=== PATIENT | female | born 1945 | race Caucasian/White ===

== ENCOUNTER 2017-04-19 16:59 | Inpatient (IN) | payer MEDICARE, BC ==
[~2017-04-19] VITALS: Ht 165.1 cm; Wt 84.4 kg
[~2017-04-19 16:59] MED LIST: AMLO5 PO; ASPI81TA45 PO; COMB0.2S EACH EYE; COZA100T PO; FENO50TA PO; FLUO20TA20 PO; GLUCTAB PO; HYDR-2768 PO; HYDR-3533 PO; HYDRA50 PO; ISOS30 PO; LEVA500T PO; LIPI20TA PO; METO50TA PO; PREM1.25 PO; TRAV0.00 EACH EYE
[2017-04-19 17:04] VITALS: BP 180/81; PULSE 61; RESP 18; TEMP 98.4; O2SAT 91
[2017-04-19] MEDS ORDERED: FLUO1TAB3 PO (17:39)
[2017-04-19] MEDS ORDERED: ESTR1.25 PO (17:39)
[2017-04-19] MEDS ORDERED: CELE1CAP8 PO (17:39)
[2017-04-19] MEDS ORDERED: METF500T PO (17:39)
[2017-04-19] MEDS ORDERED: CREO3000 PO (17:39)
[2017-04-19] MEDS ORDERED: AMLO5TAB2 PO (17:39)
[2017-04-19] MEDS ORDERED: HYDR-3516 PO (17:39)
[2017-04-19] MEDS ORDERED: COMB0.2S EACH EYE (17:39)
[2017-04-19] MEDS ORDERED: ASPI81CH6 CHEW (17:39)
[2017-04-19] MEDS ORDERED: TRAV0.00 EACH EYE (17:39)
[2017-04-19] MEDS ORDERED: METO25TA3 PO (17:39)
[2017-04-19] MEDS ORDERED: HYDR-3801 PO (17:39)
[2017-04-19] MEDS ORDERED: LOMO2.5T PO (17:39)
[2017-04-19] MEDS ORDERED: FENO145T2 PO (17:39)
[2017-04-19] MEDS ORDERED: OSEL75 PO (17:39)
[2017-04-19] MEDS ORDERED: ISOS30TA3 PO (17:39)
[2017-04-19] MEDS ORDERED: POTA10CA PO (17:39)
[2017-04-19] MEDS ORDERED: ATOR20TA15 PO (17:39)
[2017-04-19] MEDS ORDERED: HYOS1SUB SL ×2 (17:39)
[2017-04-19] MEDS ORDERED: HYDR25TA5 PO (17:39)
--- NOTE | 2017-04-19 17:40 | PD ---
HPI Chief Complaint: Cold / Flu Symptoms Time Seen by Provider: 17:31 Travel History International Travel<30 days: No Contact w/Intl Traveler<30days: No Traveled to known affect area: No History of Present Illness HPI 71-year-old female patient with history of hypertension, diabetes, presents to the ER today for 1 week history of nausea, vomiting, fatigue, body aches, diarrhea, and had seen her primary care doctor, diagnosed with influenza without testing, and given Tamiflu. She states that since then her symptoms are not improving, she is feeling more weak, not able to eat or drink much. She states that she is mostly nauseous today but has not vomited. She is incontinent of stool. She denies any abdominal pain, chest pains, or other issues. She does not know any sick contacts. Modifying Factors: None Associated Signs & Symptoms: Nausea, vomiting, diarrhea, gentle fatigue Risk Factors: On Tamiflu, suspect of having influenza PFSH Past Medical History Hx Anticoagulant Therapy: Yes Arthritis: Yes Asthma: Yes Cancer: Yes (SKIN) Cardiovascular Problems: Yes High Cholesterol: Yes Diabetes: Yes Patient Takes Glucophage: Yes Diminished Hearing: No Genitourinary: No Hypertension: Yes Musculoskeletal: No Neurologic: No Psychiatric: No Reproductive: No Respiratory: Yes Triglycerides - High: Yes Tetanus Vaccination: < 5 Years Influenza Vaccination: No ?: Not Menopausal: Yes : 1 Para: 1 Miscarriage: 0 : 0 Past Surgical History Abdominal Surgery: Yes (HERNIA REPAIR, BOWEL OBSTRUCTION) Cholecystectomy: Yes Eye Surgery: Yes (rt retinal repair) Hysterectomy: Yes Other Surgery: Yes (CORRECTIVE SURGERY L FOOT.) Social History Alcohol Use: No Tobacco Use: No Substance Use: No Allergies-Medications (Allergen,Severity, Reaction): Coded Allergies: metronidazole (Unverified Allergy, Severe, Itching, 04/19/17) morphine (Verified Allergy, Severe, Itching, jittery, 04/19/17) penicillin G (Unverified Allergy, Severe, HIVES, 04/19/17) Reported Meds & Prescriptions Reported Meds & Active Scripts Active Reported Lomotil (Diphenoxylate-Atropine) 2.5-0.025 Mg Tab 1 Tab PO Q6H PRN Hyoscyamine Odt (Hyoscyamine Sulfate) 0.125 Mg Subl 0.125 Mg SL Q6H Tamiflu (Oseltamivir Phosphate) 75 Mg Cap 75 Mg PO BID Hydrocodone-Acetaminophen 5-325 mg Tab 1 Tab PO Q6H PRN Hyoscyamine Odt (Hyoscyamine Sulfate) 0.125 Mg Subl 0.125 Mg SL Q6H Metoprolol Tartrate 25 Mg Tab 25 Mg PO TID Creon (Pancrelipase) 3,000-9,500-15,000 Units Cap 1 Cap PO TIDPC Celecoxib 200 Mg Cap 200 Mg PO DAILY Hydralazine (Hydralazine HCl) 100 Mg Tab 50 Mg PO TID Take with meals Potassium Chloride ER (Potassium Chloride) 10 Meq Cap 10 Meq PO DAILY Hydrochlorothiazide 25 Mg Tab 25 Mg PO DAILY Fluoxetine (Fluoxetine HCl) 20 Mg Tab 20 Mg PO DAILY Fenofibrate 145 Mg Tab 145 Mg PO DAILY Isosorbide Mononitrate ER (Isosorbide Mononitrate) 30 Mg Silvio 30 Mg PO DAILY Combigan Opth Drops (Brimonidine-Timolol Opth Drops) 0.2-0.5% Soln 1 Drop EACH EYE Q12HR Travatan Z Opth Drops (Travoprost) 0.004 % Soln 1 Drop EACH EYE HS Amlodipine (Amlodipine Besylate) 5 Mg Tab 5 Mg PO BID Metformin (Metformin HCl) 500 Mg Tab 500 Mg PO BIDPC Premarin (Estrogens Conjugated) 1.25 Mg Tab 1.25 Mg PO DAILY Atorvastatin (Atorvastatin Calcium) 20 Mg Tab 20 Mg PO HS Aspirin Low Dose (Aspirin) 81 Mg Chew 81 Mg CHEW DAILY Review of Systems Except as stated in HPI: all other systems reviewed are Neg Physical Exam Narrative GENERAL: Well-developed elderly white female patient currently in mild distress. Awake and oriented 3. SKIN: Focused skin assessment warm/dry. HEAD: Atraumatic. Normocephalic. EYES: Pupils equal and round. No scleral icterus. No injection or drainage. ENT: No nasal bleeding or discharge. Mucous membranes pink and moist. NECK: Trachea midline. No JVD. Supple. CARDIOVASCULAR: Regular rate and rhythm. No murmur appreciated. RESPIRATORY: No accessory muscle use. Clear to auscultation. Breath sounds equal bilaterally. GASTROINTESTINAL: Abdomen soft, non-tender, nondistended. Hepatic and splenic margins not palpable. MUSCULOSKELETAL: No obvious deformities. No clubbing. No cyanosis. No edema. NEUROLOGICAL: Awake and alert. No obvious cranial nerve deficits. Motor grossly within normal limits. Normal speech. PSYCHIATRIC: Appropriate mood and affect; insight and judgment normal. Data Data Last Documented VS Vital Signs Date Time Temp Pulse Resp B/P (MAP) Pulse Ox O2 Delivery O2 Flow Rate FiO2 04/19/17 20:15 64 18 183/88 (119) 95 Nasal Cannula 3.00 04/19/17 17:04 98.4 Orders Orders Sepsis Workup Initiated (04/19/17 ) Complete Blood Count With Diff (04/19/17 17:31) Comprehensive Metabolic Panel (04/19/17 17:31) Lactic Acid Sepsis Protocol (04/19/17 17:31) Magnesium (Mg) (04/19/17:31) Lipase (04/19/17:) Urinalysis - C+S If Indicated (04/19/17:) Influenzae A/B Antigen (04/19/17 17:31) Blood Culture (04/19/17:31) Chest, Single Ap (04/19/17:31) Blood Glucose (04/19/17:31) Ecg Monitoring (04/19/17 17:31) Iv Access Insert/Monitor (04/19/17 17:31) Oximetry (04/19/17 17:31) Oxygen Administration (04/19/17 17:31) Sodium Chlor 0.9% 1000 Ml Inj (Ns 1000 M (04/19/17 17:45) Ondansetron Inj (Zofran Inj) (04/19/17 17:45) Ct Abd/Pel W Iv Contrast(Rout) (04/19/17 19:01) Promethazine Inj (Phenergan Inj) (04/19/17 19:15) Iohexol 350 Inj (Omnipaque 350 Inj) (04/19/17 19:58) Admit Order (Ed Use Only) (04/19/17 21:05) Labs Laboratory Tests Test 04/19/17 17:50 04/19/17 19:30 04/19/17 20:20 White Blood Count 4.5 TH/MM3 Red Blood Count 3.89 MIL/MM3 Hemoglobin 12.2 GM/DL Hematocrit 35.1 % Mean Corpuscular Volume 90.2 FL Mean Corpuscular Hemoglobin 31.5 PG Mean Corpuscular Hemoglobin Concent 34.9 % Red Cell Distribution Width 13.0 % Platelet Count 285 TH/MM3 Mean Platelet Volume 7.7 FL CBC Comment AUTO DIFF Differential Total Cells Counted 100 Neutrophils % (Manual) 48 % Band Neutrophils % 10 % Lymphocytes % 17 % Monocytes % 25 % Neutrophils # (Manual) 2.6 TH/MM3 Differential Comment FINAL DIFF MANUAL Platelet Estimate NORMAL Platelet Morphology Comment NORMAL Blood Urea Nitrogen 16 MG/DL Creatinine 0.51 MG/DL Random Glucose 133 MG/DL Total Protein 7.1 GM/DL Albumin 2.9 GM/DL Calcium Level 7.8 MG/DL Magnesium Level 1.6 MG/DL Alkaline Phosphatase 34 U/L Aspartate Amino Transf (AST/SGOT) 45 U/L Alanine Aminotransferase (ALT/SGPT) 30 U/L Total Bilirubin 0.2 MG/DL Sodium Level 116 MEQ/L Potassium Level 3.3 MEQ/L Chloride Level 77 MEQ/L Carbon Dioxide Level 30.4 MEQ/L Anion Gap 9 MEQ/L Estimat Glomerular Filtration Rate 119 ML/MIN Lactic Acid Level 2.4 mmol/L 1.7 mmol/L Lipase 155 U/L Urine Collection Type CLEAN CATCH Urine Color YELLOW Urine Turbidity CLEAR Urine pH 6.0 Urine Specific [place] 1.013 Urine Protein NEG mg/dL Urine Glucose (UA) NEG mg/dL Urine Ketones NEG mg/dL Urine Occult Blood NEG Urine Nitrite NEG Urine Bilirubin NEG Urine Leukocyte Esterase NEG Urine RBC 0-3 /hpf Urine WBC 0-2 /hpf Urine Squamous Epithelial Cells 0-5 /hpf Urine Bacteria OCC /hpf Urine Mucus OCC /lpf Microscopic Urinalysis Comment CULT NOT INDICATED MDM Medical Decision Making Medical Screen Exam Complete: Yes Emergency Medical Condition: Yes Medical Record Reviewed: Yes Interpretation(s) Laboratory Tests Test 04/19/17 17:50 04/19/17 19:30 04/19/17 20:20 Red Blood Count 3.89 MIL/MM3 (4.00-5.30) Band Neutrophils % 10 % (0-6) Monocytes % 25 % (0-8) Random Glucose 133 MG/DL (74-106) Albumin 2.9 GM/DL (3.4-5.0) Calcium Level 7.8 MG/DL (8.5-10.1) Alkaline Phosphatase 34 U/L (45-117) Aspartate Amino Transf (AST/SGOT) 45 U/L (15-37) Sodium Level 116 MEQ/L (136-145) Potassium Level 3.3 MEQ/L (3.5-5.1) Chloride Level 77 MEQ/L (98-107) Lactic Acid Level 2.4 mmol/L (0.4-2.0) Urine Bacteria OCC /hpf (NONE) Last 24 hours Impressions Abdomen/Pelvis CT 04/19/17 1901 Signed Impressions: Service Date/Time: Wednesday, April 19, 2017 19:48 - CONCLUSION: No acute findings. Mild diverticula throughout the colon without radiographic evidence of diverticulitis. Osmar Leger MD Chest X-Ray 04/19/17 1731 Signed Impressions: Service Date/Time: Wednesday, April 19, 2017 17:37 - CONCLUSION: The lungs are clear. Osmar Leger MD Differential Diagnosis Nausea, vomiting, diarrhea, general weakness: Dehydration versus gastroenteritis versus influenza versus other acute intra-abdominal processes Narrative Course Influenza testing is positive for influenza. She has significant hyponatremia. IV fluids and Zofran as well as Phenergan was given in the ER. CAT scan of the abdomen did not show any signs of acute intra-abdominal processes. At this point, my plan would be to admit her for further evaluation and treatment of her left light abnormalities, dehydration, and influenza. Case was discussed with Dr. Kumar for admission. Diagnosis Primary Impression: Influenza Additional Impressions: Hyponatremia Dehydration, severe Admitting Information Admitting Physician Requests: Admit Anshul Akbar MD Apr 19, 2017 17:40
[2017-04-19] MEDS ORDERED: ONDANSETRON HCL 4 MG/2 ML VIAL IV PUSH ONE (17:45)
[2017-04-19] MEDS ORDERED: SODIUM CHLOR 0.9% 1000 ML INJ 1,000 ML IV ONE (17:45)
--- NOTE | 2017-04-19 17:50 | RADRPT ---
EXAM DATE/TIME: 04/19/2017 17:37 [facility] COMPARISON: CHEST SINGLE AP, September 04, 2015, 5:24. INDICATIONS : Cough. MEDICAL HISTORY : Hypertension. Diabetes mellitus type II. Carcinoma, basal cell. Hypercholesterolemia. SURGICAL HISTORY : Thoracotomy ENCOUNTER: Initial ACUITY: 3 days PAIN SCORE: 0/10 LOCATION: Bilateral chest FINDINGS: A single view of the chest demonstrates the lungs to be symmetrically aerated without evidence of mas s, infiltrate or effusion. The cardiomediastinal contours are unremarkable. Osseous structures are intact. CONCLUSION: The lungs are clear. Osmar Leger MD on April 19, 2017 at 17:48 Board Certified Radiologist. This report was verified electronically.
[2017-04-19 18:00] VITALS: BP 178/81; PULSE 59; RESP 18; O2SAT 92
[2017-04-19 18:07] LABS: HEMATOCRIT 35.1 % (35.0-46.0); HEMOGLOBIN 12.2 GM/DL (11.6-15.3); MEAN CELL VOLUME 90.2 FL (80.0-100.0); MEAN CORPUSCULAR HEMOGLOBIN 31.5 PG (27.0-34.0); MEAN CORPUSCULAR HGB CONC 34.9 % (32.0-36.0); MEAN PLATELET VOLUME 7.7 FL (7.0-11.0); PLATELET COUNT 285 TH/MM3 (150-450); RED BLOOD COUNT 3.89 MIL/MM3 (4.00-5.30); WHITE BLOOD COUNT 4.5 TH/MM3 (4.0-11.0)
[2017-04-19 18:28] LABS: LACTIC ACID SEPSIS PROTOCOL 2.4 mmol/L (0.4-2.0)
[2017-04-19 18:33] LABS: ALBUMIN 2.9 GM/DL (3.4-5.0); ALKALINE PHOSPHATASE 34 U/L (45-117); ALT (GPT) 30 U/L (10-53); AST (GOT) 45 U/L (15-37); BICARBONATE 30.4 MEQ/L (21.0-32.0); BLOOD UREA NITROGEN 16 MG/DL (7-18); CALCIUM 7.8 MG/DL (8.5-10.1); CHLORIDE 77 MEQ/L (98-107); CREATININE 0.51 MG/DL (0.50-1.00); GLOMERULAR FILTRATION RATE 119 ML/MIN (>89); GLUCOSE,RANDOM 133 MG/DL (74-106); MAGNESIUM 1.6 MG/DL (1.5-2.5); TOTAL BILIRUBIN ADULT 0.2 MG/DL (0.2-1.0); TOTAL PROTEIN 7.1 GM/DL (6.4-8.2)
[2017-04-19 18:36] LABS: SODIUM (NA) 116 MEQ/L (136-145)
[2017-04-19 18:40] LABS: BANDS 10 % (0-6); LYMPHOCYTES 17 % (9-44); MONOCYTES 25 % (0-8); NEUTROPHIL # MANUAL DIFF 2.6 TH/MM3 (1.8-7.7); POLYS (SEG NEUTROPHILS) 48 % (16-70)
[2017-04-19 19:00] VITALS: BP 179/84; PULSE 64; RESP 18; O2SAT 94
[2017-04-19] MEDS ORDERED: PROMETHAZINE INJ 25 MG/ML VIAL IM ONE (19:15)
[2017-04-19 19:38] LABS: BILIRUBIN, URINE NEG (NEG); BLOOD, URINE NEG (NEG); GLUCOSE,URINE NEG (NEG); KETONE, URINE NEG (NEG); NITRITE,URINE NEG (NEG); URINE LEUKOCYTE ESTERASE NEG (NEG)
[2017-04-19 19:47] LABS: URINE COLOR YELLOW (YELLW/STRAW)
[2017-04-19 19:48] LABS: BACTERIA, URINE OCC /hpf; SQUAMOUS EPITHELIAL CELL URINE 0-5 /hpf (0-5); WBC, URINE 0-2 /hpf (0-5)
[2017-04-19 19:49] LABS: MUCUS URINE OCC /lpf (OCC); RBC, URINE 0-3 /hpf (0-3)
[2017-04-19] MEDS ORDERED: IOHEXOL 350 MG/ML 10 ML VIAL (for RAD DIAG) IVCONTRAST ONE (19:58)
[2017-04-19 20:15] VITALS: BP 183/88; PULSE 64; RESP 18; O2SAT 95
--- NOTE | 2017-04-19 20:23 | RADRPT ---
EXAM DATE/TIME: 04/19/2017 19:48 [facility] COMPARISON: CT ABDOMEN & PELVIS W CONTRAST, August 27, 2015, 13:01. INDICATIONS : Right upper quadrant pain, nausea, vomiting and diarrhea x 2 days. IV CONTRAST: 85 cc Omnipaque 350 (iohexol) IV ORAL CONTRAST: No oral contrast ingested. RADIATION DOSE: 20.08 CTDIvol (mGy) MEDICAL HISTORY : Diabetes mellitus type 2. Hypertension. Asthma. SURGICAL HISTORY : Cholecystectomy. Hysterectomy.Hernia repair. ENCOUNTER: Initial ACUITY: 2 days PAIN SCALE: 5/10 LOCATION: Right upper quadrant TECHNIQUE: Volumetric scanning of the abdomen and pelvis was performed. Using automated exposure control and ad justment of the mA and/or kV according to patient size, radiation dose was kept as low as reasonably achievable to obtain optimal diagnostic quality images. DICOM format image data is available electro nically for review and comparison. FINDINGS: LOWER LUNGS: The visualized lower lungs are clear. LIVER: Hepatomegaly with prominence of the left lobe, similar to prior. Homogeneous density without lesion. There is no dilation of the biliary tree. Cholecystectomy. SPLEEN: Normal size without lesion. PANCREAS: Within normal limits. KIDNEYS: Normal in size and shape. There is no mass, stone or hydronephrosis. Small left renal cyst, stable from prior. ADRENAL GLANDS: Within normal limits. VASCULAR: There is no aortic aneurysm. BOWEL/MESENTERY: No dilated loops of small or large bowel. Scattered diverticula throughout the colon without radiogr aphic evidence of diverticulitis. No evidence of free fluid. ABDOMINAL WALL: Within normal limits. RETROPERITONEUM: There is no lymphadenopathy. BLADDER: No wall thickening or mass. REPRODUCTIVE: Within normal limits. INGUINAL: There is no lymphadenopathy or hernia. MUSCULOSKELETAL: No fracture seen. Bone island in the left femoral neck, stable from prior. CONCLUSION: No acute findings. Mild diverticula throughout the colon without radiographic evidence of diverticul itis. Osmar Leger MD on April 19, 2017 at 20:14 Board Certified Radiologist. This report was verified electronically.
[2017-04-19] MEDS ORDERED: SENNOSIDES 8.6 MG TAB PO PRN (21:15)
[2017-04-19] MEDS ORDERED: ACETAMINOPHEN/HYDROcodone 325 MG/5 MG TAB PO PRN (21:15)
[2017-04-19] MEDS ORDERED: LACTULOSE SYRUP 20 GM/30 ML CUP PO PRN (21:15)
[2017-04-19] MEDS ORDERED: Vancomycin Consult Pharmacy 1 EA OTHER SCH (21:15)
[2017-04-19] MEDS ORDERED: BISACODYL 10 MG SUPP RECTAL PRN (21:15)
[2017-04-19] MEDS ORDERED: SODIUM CHLORIDE 0.9% FLUSH 10 ML FLUSH IV FLUSH PRN (21:15)
[2017-04-19] MEDS ORDERED: ACETAMINOPHEN/HYDROcodone 325 MG/10 MG TAB PO PRN (21:15)
[2017-04-19] MEDS ORDERED: MAGNESIUM HYDROXIDE SUSP 30 ML CUP PO PRN (21:15)
[2017-04-19] MEDS ORDERED: ACETAMINOPHEN 325 MG TAB PO PRN (21:15)
[2017-04-19] MEDS ORDERED: ONDANSETRON HCL 4 MG/2 ML VIAL IVP PRN (21:15)
[2017-04-19] MEDS ORDERED: POTASSIUM CHLORIDE 20 MEQ CONTROLLED RELEASE TAB PO ONE (21:15)
[2017-04-19 21:20] VITALS: BP 173/79; PULSE 72; RESP 18; O2SAT 94
[2017-04-19] MEDS ORDERED: VANCOMYCIN 1,500 MG/NS 500 ML IV ONE ×2 (22:00)
[2017-04-19] MEDS: SODIUM CHLOR 0.9% 1000 ML INJ 1,000 ML IV SCH (22:31)
[2017-04-19] MEDS: OSELTAMIVIR PHOSPHATE 75 MG CAP PO SCH (22:32)
[2017-04-19 22:45] VITALS: BP 168/73
[2017-04-20] VITALS (9 sets, daily range): BP systolic 113–197; BP diastolic 56–81; PULSE 58–74; RESP 18–20; TEMP 97.3–98.5; O2SAT 90–96
[2017-04-20] MEDS ORDERED: hydrALAZINE HCL 50 MG TAB PO ONE (03:30)
[2017-04-20] MEDS ORDERED: amLODIPine BESYLATE 5 MG TAB PO ONE (03:30)
[2017-04-20] MEDS ORDERED: METOPROLOL TARTRATE 25 MG TAB PO ONE (03:30)
[2017-04-20 07:37] LABS: AUTOMATED NEUTROPHIL # 3.5 TH/MM3 (1.8-7.7); BASOPHIL # 0.1 TH/MM3 (0-0.2); BASOPHIL % 0.9 % (0.0-2.0); EOSINOPHIL % 0.1 % (0.0-4.0); HEMATOCRIT 36.2 % (35.0-46.0); HEMOGLOBIN 11.3 GM/DL (11.6-15.3); LYMPH % 23.4 % (9.0-44.0); LYMPHOCYTE # 1.5 TH/MM3 (1.0-4.8); MEAN CELL VOLUME 91.6 FL (80.0-100.0); MEAN CORPUSCULAR HEMOGLOBIN 28.7 PG (27.0-34.0); MEAN CORPUSCULAR HGB CONC 31.3 % (32.0-36.0); MONOCYTE # 1.2 TH/MM3 (0-0.9); NEUT % 56.6 % (16.0-70.0); PLATELET COUNT 247 TH/MM3 (150-450); RED BLOOD COUNT 3.95 MIL/MM3 (4.00-5.30); RED CELL DISTRIBUTION WIDTH 12.3 % (11.6-17.2); WHITE BLOOD COUNT 6.3 TH/MM3 (4.0-11.0)
[2017-04-20 07:48] LABS: CHLORIDE 97 MEQ/L (98-107); SODIUM (NA) 136 MEQ/L (136-145)
[2017-04-20 08:01] LABS: ALBUMIN 2.8 GM/DL (3.4-5.0); ALKALINE PHOSPHATASE 30 U/L (45-117); ALT (GPT) 27 U/L (10-53); AST (GOT) 39 U/L (15-37); BICARBONATE 33.8 MEQ/L (21.0-32.0); BLOOD UREA NITROGEN 10 MG/DL (7-18); CALCIUM 7.8 MG/DL (8.5-10.1); CREATININE 0.48 MG/DL (0.50-1.00); GLOMERULAR FILTRATION RATE 127 ML/MIN (>89); GLUCOSE,RANDOM 87 MG/DL (74-106); TOTAL BILIRUBIN ADULT 0.3 MG/DL (0.2-1.0); TOTAL PROTEIN 6.3 GM/DL (6.4-8.2)
--- NOTE | 2017-04-20 08:10 | HHI.HP ---
HPI Service [facility] Primary Care Physician Torito Mojica MD Admission Diagnosis influenza/severe dehydration/hyponatremia Diagnoses: Chief Complaint: Flu like symptoms Travel History International Travel<30 Days: No Contact w/Intl Traveler <30 Da: No Traveled to Known Affected Are: No History of Present Illness This is a pleasant 71 y/o Female with Hypertension, DM II, who came to ER with one week history of nausea, vomit, malaise, body aches, Diarrhea, seen by her Primary Care Physician, with diagnosis of Influenza without laboratory confirmation was given Tamiflu, Not improving symptomatology felt more weak, not able to eat or drink, denied abdominal pain, chest pain, No sick contacts, seen in her bedroom as we know she has OA, Asthma Skin Cancer history, Hyperlipidemia, DM II, Hypertension, Depression and Glaucoma, at this time improving, now no Nausea or vomit but she has Diarrhea, states she has IBS, has Hypokalemia and her Hypomagnesemia was not corrected was recommended for correction at this time. Review of Systems Constitutional: COMPLAINS OF: Fatigue, DENIES: Fever, Chills, Change in appetite Endocrine: DENIES: Heat/cold intolerance Eyes: DENIES: Blurred vision, Eye pain Gastrointestinal: COMPLAINS OF: Diarrhea Except as stated in HPI: all other systems reviewed are Neg Past Family Social History Past Medical History OA Asthma Skin Cancer Hyperlipidemia DM II Hypertension Depression Glaucoma Past Surgical History Incisional Hernia repair Bowel obstruction Cholecystectomy Retinal repair LITA Left foot surgery Reported Medications Reported Meds & Active Scripts Active Reported Lomotil (Diphenoxylate-Atropine) 2.5-0.025 Mg Tab 1 Tab PO Q6H PRN Hyoscyamine Odt (Hyoscyamine Sulfate) 0.125 Mg Subl 0.125 Mg SL Q6H Tamiflu (Oseltamivir Phosphate) 75 Mg Cap 75 Mg PO BID Hydrocodone-Acetaminophen 5-325 mg Tab 1 Tab PO Q6H PRN Hyoscyamine Odt (Hyoscyamine Sulfate) 0.125 Mg Subl 0.125 Mg SL Q6H Metoprolol Tartrate 25 Mg Tab 25 Mg PO TID Creon (Pancrelipase) 3,000-9,500-15,000 Units Cap 1 Cap PO TIDPC Celecoxib 200 Mg Cap 200 Mg PO DAILY Hydralazine (Hydralazine HCl) 100 Mg Tab 50 Mg PO TID Take with meals Potassium Chloride ER (Potassium Chloride) 10 Meq Cap 10 Meq PO DAILY Hydrochlorothiazide 25 Mg Tab 25 Mg PO DAILY Fluoxetine (Fluoxetine HCl) 20 Mg Tab 20 Mg PO DAILY Fenofibrate 145 Mg Tab 145 Mg PO DAILY Isosorbide Mononitrate ER (Isosorbide Mononitrate) 30 Mg Silvio 30 Mg PO DAILY Combigan Opth Drops (Brimonidine-Timolol Opth Drops) 0.2-0.5% Soln 1 Drop EACH EYE Q12HR Travatan Z Opth Drops (Travoprost) 0.004 % Soln 1 Drop EACH EYE HS Amlodipine (Amlodipine Besylate) 5 Mg Tab 5 Mg PO BID Metformin (Metformin HCl) 500 Mg Tab 500 Mg PO BIDPC Premarin (Estrogens Conjugated) 1.25 Mg Tab 1.25 Mg PO DAILY Atorvastatin (Atorvastatin Calcium) 20 Mg Tab 20 Mg PO HS Aspirin Low Dose (Aspirin) 81 Mg Chew 81 Mg CHEW DAILY Allergies: Coded Allergies: metronidazole (Unverified Allergy, Severe, Itching, 04/19/17) morphine (Verified Allergy, Severe, Itching, jittery, 04/19/17) penicillin G (Unverified Allergy, Severe, HIVES, 04/19/17) Active Ordered Medications Current Medications Medications (Trade) Dose Ordered Sig/Di Route Start Time Stop Time Status Last Admin Sodium Chloride 1,000 ml @ 100 mls/hr Q10H IV 04/19/17 21:12 04/20/17 09:28 (NS Flush) 2 ml UNSCH PRN IV FLUSH 04/19/17 21:15 (NS Flush) 2 ml BID IV FLUSH 04/20/17 09:00 04/20/17 09:35 (Zofran Inj) 4 mg Q6H PRN IVP 04/19/17 21:15 (Tylenol) 650 mg Q6H PRN PO 04/19/17 21:15 ([place] 5-325 Mg) 1 tab Q4H PRN PO 04/19/17 21:15 ([place] 10-325 Mg) 1 tab Q4H PRN PO 04/19/17 21:15 (Meghann-Colace) 1 tab BID PO 04/20/17 09:00 04/20/17 09:29 (Milk Of Magnesia Liq) 30 ml Q12H PRN PO 04/19/17 21:15 (Senokot) 17.2 mg Q12H PRN PO 04/19/17 21:15 (Dulcolax Supp) 10 mg DAILY PRN RECTAL 04/19/17 21:15 (Lactulose Liq) 30 ml DAILY PRN PO 04/19/17 21:15 (Tamiflu) 75 mg BID PO 04/19/17 21:45 04/20/17 09:30 Pharmacy Profile Note 0 ml @ 0 mls/hr UNSCH OTHER 04/19/17 21:15 Miscellaneous Information SPECIFIC LAB TO BE DRAWN:VANCOMYCIN TROUGH DATE TO... ONCE ONCE .XX 04/21/17 10:45 04/21/17 10:46 Magnesium Sulfate/ Dextrose 100 ml @ 100 mls/hr Q1H IV 04/20/17 09:00 04/20/17 10:59 04/20/17 09:29 (KCl) 40 meq ONCE ONCE PO 04/20/17 11:00 04/20/17 11:01 (Pepcid) 20 mg BID PO 04/20/17 09:00 04/20/17 09:29 (Carafate) 1 gm ACHS PO 04/20/17 12:00 (Duoneb Neb) 1 ampule Q4HR NEB NEB 04/20/17 12:00 (Mucinex Er) 600 mg BID PO 04/20/17 21:00 (NovoLOG SUPPLEMENTAL SCALE) 1 ACHS SLIDING SCALE SQ 04/20/17 12:00 Family History Mother with Hypertension Father with Hypertension Social History Lives alone and denies any toxic habits. Physical Exam Vital Signs Vital Signs Date Time Temp Pulse Resp B/P (MAP) Pulse Ox O2 Delivery O2 Flow Rate FiO2 04/20/17 04:00 97.3 58 20 113/56 (75) 93 04/20/17 00:00 62 04/20/17 00:00 98.1 67 20 197/81 (119) 93 04/19/17 22:45 62 18 168/73 (104) 94 3.00 04/19/17 21:20 72 18 173/79 (110) 94 Nasal Cannula 3.00 2/10/18 20:15 64 18 183/88 (119) 95 Nasal Cannula 3.00 04/19/17 19:00 64 18 179/84 (115) 94 Nasal Cannula 3.00 04/19/17 18:00 92 Nasal Cannula 2.00 04/19/17 18:00 92 Nasal Cannula 2.00 04/19/17 18:00 59 18 178/81 (113) 92 Nasal Cannula 2.00 04/19/17 17:04 98.4 61 18 180/81 (114) 91 Physical Exam GENERAL: Obesity, no acute distress. SKIN: Focused skin assessment warm/dry. HEAD: Atraumatic. Normocephalic. EYES: Pupils equal and round. No scleral icterus. No injection or drainage. ENT: No nasal bleeding or discharge. Mucous membranes pink and moist. NECK: Trachea midline. No JVD. Supple. CARDIOVASCULAR: Regular rate and rhythm. No murmur appreciated. RESPIRATORY: No accessory muscle use. Clear to auscultation. Breath sounds equal bilaterally. GASTROINTESTINAL: Abdomen soft, non-tender, nondistended. Hepatic and splenic margins not palpable. MUSCULOSKELETAL: No obvious deformities. No clubbing. No cyanosis. No edema. NEUROLOGICAL: Awake and alert. No obvious cranial nerve deficits. Motor grossly within normal limits. Normal speech. PSYCHIATRIC: Appropriate mood and affect; insight and judgment normal. Laboratory Laboratory Tests Test 04/19/17 17:50 04/19/17 19:30 04/19/17 20:20 04/20/17 07:08 White Blood Count 4.5 6.3 Red Blood Count 3.89 3.95 Hemoglobin 12.2 11.3 Hematocrit 35.1 36.2 Mean Corpuscular Volume 90.2 91.6 Mean Corpuscular Hemoglobin 31.5 28.7 Mean Corpuscular Hemoglobin Concent 34.9 31.3 Red Cell Distribution Width 13.0 12.3 Platelet Count 285 247 Mean Platelet Volume 7.7 8.0 CBC Comment AUTO DIFF DIFF FINAL Differential Total Cells Counted 100 Neutrophils % (Manual) 48 Band Neutrophils % 10 Lymphocytes % 17 Monocytes % 25 Neutrophils # (Manual) 2.6 Differential Comment FINAL DIFF MANUAL Platelet Estimate NORMAL Platelet Morphology Comment NORMAL Blood Urea Nitrogen 16 Creatinine 0.51 Random Glucose 133 Total Protein 7.1 Albumin 2.9 Calcium Level 7.8 Magnesium Level 1.6 Alkaline Phosphatase 34 Aspartate Amino Transf (AST/SGOT) 45 Alanine Aminotransferase (ALT/SGPT) 30 Total Bilirubin 0.2 Sodium Level 116 136 Potassium Level 3.3 3.2 Chloride Level 77 97 Carbon Dioxide Level 30.4 Anion Gap 9 Estimat Glomerular Filtration Rate 119 Lactic Acid Level 2.4 1.7 Lipase 155 Urine Collection Type CLEAN CATCH Urine Color YELLOW Urine Turbidity CLEAR Urine pH 6.0 Urine Specific [place] 1.013 Urine Protein NEG Urine Glucose (UA) NEG Urine Ketones NEG Urine Occult Blood NEG Urine Nitrite NEG Urine Bilirubin NEG Urine Leukocyte Esterase NEG Urine RBC 0-3 Urine WBC 0-2 Urine Squamous Epithelial Cells 0-5 Urine Bacteria OCC Urine Mucus OCC Microscopic Urinalysis Comment CULT NOT INDICATED Neutrophils (%) (Auto) 56.6 Lymphocytes (%) (Auto) 23.4 Monocytes (%) (Auto) 19.0 Eosinophils (%) (Auto) 0.1 Basophils (%) (Auto) 0.9 Neutrophils # (Auto) 3.5 Lymphocytes # (Auto) 1.5 Monocytes # (Auto) 1.2 Eosinophils # (Auto) 0.0 Basophils # (Auto) 0.1 Date/Time Source Procedure Growth Status 04/19/17 17:55 Blood Peripheral Aerobic Blood Culture Pending Received 04/19/17 17:55 Blood Peripheral Anaerobic Blood Culture Pending Received 04/19/17 17:50 Nasal Washing Influenza Types A,B Antigen (AUGIE) - Final Positive For Flu A Antigen Complete Result Diagram: 04/20/17 0708 04/20/17 0708 Imaging Last Impressions Abdomen/Pelvis CT 04/19/17 1901 Signed Impressions: Service Date/Time: Wednesday, April 19, 2017 19:48 - CONCLUSION: No acute findings. Mild diverticula throughout the colon without radiographic evidence of diverticulitis. Osmar Leger MD Chest X-Ray 04/19/17 1731 Signed Impressions: Service Date/Time: Wednesday, April 19, 2017 17:37 - CONCLUSION: The lungs are clear. Osmar Leger MD Caprini VTE Risk Assessment Caprini VTE Risk Assessment: Mod/High Risk (score >= 2) Caprini Risk Assessment Model Point Value = 1 Point Value = 2 Point Value = 3 Point Value = 5 Age 41-60 Minor surgery BMI > 25 kg/m2 Swollen legs Varicose veins or History of unexplained or recurrent spontaneous Oral contraceptives or hormone replacement Sepsis (< 1 month) Serious lung disease, including pneumonia (< 1 month) Abnormal pulmonary function Acute myocardial infarction Congestive heart failure (< 1 month) History of inflammatory bowel disease Medical patient at bed rest Age 61-74 Arthroscopic surgery Major open surgery (> 45 min) Laparoscopic surgery (> 45 min) Malignancy Confined to bed (> 72 hours) Immobilizing plaster cast Central venous access Age >= 75 History of VTE Family history of VTE Factor V Leiden Prothrombin [id number] Lupus anticoagulant Anticardiolipin antibodies Elevated serum homocysteine Heparin-induced thrombocytopenia Other congenital or acquired thrombophilia Stroke (< 1 month) Elective arthroplasty Hip, pelvis, or leg fracture Acute spinal cord injury (< 1 month) Prophylaxis Regimen Total Risk Factor Score Risk Level Prophylaxis Regimen 0-1 Low Early ambulation 2 Moderate Order ONE of the following: *Sequential Compression Device (SCD) *Heparin 5000 units SQ BID 3-4 Higher Order ONE of the following medications: *Heparin 5000 units SQ TID *Enoxaparin/Lovenox 40 mg SQ daily (WT < 150 kg, CrCl > 30 mL/min) *Enoxaparin/Lovenox 30 mg SQ daily (WT < 150 kg, CrCl > 10-29 mL/min) *Enoxaparin/Lovenox 30 mg SQ BID (WT < 150 kg, CrCl > 30 mL/min) AND/OR *Sequential Compression Device (SCD) 5 or more Highest Order ONE of the following medications: *Heparin 5000 units SQ TID (Preferred with Epidurals) *Enoxaparin/Lovenox 40 mg SQ daily (WT < 150 kg, CrCl > 30 mL/min) *Enoxaparin/Lovenox 30 mg SQ daily (WT < 150 kg, CrCl > 10-29 mL/min) *Enoxaparin/Lovenox 30 mg SQ BID (WT < 150 kg, CrCl > 30 mL/min) AND *Sequential Compression Device (SCD) Assessment and Plan Assessment and Plan 1. Influenza testing is positive for influenza A. to continue Tamiflu, continue supportive management for her malaise, with IV fluids continue Gastric protection with Carafate and Sucralfate, anti-emetics, CT abdomen did not show any acute process 2. Electrolyte derangement replaced and continue monitoring, her Sodium was corrected fast on admission, suspected to be acute Hyponatremia, receiving today 80 meq of Potassium chloride and 2 grams of magnesium sulfate 3. dehydration improved and following. 4. OA by history 5. Asthma by history with her actual Influenza A, added Bronchodilator, Mucolytic and incentive spirometry 6. Hyperlipidemia to continue Home medicines 7. DM II on sliding scale on hold 8. Hypertension to continue Home medicines 9. Depression to continue home medicines 10.Glaucoma continue Home medicines. DVT prophylaxis with Lovenox Expected Discharge by tomorrow if improving condition. Code Status Full code Discussed Condition With patient and nurse. Physician Certification 2 Midnight Certification Type: Admission for Inpatient Services Order for Inpatient Services The services are ordered in accordance with Medicare regulations or non- Medicare payer requirements, as applicable. In the case of services not specified as inpatient-only, they are appropriately provided as inpatient services in accordance with the 2-midnight benchmark. Estimated LOS (days): 3 days is the estimated time the patient will need to remain in the hospital, assuming treatment plan goals are met and no additional complications. Post-Hospital Plan: Home Yadiel Casper MD Apr 20, 2017 08:10
[2017-04-20] MEDS ORDERED: POTASSIUM CHLORIDE 20 MEQ CONTROLLED RELEASE TAB PO ONE ×2 (09:00→11:00)
[2017-04-20] MEDS: SODIUM CHLOR 0.9% 1000 ML INJ 1,000 ML IV SCH ×2 (09:28→17:44)
[2017-04-20] MEDS: DOCUSATE SODIUM 50 MG/SENNA 8.6 MG TAB PO SCH ×2 (09:29→22:36)
[2017-04-20] MEDS: FAMOTIDINE 20 MG TAB PO SCH ×2 (09:29→22:36)
[2017-04-20] MEDS: MAGNESIUM SULFATE 1 GM PREMIX 100 ML IV SCH ×2 (09:29→11:32)
[2017-04-20] MEDS: OSELTAMIVIR PHOSPHATE 75 MG CAP PO SCH ×2 (09:30→22:35)
[2017-04-20] MEDS: SODIUM CHLORIDE 0.9% FLUSH 10 ML FLUSH IV FLUSH SCH ×2 (09:35→22:36)
[2017-04-20] MEDS: ENOXAPARIN SODIUM 40 MG/0.4 ML SYRINGE SQ SCH (11:31)
[2017-04-20] MEDS: RESP: ALBUTEROL 2.5 MG/IPRATROPIUM 0.5 MG NEB (SCH) NEB ×4 (11:53→23:31)
[2017-04-20] MEDS: INSULIN ASPART SUPPLEMENTAL SCALE SQ SCH ×3 (12:00→21:00)
[2017-04-20] MEDS: METOPROLOL TARTRATE 25 MG TAB PO SCH ×2 (13:11→17:47)
[2017-04-20] MEDS: SUCRALFATE 1 GM TAB PO SCH ×3 (13:11→22:35)
[2017-04-20] MEDS: hydrALAZINE HCL 50 MG TAB PO SCH ×2 (13:11→17:47)
[2017-04-20] MEDS: VANCOMYCIN 1,500 MG/NS 500 ML IV SCH ×4 (13:12→23:08)
[2017-04-20 17:01] LABS: CHOLESTEROL 98 MG/DL (120-200); TRIGLYCERIDES 223 MG/DL (42-150)
[2017-04-20 17:02] LABS: CHOLESTEROL/ HDL RATIO 2.57 RATIO; LDL CHOLESTEROL 15 MG/DL (0-99)
[2017-04-20] MEDS ORDERED: NON-FORMULARY DRUG (Brimonidine-Timolol Opth Drops (Combigan Opth Drops) 1 DROP) EACH EYE SCH (21:00)
[2017-04-20] MEDS: amLODIPine BESYLATE 5 MG TAB PO SCH (22:35)
[2017-04-20] MEDS: ATORVASTATIN 20 MG TAB PO SCH (22:35)
[2017-04-20] MEDS: LATANOPROST 0.005% OPHT SOLN 2.5 ML BTL EACH EYE SCH (22:36)
[2017-04-20] MEDS: guaiFENesin E.R. 600 MG TAB PO SCH (22:36)
[2017-04-20] MEDS: TIMOLOL MALEATE 0.5% OPHT SOLN 5 ML BTL EACH EYE SCH (22:36)
[2017-04-20] MEDS: BRIMONIDINE TARTRATE 0.2% OPHT SOLN 5 ML BTL EACH EYE SCH (22:36)
[2017-04-21] VITALS (10 sets, daily range): BP systolic 126–193; BP diastolic 59–88; PULSE 65–88; RESP 18–20; TEMP 96.1–99.4; O2SAT 90–94
[2017-04-21] MEDS: SODIUM CHLOR 0.9% 1000 ML INJ 1,000 ML IV SCH ×3 (01:32→13:46)
[2017-04-21] MEDS: RESP: ALBUTEROL 2.5 MG/IPRATROPIUM 0.5 MG NEB (SCH) NEB ×6 (03:44→23:32)
[2017-04-21 06:49] LABS: BICARBONATE 29.6 MEQ/L (21.0-32.0); CALCIUM 7.6 MG/DL (8.5-10.1); CREATININE 0.39 MG/DL (0.50-1.00); PHOSPHORUS 1.8 MG/DL (2.5-4.9)
[2017-04-21] MEDS: OSELTAMIVIR PHOSPHATE 75 MG CAP PO SCH ×2 (08:34→21:10)
[2017-04-21] MEDS: SUCRALFATE 1 GM TAB PO SCH ×4 (08:34→21:10)
[2017-04-21] MEDS: FLUoxetine HCL 20 MG CAP PO SCH (08:34)
[2017-04-21] MEDS: POTASSIUM CHLORIDE 10 MEQ CAP PO SCH (08:34)
[2017-04-21] MEDS: METOPROLOL TARTRATE 25 MG TAB PO SCH ×3 (08:35→17:44)
[2017-04-21] MEDS: HYDROCHLOROTHIAZIDE 25 MG TAB PO SCH (08:35)
[2017-04-21] MEDS: hydrALAZINE HCL 50 MG TAB PO SCH ×3 (08:35→17:44)
[2017-04-21] MEDS: DOCUSATE SODIUM 50 MG/SENNA 8.6 MG TAB PO SCH ×2 (08:35→21:10)
[2017-04-21] MEDS: amLODIPine BESYLATE 5 MG TAB PO SCH ×2 (08:35→21:09)
[2017-04-21] MEDS: guaiFENesin E.R. 600 MG TAB PO SCH ×2 (08:35→21:10)
[2017-04-21] MEDS: ISOSORBIDE MONONITRATE 30 MG CR TAB (IMDUR) PO SCH (08:35)
[2017-04-21] MEDS: ASPIRIN 81 MG CHEW TAB CHEW SCH (08:35)
[2017-04-21] MEDS: FAMOTIDINE 20 MG TAB PO SCH ×2 (08:35→21:10)
[2017-04-21] MEDS: INSULIN ASPART SUPPLEMENTAL SCALE SQ SCH ×4 (08:36→21:00)
[2017-04-21] MEDS: TIMOLOL MALEATE 0.5% OPHT SOLN 5 ML BTL EACH EYE SCH ×2 (08:36→21:10)
[2017-04-21] MEDS: BRIMONIDINE TARTRATE 0.2% OPHT SOLN 5 ML BTL EACH EYE SCH ×2 (08:36→21:10)
[2017-04-21] MEDS: FENOFIBRATE 145 MG TAB PO SCH (08:37)
[2017-04-21] MEDS: SODIUM CHLORIDE 0.9% FLUSH 10 ML FLUSH IV FLUSH SCH ×2 (08:41→21:00)
[2017-04-21] MEDS ORDERED: PHARMACY ORDERED LAB ONE (10:45)
--- NOTE | 2017-04-21 12:03 | HHI.PR ---
Subjective Remarks Nursing denies any deterioration since last night. However respiratory therapy says that the patient was requiring 5 L this morning. In front of me she is able to titrate the patient down to 2 L quite rapidly and very well tolerated. Patient is also she feels better. Objective Vital Signs Date Time Temp Pulse Resp B/P (MAP) Pulse Ox O2 Delivery O2 Flow Rate FiO2 04/21/17 09:50 143/82 (102) 04/21/17 08:00 96.2 84 20 193/88 (123) 91 04/21/17 07:37 90 Nasal Cannula 4.00 04/21/17 00:00 97.5 65 19 126/66 (86) 94 04/20/17 20:00 64 04/20/17 20:00 97.7 67 18 128/59 (82) 93 04/20/17 19:32 96 Nasal Cannula 4.00 04/20/17 15:00 67 I/O 04/20/17 04/20/17 04/20/17 04/21/17 04/21/17 04/21/17 07:00 15:00 23:00 07:00 15:00 23:00 Intake Total 240 ml 650 ml 1000 ml Balance 240 ml 650 ml 1000 ml Intake Oral 240 ml 450 ml IV Total 200 ml 1000 ml # Voids 5 3 1 # Bowel Movements 3 Result Diagram: 04/20/17 0708 04/21/17 0515 Objective Remarks Diminished breath sounds in the bases, mild wheezing, minimally labored breathing, receiving nebulizer treatment currently A/P Assessment and Plan 1. influenza A. - continue Tamiflu 2. acute hypoxic resp failure -still fluctuating between 2-5 L. continue vancomycin, bronchodilators, mucolytics and steroids 5. Asthma by history with her actual Influenza A continue Bronchodilator, Mucolytic and incentive spirometry 6. Hyperlipidemia to continue Home medicines 7. DM II on sliding scale on hold 8. Hypertension to continue Home medicines 9. Depression to continue home medicines 10.Glaucoma continue Home medicines. Jovon Mcmanus MD Apr 21, 2017 12:03
[2017-04-21] MEDS: ENOXAPARIN SODIUM 40 MG/0.4 ML SYRINGE SQ SCH (12:32)
[2017-04-21 17:14] LABS: HEMOGLOBIN A1C 6.7 % (4.3-6.0)
[2017-04-21] MEDS: VANCOMYCIN 1,500 MG/NS 500 ML IV SCH ×2 (19:05)
[2017-04-21 20:48] LABS: CREATININE 0.5 MG/DL (0.50-1.00)
[2017-04-21] MEDS ORDERED: ALPRAZolam 0.25 MG TAB PO ONE (21:00)
[2017-04-21] MEDS: ATORVASTATIN 20 MG TAB PO SCH (21:10)
[2017-04-21] MEDS: LATANOPROST 0.005% OPHT SOLN 2.5 ML BTL EACH EYE SCH (21:17)
[2017-04-22] VITALS (10 sets, daily range): BP systolic 98–153; BP diastolic 66–106; PULSE 65–130; RESP 16–20; TEMP 96.6–98.3; O2SAT 87–94
[2017-04-22] MEDS: RESP: ALBUTEROL 2.5 MG/IPRATROPIUM 0.5 MG NEB (SCH) NEB ×5 (03:17→21:16)
[2017-04-22] MEDS: VANCOMYCIN 1,500 MG/NS 500 ML IV SCH ×2 (05:40)
[2017-04-22] MEDS: INSULIN ASPART SUPPLEMENTAL SCALE SQ SCH ×4 (08:00→22:21)
[2017-04-22] MEDS: POTASSIUM CHLORIDE 10 MEQ CAP PO SCH (09:00)
[2017-04-22] MEDS: TIMOLOL MALEATE 0.5% OPHT SOLN 5 ML BTL EACH EYE SCH ×2 (09:00→22:05)
[2017-04-22] MEDS: BRIMONIDINE TARTRATE 0.2% OPHT SOLN 5 ML BTL EACH EYE SCH ×2 (09:00→22:05)
[2017-04-22] MEDS: SODIUM CHLOR 0.9% 1000 ML INJ 1,000 ML IV SCH ×2 (09:12→23:50)
[2017-04-22] MEDS: LEVOFLOXACIN 750 MG PREMIX INJ 150 ML IV SCH (10:00)
[2017-04-22] MEDS: FENOFIBRATE 145 MG TAB PO SCH (10:00)
[2017-04-22] MEDS: SUCRALFATE 1 GM TAB PO SCH (10:00)
[2017-04-22] MEDS: FAMOTIDINE 20 MG TAB PO SCH ×2 (10:00→22:03)
[2017-04-22] MEDS: ISOSORBIDE MONONITRATE 30 MG CR TAB (IMDUR) PO SCH (10:00)
[2017-04-22] MEDS: amLODIPine BESYLATE 5 MG TAB PO SCH ×2 (10:00→22:04)
[2017-04-22] MEDS: HYDROCHLOROTHIAZIDE 25 MG TAB PO SCH (10:00)
[2017-04-22] MEDS: METOPROLOL TARTRATE 25 MG TAB PO SCH ×3 (10:00→18:00)
[2017-04-22] MEDS: guaiFENesin E.R. 600 MG TAB PO SCH ×2 (10:00→22:03)
[2017-04-22] MEDS: hydrALAZINE HCL 50 MG TAB PO SCH ×3 (10:00→18:00)
[2017-04-22] MEDS: ASPIRIN 81 MG CHEW TAB CHEW SCH (10:00)
[2017-04-22] MEDS: FLUoxetine HCL 20 MG CAP PO SCH (10:00)
[2017-04-22] MEDS: DOCUSATE SODIUM 50 MG/SENNA 8.6 MG TAB PO SCH ×2 (10:01→22:03)
[2017-04-22] MEDS: SODIUM CHLORIDE 0.9% FLUSH 10 ML FLUSH IV FLUSH SCH ×2 (10:01→22:04)
[2017-04-22] MEDS: OSELTAMIVIR PHOSPHATE 75 MG CAP PO SCH ×2 (10:01→22:22)
--- NOTE | 2017-04-22 10:38 | RADRPT ---
EXAM DATE/TIME: 04/22/2017 10:07 [facility] COMPARISON: CHEST SINGLE AP, April 19, 2017, 17:37. INDICATIONS : Dyspnea. MEDICAL HISTORY : Hypercholesterolemia. Irritable bowel syndrome. Hiatal hernia. Hypertension. Asthma. Arthritis. D iabetic. Skin CA. SURGICAL HISTORY : Cholecystectomy. Hysterectomy. Hernia repair. Bowel obstruction. Left foot. ENCOUNTER: Subsequent ACUITY: 4 - 6 days PAIN SCORE: 0/10 LOCATION: chest FINDINGS: PA and lateral views of the chest show diffuse pulmonary infiltrates throughout both lungs. Tiny bila teral pleural effusions. Heart is normal in size. No significant pulmonary vascular engorgement. A de generative thoracic spine. CONCLUSION: Bilateral pulmonary infiltrates and small effusions. Pulmonary edema suspected. Osmar Phipps Jr., MD on April 22, 2017 at 10:35 Board Certified Radiologist. This report was verified electronically.
--- NOTE | 2017-04-22 10:51 | HHI.PR ---
Subjective Remarks Nursing denies any deterioration since last night. However nursing reports that that the patient was requiring 5 L this morning. Patient says she does not feel any worse than yesterday. She is very anxious and would like something for her anxiety. Objective Vital Signs Date Time Temp Pulse Resp B/P (MAP) Pulse Ox O2 Delivery O2 Flow Rate FiO2 04/22/17 08:40 96.6 130 18 144/106 (119) 92 04/22/17 08:01 92 Nasal Cannula 4.00 04/22/17 04:30 91 04/22/17 04:00 98.1 105 20 149/81 (103) 87 04/22/17 00:00 97.8 103 20 128/68 (88) 92 04/21/17 20:30 93 Nasal Cannula 2.00 04/21/17 20:00 99.4 85 20 133/68 (89) 93 04/21/17 16:00 97.2 68 20 142/69 (93) 92 04/21/17 15:00 84 04/21/17 14:00 96.1 77 18 134/59 (84) 93 I/O 04/21/17 04/21/17 04/21/17 04/22/17 04/22/17 04/22/17 07:00 15:00 23:00 07:00 15:00 23:00 Intake Total 1000 ml 1000 ml 480 ml 480 ml Balance 1000 ml 1000 ml 480 ml 480 ml Intake Oral 480 ml 480 ml IV Total 1000 ml 1000 ml # Voids 1 1 2 # Bowel Movements 0 Result Diagram: 04/20/1708 04/21/172009 Objective Remarks Diminished breath sounds in the bases, junky breath sounds bilaterally, no conversant dyspnea, no cyanosis, on nasal cannula A/P Assessment and Plan 1. influenza A. - continue Tamiflu 2. acute hypoxic resp failure -still fluctuating between 2-5 L. We will repeat chest x-ray, add on Levaquin, continue vancomycin, bronchodilators, mucolytics and steroids 5. Asthma by history with her actual Influenza A continue Bronchodilator, Mucolytic 6. Hyperlipidemia to continue Home medicines 7. DM II on sliding scale on hold 8. Hypertension to continue Home medicines 9. Depression to continue home medicines 10.Glaucoma continue Home medicines. Addendum: Repeat chest x-ray independently reviewed, see classic picture for ARDS. ABG also ordered as well. Case discussed with technician plant and maintenance who will admit to [facility]. Jovon Mcmanus MD Apr 22, 2017 10:51
[2017-04-22] MEDS: ENOXAPARIN SODIUM 40 MG/0.4 ML SYRINGE SQ SCH (12:35)
[2017-04-22] MEDS ORDERED: methylPREDNISolone SOD SUCC 125 MG/2 ML VIAL IV PUSH ONE (16:00)
--- NOTE | 2017-04-22 18:51 | PD.CONS ---
History of Present Illness Service Infectious disease Consult Requested By DR Mcmanus Reason for Consult Influenza, ? ARDS Primary Care Physician Torito Mojica MD Diagnoses: (1) Influenza History of Present Illness 71 F started having tightness in chest last week- went to her PCP and was prescribed Tamiflu because of suspected Flu- however started having worsening shortness of breath and cough so came to ER - tested positive for Influenza A and was admitted. Has had some hypoxia dn worsening on CXR so ID consulted. Cough is non productive Review of Systems Constitutional: DENIES: Fever, Dizziness, Night Sweats Endocrine: DENIES: Polydipsia, Polyuria Eyes: DENIES: Vision loss, Photosensitivity Ears, nose, mouth, throat: COMPLAINS OF: Nasal discharge, DENIES: Hearing loss , Oral lesions, Hoarseness Respiratory: COMPLAINS OF: Cough, Wheezing, Shortness of breath, DENIES: Sputum production Cardiovascular: COMPLAINS OF: Dyspnea on Exertion, DENIES: Palpitations, Syncope Gastrointestinal: DENIES: Abdominal pain, Bloody stools, Constipation, Diarrhea Genitourinary: DENIES: Urinary frequency, Urinary incontinence Musculoskeletal: DENIES: Muscle aches, Joint Swelling Integumentary: DENIES: Nail changes, Breast masses Hematologic/lymphatic: DENIES: Bruising, Lymphadenopathy Immunologic/allergic: DENIES: Urticaria Neurologic: DENIES: Headache, Localized weakness, Paresthesias Psychiatric: DENIES: Confusion, Mood changes Past Family Social History Allergies: Coded Allergies: metronidazole (Unverified Allergy, Severe, Itching, 04/19/17) morphine (Verified Allergy, Severe, Itching, jittery, 04/19/17) penicillin G (Unverified Allergy, Severe, HIVES, 04/19/17) Past Medical History OA Asthma Skin Cancer Hyperlipidemia DM II Hypertension Depression Glaucoma Past Surgical History Incisional Hernia repair Bowel obstruction Cholecystectomy Retinal repair LITA Left foot surgery Active Ordered Medications Tamiflu Vancomycin Levofloxacin Family History Hypertension Social History Lives alone Has a dog and 2 cats No recent travel No smoking Physical Exam Vital Signs Vital Signs Date Time Temp Pulse Resp B/P (MAP) Pulse Ox O2 Delivery O2 Flow Rate FiO2 04/22/17 18:31 98.2 65 16 118/67 (84) 94 04/22/17 12:23 97.5 122 16 98/70 (79) 94 04/22/17 08:40 96.6 130 18 144/106 (119) 92 2/13/18 08:01 92 Nasal Cannula 4.00 04/22/17 04:30 91 04/22/17 04:00 98.1 105 20 149/81 (103) 87 04/22/17 00:00 97.8 103 20 128/68 (88) 92 04/21/17 20:30 93 Nasal Cannula 2.00 04/21/17 20:00 99.4 85 20 133/68 (89) 93 Physical Exam GENERAL: This is a anxious patient on nasal canula- able to talk in full sentences SKIN: No rashes, ecchymoses or lesions. Cool and dry. HEAD: Atraumatic. Normocephalic. No temporal or scalp tenderness. EYES: Pupils equal round and reactive. Extraocular motions intact. No scleral icterus. No injection or drainage. ENT: Nose without bleeding, purulent drainage or septal hematoma. Throat without erythema, tonsillar hypertrophy or exudate. Uvula midline. Airway patent. NECK: Trachea midline. No JVD or lymphadenopathy. Supple, nontender, no meningeal signs. CARDIOVASCULAR: Regular rate and rhythm without murmurs, gallops, or rubs. RESPIRATORY: Breath sounds decreased bilaterally with a wheeze posteriorly GASTROINTESTINAL: Abdomen soft, non-tender, nondistended. No hepato-splenomegaly , or palpable masses. No guarding. MUSCULOSKELETAL: Extremities without clubbing, cyanosis, or edema. No joint tenderness, effusion, or edema noted. No calf tenderness. Negative Homans sign bilaterally. NEUROLOGICAL: Awake and alert. Cranial nerves II through XII intact. Motor and sensory grossly within normal limits. Five out of 5 muscle strength in all muscle groups. Normal speech. Laboratory Laboratory Tests Test 04/21/17 20:10 04/22/17 09:45 04/22/17 15:25 Creatinine 0.50 Estimat Glomerular Filtration Rate 122 Procalcitonin 0.07 Blood Gas Puncture Site RT RADIAL Blood Gas Patient Temperature 98.6 Blood Gas HCO3 31 Blood Gas Base Excess 6.7 Blood Gas Oxygen Saturation 90 Arterial Blood pH 7.42 Arterial Blood Partial Pressure CO2 49 Arterial Blood Partial Pressure O2 58 Arterial Blood Oxygen Content 13.0 Arterial Blood Carboxyhemoglobin 1.8 Arterial Blood Methemoglobin 0.4 Blood Gas Hemoglobin 10.3 Oxygen Delivery Device NASAL CANNULA Blood Gas Liter Flow 3 Date/Time Source Procedure Growth Status 04/19/17 17:55 Blood Peripheral Aerobic Blood Culture - Preliminary NO GROWTH IN 3 DAYS Resulted 04/19/17 17:55 Blood Peripheral Anaerobic Blood Culture - Preliminary NO GROWTH IN 3 DAYS Resulted 04/19/17 17:50 Nasal Washing Influenza Types A,B Antigen (AUGIE) - Final Positive For Flu A Antigen Complete Result Diagram: 04/20/17 0708 04/21/172009 Assessment and Plan Problem List: (1) Influenza ICD Codes: J11.1 - Influenza due to unidentified influenza virus with other respiratory manifestations Status: Acute Plan: Finish course of Tamiflu (2) Pneumonia ICD Codes: J18.9 - Pneumonia, unspecified organism Plan: Follow cultures Stop IV Vancomycin Doxy 100 mg IV q 12hrs Levofloxacin 750 mg IV daily (3) Hypoxia ICD Codes: R09.02 - Hypoxemia Status: Acute (4) Asthma ICD Codes: J45.909 - Unspecified asthma, uncomplicated Status: Acute Mercedes Bonds MD Apr 22, 2017 18:51
[2017-04-22] MEDS ORDERED: CHLORHEXIDINE GLUCONATE 2 % 1 PACK (2 CLOTHS)(extra cloths) TOPICAL PRN (22:00)
[2017-04-22] MEDS: ATORVASTATIN 20 MG TAB PO SCH (22:04)
[2017-04-22] MEDS: LATANOPROST 0.005% OPHT SOLN 2.5 ML BTL EACH EYE SCH (22:05)
[2017-04-22] MEDS: DOXYCYCLINE INJ 100 MG in SODIUM CHLORIDE 0.9% INJ 100 ML IV SCH (23:52)
--- NOTE | 2017-04-22 23:52 | PD.CONS ---
[facility] Service Critical Care Medicine Consult Requested By Primary Care Physician Torito Mojica MD History of Present Illness 71-year-old female with a history of hypertension type 2 diabetes mellitus, presents to the hospital with one week history of nausea, vomit, malaise, body aches, Diarrhea. She was seen by her primary care physician and was diagnosed with influenza without confirmation by laboratory tests. She was given Tamiflu however her symptoms were not improving. She did feel more weak, was unable to eat or drink, however denied abdominal pain or chest pain. In the emergency department she tested positive for influenza A, was admitted to medicine, but her symptoms are worsening with development of shortness of breath. Her x-ray shows bilateral infiltrates questioning pulmonary edema. She has been seen by infectious disease in consultation and now is transferred to [facility] for possible early ARDS. Review of Systems Constitutional: DENIES: Diaphoretic episodes, Fatigue, Fever, Weight gain, Weight loss, Chills, Dizziness, Change in appetite, Night Sweats Endocrine: DENIES: Abnorml menstrual pattern, Heat/cold intolerance, Polydipsia , Polyuria, Polyphagia Eyes: DENIES: Blurred vision, Diplopia, Eye inflammation, Eye pain, Vision loss , Photosensitivity, Double Vision Ears, nose, mouth, throat: DENIES: Tinnitus, Hearing loss, Vertigo, Nasal discharge, Oral lesions, Throat pain, Hoarseness, Ear Pain, Running Nose, Epistaxis, Sinus Pain, Toothache, Odynophagia Respiratory: COMPLAINS OF: Cough, Sputum production, Shortness of breath, DENIES: Apneas, Snoring, Wheezing, Hemoptysis Cardiovascular: DENIES: Chest pain, Palpitations, Syncope, Dyspnea on Exertion , PND, Lower Extremity Edema, Orthopnea, Claudication Gastrointestinal: DENIES: Abdominal pain, Black stools, Bloody stools, Constipation, Diarrhea, Nausea, Vomiting, Difficulty Swallowing, Anorexia Genitourinary: DENIES: Abnormal vaginal bleeding, Dysmenorrhea, Dyspareunia, Sexual dysfunction, Urinary frequency, Urinary incontinence, Urgency, Hematuria , Dysuria, Nocturia, Vaginal discharge Musculoskeletal: COMPLAINS OF: Joint pain, Muscle aches, DENIES: Stiffness, Joint Swelling, Back pain, Neck pain Integumentary: DENIES: Abnormal pigmentation, Pruritus, Rash, Nail changes, Breast masses, Breast skin changes, Nipple discharge Hematologic/lymphatic: DENIES: Bruising, Lymphadenopathy Immunologic/allergic: DENIES: Eczema, Urticaria Neurologic: DENIES: Abnormal gait, Headache, Localized weakness, Paresthesias, Seizures, Speech Problems, Tremor, Poor Balance Psychiatric: COMPLAINS OF: Depression, DENIES: Anxiety, Confusion, Mood changes , Hallucinations, Agitation, Suicidal Ideation, Homicidal Ideation, Delusions Past Family Social History Allergies: Coded Allergies: metronidazole (Unverified Allergy, Severe, Itching, 04/19/17) morphine (Verified Allergy, Severe, Itching, jittery, 04/19/17) penicillin G (Unverified Allergy, Severe, HIVES, 04/19/17) Past Medical History OA Asthma Skin Cancer Hyperlipidemia DM II Hypertension Depression Glaucoma Past Surgical History Incisional Hernia repair Bowel obstruction Cholecystectomy Retinal repair LITA Left foot surgery Reported Medications Reported Meds & Active Scripts Active Reported Hyoscyamine Odt (Hyoscyamine Sulfate) 0.125 Mg Subl 0.125 Mg SL Q6H Tamiflu (Oseltamivir Phosphate) 75 Mg Cap 75 Mg PO BID Hydrocodone-Acetaminophen 5-325 mg Tab 1 Tab PO Q6H PRN Hyoscyamine Odt (Hyoscyamine Sulfate) 0.125 Mg Subl 0.125 Mg SL Q6H Metoprolol Tartrate 25 Mg Tab 25 Mg PO TID Creon (Pancrelipase) 3,000-9,500-15,000 Units Cap 1 Cap PO TIDPC Celecoxib 200 Mg Cap 200 Mg PO DAILY Hydralazine (Hydralazine HCl) 100 Mg Tab 50 Mg PO TID Take with meals Potassium Chloride ER (Potassium Chloride) 10 Meq Cap 10 Meq PO DAILY Hydrochlorothiazide 25 Mg Tab 25 Mg PO DAILY Fluoxetine (Fluoxetine HCl) 20 Mg Tab 20 Mg PO DAILY Fenofibrate 145 Mg Tab 145 Mg PO DAILY Isosorbide Mononitrate ER (Isosorbide Mononitrate) 30 Mg Silvio 30 Mg PO DAILY Combigan Opth Drops (Brimonidine-Timolol Opth Drops) 0.2-0.5% Soln 1 Drop EACH EYE Q12HR Travatan Z Opth Drops (Travoprost) 0.004 % Soln 1 Drop EACH EYE HS Amlodipine (Amlodipine Besylate) 5 Mg Tab 5 Mg PO BID Metformin (Metformin HCl) 500 Mg Tab 500 Mg PO BIDPC Premarin (Estrogens Conjugated) 1.25 Mg Tab 1.25 Mg PO DAILY Atorvastatin (Atorvastatin Calcium) 20 Mg Tab 20 Mg PO HS Aspirin Low Dose (Aspirin) 81 Mg Chew 81 Mg CHEW DAILY Active Ordered Medications Current Medications Medications (Trade) Dose Ordered Sig/Di Route PRN Reason Start Time Stop Time Status Last Admin Dose Admin Sodium Chloride 1,000 ml @ 100 mls/hr Q10H IV 04/19/17 21:12 04/22/17 23:50 Sodium Chloride (NS Flush) 2 ml UNSCH PRN IV FLUSH FLUSH AFTER USING IV ACCESS 04/19/17 21:15 Sodium Chloride (NS Flush) 2 ml BID IV FLUSH 04/20/17 09:00 04/22/17 22:04 Ondansetron HCl (Zofran Inj) 4 mg Q6H PRN IVP NAUSEA OR VOMITING 04/19/17 21:15 04/21/17 18:15 Acetaminophen (Tylenol) 650 mg Q6H PRN PO FEVER/PAIN SCALE 1 TO 2 04/19/17 21:15 Acetaminophen/ Hydrocodone Bitart ([place] 5-325 Mg) 1 tab Q4H PRN PO PAIN SCALE 3 TO 5 04/19/17 21:15 Acetaminophen/ Hydrocodone Bitart ([place] 10-325 Mg) 1 tab Q4H PRN PO PAIN SCALE 6 TO 10 04/19/17 21:15 Senna/Docusate Sodium (Meghann-Colace) 1 tab BID PO 04/20/17 09:00 04/22/17 22:03 Magnesium Hydroxide (Milk Of Magnesia Liq) 30 ml Q12H PRN PO Mild constipation 04/19/17 21:15 Sennosides (Senokot) 17.2 mg Q12H PRN PO Moderate constipation 04/19/17 21:15 Bisacodyl (Dulcolax Supp) 10 mg DAILY PRN RECTAL SEVERE CONSITIPATION 04/19/17 21:15 Lactulose (Lactulose Liq) 30 ml DAILY PRN PO SEVERE CONSITIPATION 04/19/17 21:15 Oseltamivir Phosphate (Tamiflu) 75 mg BID PO 04/19/17 21:45 04/22/17 22:22 Famotidine (Pepcid) 20 mg BID PO 04/20/17 09:00 04/22/17 22:03 Albuterol/ Ipratropium (Duoneb Neb) 1 ampule Q4HR NEB NEB 04/20/17 12:00 04/22/17 21:16 Guaifenesin (Mucinex Er) 600 mg BID PO 04/20/17 21:00 04/22/17 22:03 Insulin Aspart (NovoLOG SUPPLEMENTAL SCALE) 1 ACHS SLIDING SCALE SQ 04/20/17 12:00 04/22/17 22:21 Enoxaparin Sodium (Lovenox Inj) 40 mg Q24H SQ 04/20/17 12:00 04/22/17 12:35 Amlodipine Besylate (Norvasc) 5 mg BID PO 04/20/17 21:00 04/22/17 22:04 Aspirin (Aspirin Chew) 81 mg DAILY CHEW 04/21/17 09:00 04/22/17 10:00 Atorvastatin Calcium (Lipitor) 20 mg HS PO 04/20/17 21:00 04/22/17 22:04 Fenofibrate (Tricor) 145 mg DAILY PO 04/21/17 09:00 04/22/17 10:00 Fluoxetine HCl (PROzac) 20 mg DAILY PO 04/21/17 09:00 04/22/17 10:00 Hydralazine HCl (Apresoline) 50 mg TID PO 04/20/17 13:00 04/22/17 18:00 Hydrochlorothiazide (Hydrodiuril) 25 mg DAILY PO 04/21/17 09:00 04/22/17 10:00 Isosorbide Mononitrate (Imdur) 30 mg DAILY PO 04/21/17 09:00 04/22/17 10:00 Metoprolol Tartrate (Lopressor) 25 mg TID PO 04/20/17 13:00 04/22/17 18:00 Potassium Chloride (KCl) 10 meq DAILY PO 04/21/17 09:00 04/22/17 09:00 Latanoprost (Xalatan 0.005% Opth Soln) 1 drop HS EACH EYE 04/20/17 21:00 04/22/17 22:05 Brimonidine Tartrate (Alphagan 0.2% Opth Soln) 1 drop Q12HR EACH EYE 04/20/17 21:00 04/22/17 22:05 Timolol Maleate (Timoptic 0.5% Opth Soln) 1 drop Q12HR EACH EYE 04/20/17 21:00 04/22/17 22:05 Levofloxacin/ Dextrose 150 ml @ 100 mls/hr Q24H IV 04/22/17 10:00 04/22/17 10:00 Doxycycline Hyclate 100 mg/ Sodium Chloride 100 ml @ 100 mls/hr Q12H IV 04/22/17 21:00 04/22/17 23:52 Miscellaneous Information Patient in critical care unit? Ass... [id number] 04/22/17 22:00 Chlorhexidine Gluconate (Chlorhexidine 2% Cloth) 3 pack DAILY@04 TOPICAL 04/23/17 04:00 04/27/17 04:01 04/23/17 00:07 Chlorhexidine Gluconate (Chlorhexidine 2% Cloth) 3 pack UNSCH PRN TOPICAL HYGIENIC CARE 04/22/17 22:00 04/27/17 21:47 Family History Mother with Hypertension Father with Hypertension Social History Negative for tobacco, alcohol, or illicit drug abuse. She lives alone Physical Exam Vital Signs Vital Signs Date Time Temp Pulse Resp B/P (MAP) Pulse Ox O2 Delivery O2 Flow Rate FiO2 04/22/17 21:21 92 Nasal Cannula 5.00 04/22/17 18:31 98.2 65 16 118/67 (84) 94 04/22/17 12:23 97.5 122 16 98/70 (79) 94 04/22/17 08:40 96.6 130 18 144/106 (119) 92 04/22/17 08:01 92 Nasal Cannula 4.00 04/22/17 04:30 91 04/22/17 04:00 98.1 105 20 149/81 (103) 87 04/22/17 00:00 97.8 103 20 128/68 (88) 92 Physical Exam GENERAL: Well-nourished, well-developed very pleasant lady on 2 L nasal cannula. SKIN: Warm and dry. HEAD: Normocephalic. EYES: No scleral icterus. No injection or drainage. NECK: Supple, trachea midline. No JVD or lymphadenopathy. CARDIOVASCULAR: Regular rate and rhythm without murmurs, gallops, or rubs. RESPIRATORY: Breath sounds equal bilaterally. No accessory muscle use. GASTROINTESTINAL: Abdomen soft, non-tender, nondistended. MUSCULOSKELETAL: No cyanosis, or edema. BACK: Nontender without obvious deformity. NEURO EXAM: GCS:15 Mental Status: The patient is alert and oriented to person, place, and time with normal speech. Cranial Nerves: Visual acuity intact bilaterally. Visual macario normal in all quadrants. Pupils are round, reactive to light. Extraocular movements are intact without ptosis. Hearing is normal bilaterally. Voice is normal. Tongue protrudes midline and moves symmetrically. Reflexes: Biceps, patellar, and Achilles are 2/4 bilaterally. No clonus. Sensation: Sensation is intact bilaterally to pain and light touch. Two-point discrimination is intact. Motor: Good muscle tone. Strength is 5/5 bilaterally. Cerebellar: [id number] and [id number] test normal bilaterally. Laboratory Laboratory Tests Test 04/22/17 09:45 04/22/17 15:25 04/22/17 20:25 Procalcitonin 0.07 Blood Gas Puncture Site RT RADIAL Blood Gas Patient Temperature 98.6 Blood Gas HCO3 31 Blood Gas Base Excess 6.7 Blood Gas Oxygen Saturation 90 Arterial Blood pH 7.42 Arterial Blood Partial Pressure CO2 49 Arterial Blood Partial Pressure O2 58 Arterial Blood Oxygen Content 13.0 Arterial Blood Carboxyhemoglobin 1.8 Arterial Blood Methemoglobin 0.4 Blood Gas Hemoglobin 10.3 Oxygen Delivery Device NASAL CANNULA Blood Gas Liter Flow 3 Nasal Screen MRSA (PCR) MRSA NOT DETECTED Date/Time Source Procedure Growth Status 04/19/17 17:55 Blood Peripheral Aerobic Blood Culture - Preliminary NO GROWTH IN 3 DAYS Resulted 04/19/17 17:55 Blood Peripheral Anaerobic Blood Culture - Preliminary NO GROWTH IN 3 DAYS Resulted 04/19/17 17:50 Nasal Washing Influenza Types A,B Antigen (AUGIE) - Final Positive For Flu A Antigen Complete Result Diagram: 04/20/17 0708 04/21/172009 Septic Shock Reassessment Septic shock perfusion: reassessment completed Assessment and Plan Assessment and Plan Respiratory failure - Influenza A - Pneumonia versus pulmonary edema - Hemodynamically stable, will attempt a gentle diuresis - Tamiflu, doxycycline, Levaquin per ID recommendation - Follow-up cultures and de-escalate - CXR and ABG a.m. Depressions - Prozac Hypokalemia - Electrolyte replacement per ICU protocol Hypertension - Hydralazine, Norvasc on hold - Isosorbide - Hydrochlorothiazide - Metoprolol Glaucoma - Latanoprost - Tomorrow DVT GI prophylaxis - Teds SCDs - Lovenox - Pepcid Critical Care: The total critical care time was 35 minutes. Time to perform other separately billable procedures was not included in the critical care time. Tom Moss MD Apr 22, 2017 23:52
[2017-04-23] VITALS (16 sets, daily range): BP systolic 141–185; BP diastolic 65–84; PULSE 64–83; RESP 12–36; TEMP 98–98.4; O2SAT 91–95
[2017-04-23] MEDS: CHLORHEXIDINE GLUCONATE 2 % 1 PACK (2 CLOTHS)(taper/protocol) TOPICAL SCH (00:07)
[2017-04-23] MEDS ORDERED: POTASSIUM CHLORIDE 10 MEQ CONTROLLED RELEASE TAB PO ONE (01:00)
[2017-04-23] MEDS ORDERED: POTASSIUM PHOSPHATE MONOBASIC 500 MG TAB PO PRN (01:00)
[2017-04-23] MEDS ORDERED: POTASSIUM PHOSPHATE MONOBASIC 500 MG TAB PO/TUBE PRN (01:00)
[2017-04-23] MEDS ORDERED: MAGNESIUM SULFATE INJ 2 GM in SODIUM CHLORIDE 0.9% INJ 96 ML IV PRN (01:00)
[2017-04-23] MEDS ORDERED: POTASSIUM PHOSPHATE INJ 30 MMOL in SODIUM CHLOR 0.9% 250 ML INJ 250 ML IV PRN (01:00)
[2017-04-23] MEDS ORDERED: MAGNESIUM OXIDE 400 MG TAB PO PRN (01:00)
[2017-04-23] MEDS ORDERED: POTASSIUM CHLOR 40 MEQ PREMIX 100 ML IV PRN ×2 (01:00)
[2017-04-23] MEDS ORDERED: MAGNESIUM SULFATE INJ 4 GM in SODIUM CHLORIDE 0.9% INJ 92 ML IV PRN (01:00)
[2017-04-23] MEDS ORDERED: POTASSIUM CHLOR 20 MEQ PREMIX 100 ML IV PRN (01:00)
[2017-04-23] MEDS ORDERED: POTASSIUM CHLORIDE 25 MEQ EFFERVESCENT TAB PO PRN (01:00)
[2017-04-23] MEDS ORDERED: SODIUM PHOSPHATE INJ 30 MMOL in SODIUM CHLOR 0.9% 250 ML INJ 240 ML IV PRN (01:00)
[2017-04-23 02:03] LABS: AUTOMATED NEUTROPHIL # 5.6 TH/MM3 (1.8-7.7); BASOPHIL % 0.2 % (0.0-2.0); HEMATOCRIT 32.3 % (35.0-46.0); HEMOGLOBIN 11.1 GM/DL (11.6-15.3); LYMPH % 9.6 % (9.0-44.0); LYMPHOCYTE # 0.6 TH/MM3 (1.0-4.8); MEAN CELL VOLUME 93.5 FL (80.0-100.0); MEAN CORPUSCULAR HEMOGLOBIN 32.2 PG (27.0-34.0); MEAN CORPUSCULAR HGB CONC 34.4 % (32.0-36.0); MEAN PLATELET VOLUME 7.8 FL (7.0-11.0); MONO % 6.5 % (0.0-8.0); MONOCYTE # 0.4 TH/MM3 (0-0.9); NEUT % 83.7 % (16.0-70.0); PLATELET COUNT 221 TH/MM3 (150-450); RED BLOOD COUNT 3.46 MIL/MM3 (4.00-5.30); RED CELL DISTRIBUTION WIDTH 13.6 % (11.6-17.2); WHITE BLOOD COUNT 6.7 TH/MM3 (4.0-11.0)
[2017-04-23 02:31] LABS: ALBUMIN 2.4 GM/DL (3.4-5.0); BICARBONATE 31.5 MEQ/L (21.0-32.0); CALCIUM 7.3 MG/DL (8.5-10.1); CALCIUM-PROTEIN CORRECTED 7.6 MG/DL (8.5-10.1); CREATININE 0.39 MG/DL (0.50-1.00); MAGNESIUM 1.9 MG/DL (1.5-2.5); PHOSPHORUS 1.3 MG/DL (2.5-4.9); TOTAL BILIRUBIN ADULT 0.5 MG/DL (0.2-1.0); TOTAL PROTEIN 6.6 GM/DL (6.4-8.2)
[2017-04-23] MEDS: FUROSEMIDE 20 MG/2 ML VIAL IV PUSH SCH ×3 (02:43→13:00)
[2017-04-23] MEDS: POTASSIUM CHLOR 20 MEQ PREMIX 100 ML IV PRN ×2 (02:44→05:07)
--- NOTE | 2017-04-23 04:28 | RADRPT ---
EXAM DATE/TIME: 04/23/2017 03:10 [facility] COMPARISON: CHEST PA & LAT, April 22, 2017, 10:07. INDICATIONS : Short of breath. MEDICAL HISTORY : Hiatal hernia. Hypertension SURGICAL HISTORY : None. ENCOUNTER: Subsequent ACUITY: 1 week PAIN SCORE: 0/10 LOCATION: Bilateral chest TECH NOTE: MOHAN MOSQUEDA MR#[id number] :45 Exam date/desc:April 23, 2017CHEST SINGLE AP FINDINGS: Increasing consolidation in the left lower lobe and scattered subtle infiltrates in the right lung ar e again seen. Cardiomegaly and degenerative changes of the spine. CONCLUSION: Patchy consolidation on the left is increased. Claude Bailon MD on April 23, 2017 at 4:25 Board Certified Radiologist. This report was verified electronically.
[2017-04-23] MEDS: RESP: ALBUTEROL 2.5 MG/IPRATROPIUM 0.5 MG NEB (SCH) NEB ×7 (04:53→23:48)
[2017-04-23] MEDS ORDERED: PHARMACY ORDERED LAB ONE (05:45)
[2017-04-23] MEDS: INSULIN ASPART SUPPLEMENTAL SCALE SQ SCH ×4 (07:29→22:04)
[2017-04-23] MEDS: guaiFENesin E.R. 600 MG TAB PO SCH ×2 (08:27→21:29)
[2017-04-23] MEDS: hydrALAZINE HCL 50 MG TAB PO SCH ×3 (08:27→17:12)
[2017-04-23] MEDS: ISOSORBIDE MONONITRATE 30 MG CR TAB (IMDUR) PO SCH (08:27)
[2017-04-23] MEDS: FLUoxetine HCL 20 MG CAP PO SCH (08:28)
[2017-04-23] MEDS: FENOFIBRATE 145 MG TAB PO SCH (08:28)
[2017-04-23] MEDS: METOPROLOL TARTRATE 25 MG TAB PO SCH ×3 (08:29→17:12)
[2017-04-23] MEDS: amLODIPine BESYLATE 5 MG TAB PO SCH ×2 (08:29→21:29)
[2017-04-23] MEDS: HYDROCHLOROTHIAZIDE 25 MG TAB PO SCH (08:29)
[2017-04-23] MEDS: FAMOTIDINE 20 MG TAB PO SCH ×2 (08:29→21:29)
[2017-04-23] MEDS: ASPIRIN 81 MG CHEW TAB CHEW SCH (08:30)
[2017-04-23] MEDS: DOCUSATE SODIUM 50 MG/SENNA 8.6 MG TAB PO SCH ×2 (08:30→21:00)
[2017-04-23] MEDS: POTASSIUM CHLORIDE 10 MEQ CAP PO SCH (09:15)
[2017-04-23] MEDS: SODIUM CHLORIDE 0.9% FLUSH 10 ML FLUSH IV FLUSH SCH ×2 (09:16→21:29)
[2017-04-23] MEDS: LEVOFLOXACIN 750 MG PREMIX INJ 150 ML IV SCH (09:17)
[2017-04-23] MEDS: BRIMONIDINE TARTRATE 0.2% OPHT SOLN 5 ML BTL EACH EYE SCH ×2 (09:19→21:30)
[2017-04-23] MEDS: TIMOLOL MALEATE 0.5% OPHT SOLN 5 ML BTL EACH EYE SCH ×2 (09:19→21:30)
[2017-04-23] MEDS: OSELTAMIVIR PHOSPHATE 75 MG CAP PO SCH ×2 (10:42→21:29)
[2017-04-23] MEDS: DOXYCYCLINE INJ 100 MG in SODIUM CHLORIDE 0.9% INJ 100 ML IV SCH ×2 (10:43→22:05)
--- NOTE | 2017-04-23 11:09 | HHI.CCPN ---
Subjective Remarks/Hospital Course 71-year-old female with a history of hypertension type 2 diabetes mellitus, presents to the hospital with one week history of nausea, vomiting, malaise, body aches, Diarrhea. She was seen by her primary care physician and was diagnosed with influenza without confirmation by laboratory tests. She was given Tamiflu however her symptoms were not improving. She did feel more weak, was unable to eat or drink, however denied abdominal pain or chest pain. In the emergency department she tested positive for influenza A, was admitted to medicine, but her symptoms are worsening with development of shortness of breath. Her x-ray shows bilateral infiltrates questioning pulmonary edema. She has been seen by infectious disease in consultation and now is transferred to [facility] for possible early ARDS. SUBJ 04/23 Patient remains on 5 L nasal cannula with oxygen saturation 90%, mild to moderate distress. There is significant perioral central cyanosis. Bilateral extensive expiratory wheezing heard. Chest x-ray today shows worsening left- sided infiltrates. On doxycycline and Tamiflu and Levaquin per ID. I have added IV Solu-Medrol and budesonide inhaled Objective Vital Signs Date Time Temp Pulse Resp B/P (MAP) Pulse Ox O2 Delivery O2 Flow Rate FiO2 04/23/17 09:28 94 Nasal Cannula 5.00 04/23/17 06:00 83 04/23/17 04:00 98.1 20 159/72 (101) Result Diagram: 04/23/17 0153 04/23/17 0153 Other Results Laboratory Tests Test 04/22/17 15:25 Blood Gas Puncture Site RT RADIAL Blood Gas Patient Temperature 98.6 Blood Gas HCO3 31 mmol/L (22-26) Blood Gas Base Excess 6.7 mmol/L (-2-2) Blood Gas Oxygen Saturation 90 % (90-100) Arterial Blood pH 7.42 (7.380-7.420) Arterial Blood Partial Pressure CO2 49 mmHG (38-42) Arterial Blood Partial Pressure O2 58 mmHG (61-120) Arterial Blood Oxygen Content 13.0 Vol % (12.0-20.0) Arterial Blood Carboxyhemoglobin 1.8 % (0-4) Arterial Blood Methemoglobin 0.4 % (0-2) Blood Gas Hemoglobin 10.3 G/DL (12.0-16.0) Oxygen Delivery Device NASAL CANNULA Blood Gas Liter Flow 3 L/M Objective Remarks GENERAL: Well-nourished, well-developed very pleasant lady on 5 L nasal cannula. Significant perioral cyanosis SKIN: Warm and dry. HEAD: Normocephalic. EYES: No scleral icterus. No injection or drainage. NECK: Supple, trachea midline. No JVD or lymphadenopathy. CARDIOVASCULAR: Regular rate and rhythm without murmurs, gallops, or rubs. RESPIRATORY: Breath sounds equal bilaterally. Mild accessory muscle use. Bilateral expiratory wheezes heard GASTROINTESTINAL: Abdomen soft, non-tender, nondistended. MUSCULOSKELETAL: No cyanosis, or edema. BACK: Nontender without obvious deformity. NEURO EXAM: GCS:15. The patient is alert and oriented to person, place, and time with normal speech. Motor Strength is 5/5 bilaterally. A/P Assessment and Plan Hypoxemic Respiratory failure Bronchial asthma extubation - Influenza A with secondary pneumonia versus ARDS - Tamiflu, doxycycline, Levaquin per ID recommendation - Continue IV fluid at 100 mL/h - Start IV Solu-Medrol 60 mg every 12, budesonide INH q12 - Follow-up cultures and de-escalate ABX accordingly - CXR in am. ABG as needed Depressions - Continue Prozac Hypokalemia, hypophosphatemia - Electrolyte replacement per ICU protocol Hypertension - Hydralazine, Norvasc on hold - Isosorbide - Hydrochlorothiazide - Metoprolol Glaucoma - Latanoprost - Tomorrow DVT GI prophylaxis - Teds SCDs - Lovenox - Pepcid Critical Care: The total critical care time was 35 minutes. Time to perform other separately billable procedures was not included in the critical care time. Patient is critically ill with hypoxemic respiratory failure, and developing ARDS from influenza. Continue broad-spectrum antibiotics. Patient is at risk for decompensation and mechanical ventilator support need Wally Dennis MD Apr 23, 2017 11:09
--- NOTE | 2017-04-23 11:41 | HHI.IDPN ---
Subjective Subjective Remarks chart was reviewed Pt is 71 yo F with PNA and flu A She is on [place] O2 minimal non productive cough no diarrhea or abd pain no fever, chills On Tamifu x 1 week Antibiotics tamiflu doxy levaquin Allergies: Coded Allergies: metronidazole (Unverified Allergy, Severe, Itching, 04/19/17) morphine (Verified Allergy, Severe, Itching, jittery, 04/19/17) penicillin G (Unverified Allergy, Severe, HIVES, 04/19/17) Objective . Vital Signs Date Time Temp Pulse Resp B/P (MAP) Pulse Ox O2 Delivery O2 Flow Rate FiO2 04/23/17 09:28 94 Nasal Cannula 5.00 04/23/17 06:00 83 04/23/17 04:53 94 Nasal Cannula 5.00 04/23/17 04:00 98.1 72 20 159/72 (101) 91 04/23/17 04:00 72 04/23/17 02:00 64 04/23/17 00:00 68 04/23/17 00:00 98.3 68 36 144/65 (91) 91 04/22/17 21:21 92 Nasal Cannula 5.00 04/22/17 21:15 68 16 93 04/22/17 20:45 98.3 68 20 153/66 (95) 91 04/22/17 18:31 98.2 65 16 118/67 (84) 94 04/22/17 12:23 97.5 122 16 98/70 (79) 94 . Laboratory Tests Test 04/23/17 01:53 White Blood Count 6.7 TH/MM3 Red Blood Count 3.46 MIL/MM3 Hemoglobin 11.1 GM/DL Hematocrit 32.3 % Mean Corpuscular Volume 93.5 FL Mean Corpuscular Hemoglobin 32.2 PG Mean Corpuscular Hemoglobin Concent 34.4 % Red Cell Distribution Width 13.6 % Platelet Count 221 TH/MM3 Mean Platelet Volume 7.8 FL Neutrophils (%) (Auto) 83.7 % Lymphocytes (%) (Auto) 9.6 % Monocytes (%) (Auto) 6.5 % Eosinophils (%) (Auto) 0.0 % Basophils (%) (Auto) 0.2 % Neutrophils # (Auto) 5.6 TH/MM3 Lymphocytes # (Auto) 0.6 TH/MM3 Monocytes # (Auto) 0.4 TH/MM3 Eosinophils # (Auto) 0.0 TH/MM3 Basophils # (Auto) 0.0 TH/MM3 CBC Comment DIFF FINAL Differential Comment Laboratory Tests Test 04/21/17 20:10 04/22/17 09:45 04/23/17 01:53 Creatinine 0.50 MG/DL 0.39 MG/DL Estimat Glomerular Filtration Rate 122 ML/MIN 162 ML/MIN Procalcitonin 0.07 ng/mL Blood Urea Nitrogen 10 MG/DL Random Glucose 131 MG/DL Total Protein 6.6 GM/DL Albumin 2.4 GM/DL Calcium Level 7.3 MG/DL Phosphorus Level 1.3 MG/DL Magnesium Level 1.9 MG/DL Alkaline Phosphatase 47 U/L Aspartate Amino Transf (AST/SGOT) 49 U/L Alanine Aminotransferase (ALT/SGPT) 58 U/L Total Bilirubin 0.5 MG/DL Sodium Level 135 MEQ/L Potassium Level 3.3 MEQ/L Chloride Level 98 MEQ/L Carbon Dioxide Level 31.5 MEQ/L Anion Gap 6 MEQ/L Protein Corrected Calcium 7.6 MG/DL Imaging Last Impressions Chest X-Ray 04/23/17 0600 Signed Impressions: Service Date/Time: Sunday, April 23, 2017 03:10 - CONCLUSION: Patchy consolidation on the left is increased. Claude Bailon MD Abdomen/Pelvis CT 04/19/17 1901 Signed Impressions: Service Date/Time: Wednesday, April 19, 2017 19:48 - CONCLUSION: No acute findings. Mild diverticula throughout the colon without radiographic evidence of diverticulitis. Osmar Leger MD Physical Exam GENERAL: NAD SKIN: No rashes, ecchymoses or lesions. Cool and dry. HEAD: Atraumatic. Normocephalic. No temporal or scalp tenderness. EYES: Pupils equal round and reactive. Extraocular motions intact. No scleral icterus. No injection or drainage. ENT: Nose without bleeding, purulent drainage or septal hematoma. Throat without erythema, tonsillar hypertrophy or exudate. Uvula midline. Airway patent. NECK: Trachea midline. No JVD or lymphadenopathy. Supple, nontender, no meningeal signs. CARDIOVASCULAR: Regular rate and rhythm without murmurs, gallops, or rubs. RESPIRATORY: Breath sounds decreased bilaterally with a wheeze posteriorly GASTROINTESTINAL: Abdomen soft, non-tender, nondistended. No hepato-splenomegaly , or palpable masses. No guarding. MUSCULOSKELETAL: Extremities without clubbing, cyanosis, or edema. No joint tenderness, effusion, or edema noted. No calf tenderness. Negative Homans sign bilaterally. NEUROLOGICAL: Awake and alert. Cranial nerves II through XII intact. Motor and sensory grossly within normal limits. Five out of 5 muscle strength in all muscle groups. Normal speech. PSYCH: calm , pleasant Assessment & Plan Remarks (1) Influenza (2) Pneumonia (3) Hypoxia (4) Asthma 5. HIgh grade PCN allergy - not sure she took Keflex, think she might be but not positive cont Tamiflu x 10 days total Doxy 100 mg IV q 12hrs x 5 days Levofloxacin 750 mg IV daily x 5 days Abby Herrera MD Apr 23, 2017 11:41
[2017-04-23] MEDS: ENOXAPARIN SODIUM 40 MG/0.4 ML SYRINGE SQ SCH (12:00)
[2017-04-23] MEDS: methylPREDNISolone SOD SUCC 125 MG/2 ML VIAL IV PUSH SCH (13:00)
[2017-04-23] MEDS: SODIUM CHLOR 0.9% 1000 ML INJ 1,000 ML IV SCH ×2 (14:11→23:26)
[2017-04-23] MEDS: RESP: BUDESONIDE 0.5 MG/2 ML NEB NEB SCH (19:48)
[2017-04-23] MEDS: ATORVASTATIN 20 MG TAB PO SCH (21:29)
[2017-04-23] MEDS: LATANOPROST 0.005% OPHT SOLN 2.5 ML BTL EACH EYE SCH (21:30)
[2017-04-24] VITALS (13 sets, daily range): BP systolic 119–187; BP diastolic 56–92; PULSE 65–85; RESP 15–32; TEMP 96.4–98.8; O2SAT 90–95
[2017-04-24] MEDS: methylPREDNISolone SOD SUCC 125 MG/2 ML VIAL IV PUSH SCH ×2 (03:06→12:13)
[2017-04-24] MEDS: CHLORHEXIDINE GLUCONATE 2 % 1 PACK (2 CLOTHS)(taper/protocol) TOPICAL SCH (03:06)
[2017-04-24] MEDS: RESP: ALBUTEROL 2.5 MG/IPRATROPIUM 0.5 MG NEB (SCH) NEB ×2 (04:11→08:48)
--- NOTE | 2017-04-24 07:20 | RADRPT ---
EXAM DATE/TIME: 04/24/2017 06:43 [facility] COMPARISON: CHEST SINGLE AP, April 23, 2017, 3:10. INDICATIONS : Short of breath. MEDICAL HISTORY : Hiatal hernia. Hypertension SURGICAL HISTORY : None. ENCOUNTER: Subsequent ACUITY: 1 week PAIN SCORE: Non-responsive. LOCATION: Bilateral chest FINDINGS: A single view of the chest demonstrates patchy bilateral infiltrates worsening left lung base. No vis ible pneumothorax. No significant pleural effusion. The cardiomediastinal contours are unremarkable. Osseous structures are intact. CONCLUSION: Diffuse interstitial lung disease with questionable superimposed infiltrate left lung base. Brian Lopez MD on April 24, 2017 at 7:19 Board Certified Radiologist. This report was verified electronically.
[2017-04-24] MEDS: INSULIN ASPART SUPPLEMENTAL SCALE SQ SCH ×4 (08:00→21:00)
[2017-04-24] MEDS: BRIMONIDINE TARTRATE 0.2% OPHT SOLN 5 ML BTL EACH EYE SCH ×2 (08:20→21:31)
[2017-04-24] MEDS: TIMOLOL MALEATE 0.5% OPHT SOLN 5 ML BTL EACH EYE SCH ×2 (08:20→21:31)
[2017-04-24] MEDS: ASPIRIN 81 MG CHEW TAB CHEW SCH (08:20)
[2017-04-24] MEDS: ISOSORBIDE MONONITRATE 30 MG CR TAB (IMDUR) PO SCH (08:21)
[2017-04-24] MEDS: HYDROCHLOROTHIAZIDE 25 MG TAB PO SCH (08:21)
[2017-04-24] MEDS: SODIUM CHLORIDE 0.9% FLUSH 10 ML FLUSH IV FLUSH SCH ×2 (08:21→21:00)
[2017-04-24] MEDS: hydrALAZINE HCL 50 MG TAB PO SCH ×3 (08:21→17:48)
[2017-04-24] MEDS: METOPROLOL TARTRATE 25 MG TAB PO SCH ×3 (08:22→17:48)
[2017-04-24] MEDS: POTASSIUM CHLORIDE 10 MEQ CAP PO SCH (08:22)
[2017-04-24] MEDS: FAMOTIDINE 20 MG TAB PO SCH ×2 (08:22→21:33)
[2017-04-24] MEDS: guaiFENesin E.R. 600 MG TAB PO SCH ×2 (08:22→21:33)
[2017-04-24] MEDS: FLUoxetine HCL 20 MG CAP PO SCH (08:22)
[2017-04-24] MEDS: OSELTAMIVIR PHOSPHATE 75 MG CAP PO SCH ×2 (08:22→22:50)
[2017-04-24] MEDS: FENOFIBRATE 145 MG TAB PO SCH (08:22)
[2017-04-24] MEDS: amLODIPine BESYLATE 5 MG TAB PO SCH ×2 (08:22→21:33)
[2017-04-24] MEDS: RESP: BUDESONIDE 0.5 MG/2 ML NEB NEB SCH (08:48)
[2017-04-24] MEDS: DOCUSATE SODIUM 50 MG/SENNA 8.6 MG TAB PO SCH ×2 (09:00→21:00)
[2017-04-24] MEDS: DOXYCYCLINE INJ 100 MG in SODIUM CHLORIDE 0.9% INJ 100 ML IV SCH ×2 (09:08→22:50)
[2017-04-24] MEDS: SODIUM CHLOR 0.9% 1000 ML INJ 1,000 ML IV SCH ×2 (10:51→21:35)
[2017-04-24] MEDS: LEVOFLOXACIN 750 MG PREMIX INJ 150 ML IV SCH (10:51)
--- NOTE | 2017-04-24 11:32 | HHI.IDPN ---
Subjective Subjective Remarks doing better still on [place] O2 no fever Antibiotics tamiflu doxy levaquin Allergies: Coded Allergies: metronidazole (Unverified Allergy, Severe, Itching, 04/19/17) morphine (Verified Allergy, Severe, Itching, jittery, 04/19/17) penicillin G (Unverified Allergy, Severe, HIVES, 04/19/17) Objective . Vital Signs Date Time Temp Pulse Resp B/P (MAP) Pulse Ox O2 Delivery O2 Flow Rate FiO2 04/24/17 10:00 65 32 135/60 (85) 93 04/24/17 10:00 65 04/24/17 09:00 66 15 134/61 (85) 94 04/24/17 08:50 93 Nasal Cannula 5.00 04/24/17 08:00 79 04/24/17 08:00 98.8 76 18 187/81 (116) 95 04/24/17 07:00 77 16 182/76 (111) 91 04/24/17 06:00 70 04/24/17 04:13 93 Nasal Cannula 5.00 04/24/17 04:00 98.3 68 20 163/69 (100) 93 04/24/17 04:00 68 04/24/17 02:00 69 04/24/17 00:00 68 04/24/17 00:00 98.6 69 17 161/71 (101) 93 04/23/17 23:48 94 Nasal Cannula 5.00 04/23/17 22:00 75 04/23/17 20:00 69 04/23/17 20:00 98.0 69 12 152/66 (94) 95 04/23/17 19:50 94 Nasal Cannula 4.00 04/23/17 18:00 71 04/23/17 16:00 69 04/23/17 16:00 98.4 69 25 160/70 (100) 93 04/23/17 14:00 69 04/23/17 12:00 66 04/23/17 12:00 98.0 66 18 141/65 (90) 92 . Laboratory Tests Test 04/23/17 01:53 White Blood Count 6.7 TH/MM3 Red Blood Count 3.46 MIL/MM3 Hemoglobin 11.1 GM/DL Hematocrit 32.3 % Mean Corpuscular Volume 93.5 FL Mean Corpuscular Hemoglobin 32.2 PG Mean Corpuscular Hemoglobin Concent 34.4 % Red Cell Distribution Width 13.6 % Platelet Count 221 TH/MM3 Mean Platelet Volume 7.8 FL Neutrophils (%) (Auto) 83.7 % Lymphocytes (%) (Auto) 9.6 % Monocytes (%) (Auto) 6.5 % Eosinophils (%) (Auto) 0.0 % Basophils (%) (Auto) 0.2 % Neutrophils # (Auto) 5.6 TH/MM3 Lymphocytes # (Auto) 0.6 TH/MM3 Monocytes # (Auto) 0.4 TH/MM3 Eosinophils # (Auto) 0.0 TH/MM3 Basophils # (Auto) 0.0 TH/MM3 CBC Comment DIFF FINAL Differential Comment Laboratory Tests Test 04/23/17 01:53 04/23/17 12:00 Blood Urea Nitrogen 10 MG/DL Creatinine 0.39 MG/DL Random Glucose 131 MG/DL Total Protein 6.6 GM/DL Albumin 2.4 GM/DL Calcium Level 7.3 MG/DL Phosphorus Level 1.3 MG/DL Magnesium Level 1.9 MG/DL Alkaline Phosphatase 47 U/L Aspartate Amino Transf (AST/SGOT) 49 U/L Alanine Aminotransferase (ALT/SGPT) 58 U/L Total Bilirubin 0.5 MG/DL Sodium Level 135 MEQ/L Potassium Level 3.3 MEQ/L 3.4 MEQ/L Chloride Level 98 MEQ/L Carbon Dioxide Level 31.5 MEQ/L Anion Gap 6 MEQ/L Estimat Glomerular Filtration Rate 162 ML/MIN Protein Corrected Calcium 7.6 MG/DL Imaging Last Impressions Chest X-Ray 04/24/17 0000 Signed Impressions: Service Date/Time: April 06:43 - CONCLUSION: Diffuse interstitial lung disease with questionable superimposed infiltrate left lung base. Brian Lopez MD Abdomen/Pelvis CT 04/19/17 1901 Signed Impressions: Service Date/Time: Wednesday, April 19, 2017 19:48 - CONCLUSION: No acute findings. Mild diverticula throughout the colon without radiographic evidence of diverticulitis. Osmar Leger MD Physical Exam GENERAL: NAD SKIN: No rashes, ecchymoses or lesions. Cool and dry. HEAD: Atraumatic. Normocephalic. No temporal or scalp tenderness. EYES: Pupils equal round and reactive. Extraocular motions intact. No scleral icterus. No injection or drainage. ENT: Nose without bleeding, purulent drainage or septal hematoma. Throat without erythema, tonsillar hypertrophy or exudate. Uvula midline. Airway patent. NECK: Trachea midline. No JVD or lymphadenopathy. Supple, nontender, no meningeal signs. CARDIOVASCULAR: Regular rate and rhythm without murmurs, gallops, or rubs. RESPIRATORY: Breath sounds decreased bilaterally with a wheeze posteriorly GASTROINTESTINAL: Abdomen soft, non-tender, nondistended. No hepato-splenomegaly , or palpable masses. No guarding. MUSCULOSKELETAL: Extremities without clubbing, cyanosis, or edema. No joint tenderness, effusion, or edema noted. No calf tenderness. Negative Homans sign bilaterally. NEUROLOGICAL: Awake and alert. Cranial nerves II through XII intact. Motor and sensory grossly within normal limits. Five out of 5 muscle strength in all muscle groups. Normal speech. PSYCH: calm , pleasant Assessment & Plan Remarks (1) Influenza (2) Pneumonia (3) Hypoxia (4) Asthma 5. HIgh grade PCN allergy - not sure she took Keflex, think she might be but not positive cont Tamiflu x 10 days total cont Doxy 100 mg IV q 12hrs x 5 days will dc Levofloxacin - doubt superimposed bactereal infection Abby Herrera MD Apr 24, 2017 11:32
[2017-04-24] MEDS: ENOXAPARIN SODIUM 40 MG/0.4 ML SYRINGE SQ SCH (12:12)
--- NOTE | 2017-04-24 12:28 | HHI.PR ---
Subjective Remarks 71-year-old female with a history of hypertension type 2 diabetes mellitus, presents to the hospital with one week history of nausea, vomiting, malaise, body aches, Diarrhea. She was seen by her primary care physician and was diagnosed with influenza without confirmation by laboratory tests. She was given Tamiflu however her symptoms were not improving. She did feel more weak, was unable to eat or drink, however denied abdominal pain or chest pain. In the emergency department she tested positive for influenza A, was admitted to medicine, but her symptoms are worsening with development of shortness of breath. Her x-ray shows bilateral infiltrates questioning pulmonary edema. She has been seen by infectious disease in consultation and now is transferred to [facility] for possible early ARDS. SUBJ 04/23 Patient remains on 5 L nasal cannula with oxygen saturation 90%, mild to moderate distress. There is significant perioral central cyanosis. Bilateral extensive expiratory wheezing heard. Chest x-ray today shows worsening left- sided infiltrates. On doxycycline and Tamiflu and Levaquin per ID. I have added IV Solu-Medrol and budesonide inhaled 2-15 TRANSFERRED BACK TO OUR SERVICE STILL ON 4L BY NC IMPROVED BREATHING TODAY LESS WHEEZING MUCINEX AND DUONEBS ON DOXY AND TAMIFLU NOW Objective Vitals Vital Signs Date Time Temp Pulse Resp B/P (MAP) Pulse Ox O2 Delivery O2 Flow Rate FiO2 04/24/17 10:00 65 32 135/60 (85) 93 04/24/17 10:00 65 04/24/17 09:00 66 15 134/61 (85) 94 04/24/17 08:50 93 Nasal Cannula 5.00 04/24/17 08:00 79 04/24/17 08:00 98.8 76 18 187/81 (116) 95 04/24/17 07:00 77 16 182/76 (111) 91 04/24/17 06:00 70 04/24/17 04:13 93 Nasal Cannula 5.00 04/24/17 04:00 98.3 68 20 163/69 (100) 93 04/24/17 04:00 68 04/24/17 02:00 69 04/24/17 00:00 68 04/24/17 00:00 98.6 69 17 161/71 (101) 93 04/23/17 23:48 94 Nasal Cannula 5.00 04/23/17 22:00 75 2/14/18 20:00 69 04/23/17 20:00 98.0 69 12 152/66 (94) 95 04/23/17 19:50 94 Nasal Cannula 4.00 04/23/17 18:00 71 04/23/17 16:00 69 04/23/17 16:00 98.4 69 25 160/70 (100) 93 04/23/17 14:00 69 I/O 04/23/17 04/23/17 04/23/17 04/24/17 04/24/17 04/24/17 07:00 15:00 23:00 07:00 15:00 23:00 Intake Total 1250 ml 780 ml 100 ml 751 ml Balance 1250 ml 780 ml 100 ml 751 ml Intake Oral 480 ml 100 ml IV Total 1250 ml 300 ml 751 ml # Voids 6 7 # Bowel Movements 0 0 Result Diagram: 04/23/17 0153 04/23/17 1200 Other Results Laboratory Tests Test 04/21/17 20:10 04/22/17 09:45 04/22/17 15:25 04/22/17 20:25 Creatinine 0.50 MG/DL Estimat Glomerular Filtration Rate 122 ML/MIN Procalcitonin 0.07 ng/mL Blood Gas Puncture Site RT RADIAL Blood Gas Patient Temperature 98.6 Blood Gas HCO3 31 mmol/L Blood Gas Base Excess 6.7 mmol/L Blood Gas Oxygen Saturation 90 % Arterial Blood pH 7.42 Arterial Blood Partial Pressure CO2 49 mmHG Arterial Blood Partial Pressure O2 58 mmHG Arterial Blood Oxygen Content 13.0 Vol % Arterial Blood Carboxyhemoglobin 1.8 % Arterial Blood Methemoglobin 0.4 % Blood Gas Hemoglobin 10.3 G/DL Oxygen Delivery Device NASAL CANNULA Blood Gas Liter Flow 3 L/M Nasal Screen MRSA (PCR) MRSA NOT DETECTED Test 04/23/17 01:53 04/23/17 08:01 04/23/17 12:00 White Blood Count 6.7 TH/MM3 Red Blood Count 3.46 MIL/MM3 Hemoglobin 11.1 GM/DL Hematocrit 32.3 % Mean Corpuscular Volume 93.5 FL Mean Corpuscular Hemoglobin 32.2 PG Mean Corpuscular Hemoglobin Concent 34.4 % Red Cell Distribution Width 13.6 % Platelet Count 221 TH/MM3 Mean Platelet Volume 7.8 FL Neutrophils (%) (Auto) 83.7 % Lymphocytes (%) (Auto) 9.6 % Monocytes (%) (Auto) 6.5 % Eosinophils (%) (Auto) 0.0 % Basophils (%) (Auto) 0.2 % Neutrophils # (Auto) 5.6 TH/MM3 Lymphocytes # (Auto) 0.6 TH/MM3 Monocytes # (Auto) 0.4 TH/MM3 Eosinophils # (Auto) 0.0 TH/MM3 Basophils # (Auto) 0.0 TH/MM3 CBC Comment DIFF FINAL Differential Comment Blood Urea Nitrogen 10 MG/DL Creatinine 0.39 MG/DL Random Glucose 131 MG/DL Total Protein 6.6 GM/DL Albumin 2.4 GM/DL Calcium Level 7.3 MG/DL Phosphorus Level 1.3 MG/DL Magnesium Level 1.9 MG/DL Alkaline Phosphatase 47 U/L Aspartate Amino Transf (AST/SGOT) 49 U/L Alanine Aminotransferase (ALT/SGPT) 58 U/L Total Bilirubin 0.5 MG/DL Sodium Level 135 MEQ/L Potassium Level 3.3 MEQ/L 3.4 MEQ/L Chloride Level 98 MEQ/L Carbon Dioxide Level 31.5 MEQ/L Anion Gap 6 MEQ/L Estimat Glomerular Filtration Rate 162 ML/MIN Protein Corrected Calcium 7.6 MG/DL Vancomycin Level Trough 6.0 MCG/ML Imaging Last Impressions Chest X-Ray 04/24/17 0000 Signed Impressions: Service Date/Time: April 06:43 - CONCLUSION: Diffuse interstitial lung disease with questionable superimposed infiltrate left lung base. Brian Lopez MD Abdomen/Pelvis CT 04/19/17 1901 Signed Impressions: Service Date/Time: Wednesday, April 19, 2017 19:48 - CONCLUSION: No acute findings. Mild diverticula throughout the colon without radiographic evidence of diverticulitis. Osmar Leger MD Objective Remarks GENERAL: AWAKE ALERT AND ORIENTED X3 TALKATIVE AND COOPERATIVE SKIN: Warm and dry. HEAD: Atraumatic. Normocephalic. EYES: Pupils equal and round. No scleral icterus. No injection or drainage. EOMI ENT: No nasal bleeding or discharge. Mucous membranes pink and moist. TONGUE IS MIDLINE NECK: Trachea midline. No JVD. SUPPLE CARDIOVASCULAR: Regular rate and rhythm. S1, S2 NO S3 OR S4 RESPIRATORY: No accessory muscle use. Breath sounds equal bilaterally. FEW RHONCHI AND WHEEZES BL GASTROINTESTINAL: Abdomen soft, non-tender, nondistended. Hepatic and splenic margins not palpable. MUSCULOSKELETAL: Extremities without clubbing, cyanosis, or edema. No obvious deformities. NEUROLOGICAL: Awake and alert. No obvious cranial nerve deficits. Motor grossly within normal limits. Five out of 5 muscle strength in the arms and legs. Normal speech. PSYCHIATRIC: Appropriate mood and affect; insight and judgment normal. Medications and IVs Current Medications Sodium Chloride 1,000 ml @ 999 mls/hr BOLUS ONCE IV Last administered on 04/19at 17:59; Start 04/19/17 at 17:45; Stop 04/19/17 at 18:45; Status DC Ondansetron HCl (Zofran Inj) 4 mg ONCE ONCE IV PUSH Last administered on at 17:59; Start 04/19/17 at 17:45; Stop 04/19/17 at 17:46; Status DC Promethazine HCl (Phenergan Inj) 25 mg ONCE ONCE IM Last administered on at 20:26; Start 04/19/17 at 19:15; Stop 04/19/17 at 19:16; Status DC Iohexol (Omnipaque 350 Inj) 85 ml STK-MED ONCE IVCONTRAST Last administered on 04/19/17at 19:58; Start 04/19/17 at 19:58; Stop 04/19/17 at 19:59; Status DC Sodium Chloride 1,000 ml @ 100 mls/hr Q10H IV Last administered on 04/24/17at 10:51; Start 04/19/17 at 21:12 Sodium Chloride (NS Flush) 2 ml UNSCH PRN IV FLUSH FLUSH AFTER USING IV ACCESS ; Start 04/19/17 at 21:15 Sodium Chloride (NS Flush) 2 ml BID IV FLUSH Last administered on 04/24/17at 08: 21; Start 04/20/17 at 09:00 Ondansetron HCl (Zofran Inj) 4 mg Q6H PRN IVP NAUSEA OR VOMITING Last administered on 04/21/17at 18:15; Start 04/19/17 at 21:15 Acetaminophen (Tylenol) 650 mg Q6H PRN PO FEVER/PAIN SCALE 1 TO 2; Start at 21:15 Acetaminophen/ Hydrocodone Bitart ([place] 5-325 Mg) 1 tab Q4H PRN PO PAIN SCALE 3 TO 5; Start 04/19/17 at 21:15 Acetaminophen/ Hydrocodone Bitart ([place] 10-325 Mg) 1 tab Q4H PRN PO PAIN SCALE 6 TO 10; Start 04/19/17 at 21:15 Senna/Docusate Sodium (Meghann-Colace) 1 tab BID PO Last administered on at 22:03; Start 04/20/17 at 09:00 Magnesium Hydroxide (Milk Of Magnesia Liq) 30 ml Q12H PRN PO Mild constipation ; Start 04/19/17 at 21:15 Sennosides (Senokot) 17.2 mg Q12H PRN PO Moderate constipation; Start 04/19/17 at 21:15 Bisacodyl (Dulcolax Supp) 10 mg DAILY PRN RECTAL SEVERE CONSITIPATION; Start at 21:15 Lactulose (Lactulose Liq) 30 ml DAILY PRN PO SEVERE CONSITIPATION; Start at 21:15 Oseltamivir Phosphate (Tamiflu) 75 mg BID PO Last administered on 04/24/17at 08: 22; Start 04/19/17 at 21:45; Stop 04/27/17 at 09:00 Potassium Chloride (KCl) 40 meq ONCE ONCE PO Last administered on 04/19/17at 22 :32; Start 04/19/17 at 21:15; Stop 04/19/17 at 21:38; Status DC Pharmacy Profile Note 0 ml @ 0 mls/hr UNSCH OTHER ; Start 04/19/17 at 21:15; Stop 04/22/17 at 19:10; Status DC Vancomycin HCl 1500 mg/Sodium Chloride 515 ml @ 257.5 mls/ hr ONCE ONCE IV Last administered on 04/19/17at 23:31; Start 04/19/17 at 22:00; Stop 04/19/17 at 23:59; Status DC Miscellaneous Information SPECIFIC LAB TO BE DRAWN:VANCOMYCIN TROUGH DATE TO... ONCE ONCE .XX Last administered on 04/21/17at 11:21; Start 04/21/17 at 10:45; Stop 04/21/17 at 10:46; Status DC Hydralazine HCl (Apresoline) 50 mg ONCE ONCE PO Last administered on at 03:55; Start 04/20/17 at 03:30; Stop 04/20/17 at 03:31; Status DC Metoprolol Tartrate (Lopressor) 25 mg ONCE ONCE PO Last administered on at 03:55; Start 04/20/17 at 03:30; Stop 04/20/17 at 03:31; Status DC Amlodipine Besylate (Norvasc) 5 mg ONCE ONCE PO Last administered on at 03:55; Start 04/20/17 at 03:30; Stop 04/20/17 at 03:31; Status DC Magnesium Sulfate/ Dextrose 100 ml @ 100 mls/hr Q1H IV Last administered on 01/25at 11:32; Start 04/20/17 at 09:00; Stop 04/20/17 at 10:59; Status DC Potassium Chloride (KCl) 40 meq ONCE ONCE PO Last administered on 04/20/17at 09 :30; Start 04/20/17 at 09:00; Stop 04/20/17 at 09:01; Status DC Potassium Chloride (KCl) 40 meq ONCE ONCE PO Last administered on 04/20/17at 11 :32; Start 04/20/17 at 11:00; Stop 04/20/17 at 11:01; Status DC Famotidine (Pepcid) 20 mg BID PO Last administered on 04/24/17at 08:22; Start at 09:00 Sucralfate (Carafate) 1 gm ACHS PO Last administered on 04/22/17at 10:00; Start 04/20/17 at 12:00; Stop 04/22/17 at 10:48; Status DC Albuterol/ Ipratropium (Duoneb Neb) 1 ampule Q4HR NEB NEB Last administered on 04/24/17at 08:48; Start 04/20/17 at 12:00; Stop 04/24/17 at 11:59; Status DC Guaifenesin (Mucinex Er) 600 mg BID PO Last administered on 04/24/17at 08:22; Start 04/20/17 at 21:00 Insulin Aspart (NovoLOG SUPPLEMENTAL SCALE) 1 ACHS SLIDING SCALE SQ Last administered on 04/24/17at 12:13; Start 04/20/17 at 12:00 Enoxaparin Sodium (Lovenox Inj) 40 mg Q24H SQ Last administered on 04/24/17 12 :12; Start 04/20/17 at 12:00 Amlodipine Besylate (Norvasc) 5 mg BID PO Last administered on 04/24/17 08:22 ; Start 04/20/17 at 21:00 Aspirin (Aspirin Chew) 81 mg DAILY CHEW Last administered on 04/24/17 08:20; Start 04/21/17 at 09:00 Atorvastatin Calcium (Lipitor) 20 mg HS PO Last administered on 04/23/17 21:29 ; Start 04/20/17 at 21:00 Fenofibrate (Tricor) 145 mg DAILY PO Last administered on 04/24/17 08:22; Start 04/21/17 at 09:00 Fluoxetine HCl (PROzac) 20 mg DAILY PO Last administered on 04/24/17 08:22; Start 04/21/17 at 09:00 Hydralazine HCl (Apresoline) 50 mg TID PO Last administered on 04/24/17 12:12 ; Start 04/20/17 at 13:00 Hydrochlorothiazide (Hydrodiuril) 25 mg DAILY PO Last administered on 08:21; Start 04/21/17 at 09:00 Isosorbide Mononitrate (Imdur) 30 mg DAILY PO Last administered on 04/24/17 08 :21; Start 04/21/17 at 09:00 Metoprolol Tartrate (Lopressor) 25 mg TID PO Last administered on 04/24/17 12: 12; Start 04/20/17 at 13:00 Potassium Chloride (KCl) 10 meq DAILY PO Last administered on 04/24/17 08:22; Start 04/21/17 at 09:00 Non-Formulary Medication 1 drop Q12HR EACH EYE ; Start 04/20/17 at 21:00; Stop 04/20/17 at 21:00; Status DC Latanoprost (Xalatan 0.005% Opt Soln) 1 drop HS EACH EYE Last administered on 04/23/17at 21:30; Start 04/20/17 at 21:00 Vancomycin HCl 1500 mg/Sodium Chloride 515 ml @ 257.5 mls/ hr Q12H IV Last administered on 04/20/17at 23:08; Start 04/20/17 at 11:00; Stop 04/21/17 at 14:31 ; Status DC Brimonidine Tartrate (Alphagan 0.2% Opt Soln) 1 drop Q12HR EACH EYE Last administered on 04/24/17at 08:20; Start 04/20/17 at 21:00 Timolol Maleate (Timoptic 0.5% Opth Soln) 1 drop Q12HR EACH EYE Last administered on 04/24/17at 08:20; Start 04/20/17 at 21:00 Vancomycin HCl 1500 mg/Sodium Chloride 515 ml @ 257.5 mls/ hr Q12H IV Last administered on 04/22/17at 05:40; Start 04/21/17 at 18:00; Stop 04/22/17 at 18:42 ; Status DC Alprazolam (Xanax) 0.25 mg ONCE ONCE PO Last administered on 04/21/17at 21:17; Start 04/21/17 at 21:00; Stop 04/21/17 at 21:01; Status DC Hydroxyzine Pamoate (Vistaril) 50 mg ONCE ONCE PO Last administered on at 09:59; Start 04/22/17 at 09:15; Stop 04/22/17 at 09:17; Status DC Levofloxacin/ Dextrose 150 ml @ 100 mls/hr Q24H IV Last administered on at 10:51; Start 04/22/17 at 10:00; Stop 04/24/17 at 11:33; Status DC Miscellaneous Information SPECIFIC LAB TO BE DRAWN:VANCO TROUGH DATE TO... ONCE ONCE .XX ; Start 04/23/17 at 05:45; Stop 04/23/17 at 05:45; Status DC Methylprednisolone Sodium Succinate (SoluMEDROL INJ) 125 mg ONCE ONCE IV PUSH Last administered on 04/22/17at 16:12; Start 04/22/17 at 16:00; Stop 04/22/17 at 16:01; Status DC Doxycycline Hyclate 100 mg/ Sodium Chloride 100 ml @ 100 mls/hr Q12H IV Last administered on 04/24/17at 09:08; Start 04/22/17 at 21:00 Miscellaneous Information Patient in critical care unit? Ass... Q361D .XX ; Start 04/22/17 at 22:00 Chlorhexidine Gluconate (Chlorhexidine 2% Cloth) 3 pack DAILY@04 TOPICAL Last administered on 04/24/17at 03:06; Start 04/23/17 at 04:00; Stop 04/27/17 at 04:01 Chlorhexidine Gluconate (Chlorhexidine 2% Cloth) 3 pack UNSCH PRN TOPICAL HYGIENIC CARE; Start 04/22/17 at 22:00; Stop 04/27/17 at 21:47 Furosemide (Lasix Inj) 20 mg Q6H IV PUSH Last administered on 04/23/17at 13:00; Start 04/23/17 at 01:00; Stop 04/23/17 at 13:01; Status DC Potassium Chloride 100 ml @ 50 mls/hr Q2H PRN IV For Potassium 2.8 - 3.2 mEq/L ; Start 04/23/17 at 01:00 Potassium Chloride 100 ml @ 50 mls/hr Q2H PRN IV For Potassium 2.8 - 3.2 mEq/L ; Start 04/23/17 at 01:00 Potassium Bicarb/ Potassium Chloride (K-Lyte Cl Eff) 50 meq UNSCH PRN PO For Potassium 3.3 - 3.5 mEq/L; Start 04/23/17 at 01:00 Potassium Chloride 100 ml @ 25 mls/hr UNSCH PRN IV For Potassium 3.3 - 3.5 mEq /L; Start 04/23/17 at 01:00 Potassium Chloride 100 ml @ 50 mls/hr Q2H PRN IV For Potassium 3.3 - 3.5 mEq/L ; Start 04/23/17 at 01:00 Magnesium Sulfate 4 gm/Sodium Chloride 100 ml @ 50 mls/hr UNSCH PRN IV For Magnesium 0.9 - 1.1 mg/dL; Start 04/23/17 at 01:00 Magnesium Oxide (Mag-Ox) 800 mg UNSCH PRN PO For Magnesium 1.2 - 1.6 mg/dL; Start 04/23/17 at 01:00 Magnesium Sulfate 2 gm/Sodium Chloride 100 ml @ 50 mls/hr UNSCH PRN IV For Magnesium 1.2 - 1.6 mg/dL; Start 04/23/17 at 01:00 Potassium Phosphate (K-Phos) 2,000 mg Q4H PRN PO For Phosphorus < 2.5 mg/dL; Start 04/23/17 at 01:00 Sodium Phosphate 30 mmol/Sodium Chloride 250 ml @ 42 mls/hr UNSCH PRN IV For Phosphorus < 2.5 mg/dL; Start 04/23/17 at 01:00 Potassium Phosphate (K-Phos) 2,000 mg UNSCH PRN PO/TUBE SEE LABEL COMMENTS; Start 04/23/17 at 01:00 Potassium Phosphate 30 mmol/ Sodium Chloride 260 ml @ 42 mls/hr UNSCH PRN IV SEE LABEL COMMENTS; Start 04/23/17 at 01:00 Potassium Chloride (KCl) 30 meq ONCE ONCE PO Last administered on 04/23/17at 02 :43; Start 04/23/17 at 01:00; Stop 04/23/17 at 01:01; Status DC Methylprednisolone Sodium Succinate (SoluMEDROL INJ) 60 mg Q12H IV PUSH Last administered on 04/24/17at 12:13; Start 04/23/17 at 13:00 Budesonide (Pulmicort Respule Neb) 0.5 mg Q12HR NEB NEB Last administered on at 08:48; Start 04/23/17 at 11:15 A/P Assessment and Plan Hypoxemic Respiratory failure Bronchial asthma extubation - Influenza A with secondary pneumonia versus ARDS - Tamiflu, doxycycline, per ID recommendation - Continue IV fluid at 100 mL/h- WILL HEPLOCK - Start IV Solu-Medrol 60 mg every 12, budesonide INH q12 - Follow-up cultures and de-escalate ABX accordingly - CXR in am. ABG as needed Depressions - Continue Prozac Hypokalemia, hypophosphatemia - Electrolyte replacement per ICU protocol Hypertension - Hydralazine, Norvasc on hold - Isosorbide - Hydrochlorothiazide - Metoprolol Glaucoma - Latanoprost - Tomorrow DVT GI prophylaxis - Teds SCDs - Lovenox - Pepcid IMPROVED TRANSFERRED TO OUR SERVICE - STILL ON STEROIDS DOXY AND TAMIFLU INCREASE ACTIVITY DW RN AND PT Cornelius Cohen DO Apr 24, 2017 12:28
[2017-04-24] MEDS ORDERED: RESP: ALBUTEROL 2.5 MG/IPRATROPIUM 0.5 MG NEB (PRN) NEB (12:30)
[2017-04-24] MEDS: LIPASE/PROTEASE/AMYLASE (6,000/19,000/30,000) CAP PO SCH ×2 (13:30→17:48)
[2017-04-24] MEDS: LATANOPROST 0.005% OPHT SOLN 2.5 ML BTL EACH EYE SCH (21:31)
[2017-04-24] MEDS: ATORVASTATIN 20 MG TAB PO SCH (21:32)
[2017-04-25] VITALS (9 sets, daily range): BP systolic 182–196; BP diastolic 79–93; PULSE 65–84; RESP 18–20; TEMP 96.1–97.9; O2SAT 92–96
[2017-04-25] MEDS: methylPREDNISolone SOD SUCC 125 MG/2 ML VIAL IV PUSH SCH (00:56)
[2017-04-25] MEDS: CHLORHEXIDINE GLUCONATE 2 % 1 PACK (2 CLOTHS)(taper/protocol) TOPICAL SCH ×2 (00:57→19:30)
[2017-04-25] MEDS ORDERED: cloNIDine HCL 0.1 MG TAB PO ONE (03:00)
[2017-04-25] MEDS: RESP: BUDESONIDE 0.5 MG/2 ML NEB NEB SCH ×2 (08:00→20:07)
[2017-04-25] MEDS: FENOFIBRATE 145 MG TAB PO SCH (08:12)
[2017-04-25] MEDS: FLUoxetine HCL 20 MG CAP PO SCH (08:12)
[2017-04-25] MEDS: amLODIPine BESYLATE 5 MG TAB PO SCH ×2 (08:12→20:44)
[2017-04-25] MEDS: OSELTAMIVIR PHOSPHATE 75 MG CAP PO SCH ×2 (08:12→20:44)
[2017-04-25] MEDS: ISOSORBIDE MONONITRATE 30 MG CR TAB (IMDUR) PO SCH (08:12)
[2017-04-25] MEDS: hydrALAZINE HCL 50 MG TAB PO SCH ×3 (08:13→18:02)
[2017-04-25] MEDS: guaiFENesin E.R. 600 MG TAB PO SCH ×2 (08:13→20:44)
[2017-04-25] MEDS: HYDROCHLOROTHIAZIDE 25 MG TAB PO SCH (08:13)
[2017-04-25] MEDS: DOCUSATE SODIUM 50 MG/SENNA 8.6 MG TAB PO SCH ×2 (08:13→20:51)
[2017-04-25] MEDS: POTASSIUM CHLORIDE 10 MEQ CAP PO SCH (08:13)
[2017-04-25] MEDS: FAMOTIDINE 20 MG TAB PO SCH ×2 (08:13→20:44)
[2017-04-25] MEDS: ASPIRIN 81 MG CHEW TAB CHEW SCH (08:14)
[2017-04-25] MEDS: METOPROLOL TARTRATE 25 MG TAB PO SCH ×3 (08:14→18:03)
[2017-04-25] MEDS: DOXYCYCLINE INJ 100 MG in SODIUM CHLORIDE 0.9% INJ 100 ML IV SCH ×2 (08:14→20:44)
[2017-04-25] MEDS: LIPASE/PROTEASE/AMYLASE (6,000/19,000/30,000) CAP PO SCH ×3 (08:31→18:02)
[2017-04-25] MEDS: INSULIN ASPART SUPPLEMENTAL SCALE SQ SCH ×4 (08:32→20:53)
[2017-04-25] MEDS: SODIUM CHLOR 0.9% 1000 ML INJ 1,000 ML IV SCH (08:35)
--- NOTE | 2017-04-25 10:28 | HHI.PR ---
Subjective Remarks The patient was sitting up in a chair. She said that her breathing was getting better. She was looking forward to going home soon. She says her blood pressure is always high secondary to renal artery stenosis. Discussed with nursing. Objective Vitals Vital Signs Date Time Temp Pulse Resp B/P (MAP) Pulse Ox O2 Delivery O2 Flow Rate FiO2 04/25/17 08:00 97.9 82 20 190/93 (125) 92 04/25/17 04:00 96.1 82 20 187/86 (119) 93 04/25/17 02:00 80 183/83 (116) 04/25/17 00:35 94 Nasal Cannula 2.00 04/25/17 00:00 96.4 84 20 190/90 (123) 93 04/24/17 21:00 Nasal Cannula 4.00 04/24/17 20:46 96.4 85 20 157/92 (113) 90 04/24/17 16:00 97.9 70 15 119/56 (77) 95 04/24/17 16:00 70 04/24/17 13:00 94 Nasal Cannula 2.00 Humidified 04/24/17 12:00 98.0 66 20 158/82 (107) 95 04/24/17 12:00 66 I/O 04/24/17 04/24/17 04/24/17 04/25/17 04/25/17 04/25/17 07:00 15:00 23:00 07:00 15:00 23:00 Intake Total 100 ml 1001 ml 1518 ml 340 ml Balance 100 ml 1001 ml 1518 ml 340 ml Intake Oral 100 ml 944 ml 240 ml IV Total 1001 ml 574 ml 100 ml # Voids 7 6 12 # Bowel Movements 0 1 2 Result Diagram: 04/23/17 0153 04/23/17 1200 Imaging Last Impressions Chest X-Ray 04/24/17 0000 Signed Impressions: Service Date/Time: April 06:43 - CONCLUSION: Diffuse interstitial lung disease with questionable superimposed infiltrate left lung base. Brian Lopez MD Abdomen/Pelvis CT 04/19/17 1901 Signed Impressions: Service Date/Time: Wednesday, April 19, 2017 19:48 - CONCLUSION: No acute findings. Mild diverticula throughout the colon without radiographic evidence of diverticulitis. Osmar Leger MD Objective Remarks GENERAL: Well-nourished, well-developed, in no apparent distress. SKIN: Warm and dry. HEAD: Normocephalic. EYES: No scleral icterus. No injection or drainage. NECK: Supple, trachea midline. No JVD or lymphadenopathy. CARDIOVASCULAR: Regular rate and rhythm without murmurs, gallops, or rubs. RESPIRATORY: Breath sounds equal bilaterally. Mild accessory muscle use. Bilateral expiratory wheezes heard. GASTROINTESTINAL: Abdomen soft, non-tender, nondistended. MUSCULOSKELETAL: No cyanosis, or edema. BACK: Nontender without obvious deformity. NEURO: The patient is alert and oriented to person, place, and time with normal speech. Motor Strength is 5/5 bilaterally. PSYCH: Mood and affect appropriate. Medications and IVs Current Medications Medications (Trade) Dose Ordered Sig/Di Route Start Time Stop Time Status Last Admin (NS Flush) 2 ml UNSCH PRN IV FLUSH 04/19/17 21:15 (NS Flush) 2 ml BID IV FLUSH 04/20/17 09:00 04/24/17 08:21 (Zofran Inj) 4 mg Q6H PRN IVP 04/19/17 21:15 04/21/17 18:15 (Tylenol) 650 mg Q6H PRN PO 04/19/17 21:15 ([place] 5-325 Mg) 1 tab Q4H PRN PO 04/19/17 21:15 ([place] 10-325 Mg) 1 tab Q4H PRN PO 04/19/17 21:15 (Meghann-Colace) 1 tab BID PO 04/20/17 09:00 04/22/17 22:03 (Milk Of Magnesia Liq) 30 ml Q12H PRN PO 04/19/17 21:15 (Senokot) 17.2 mg Q12H PRN PO 04/19/17 21:15 (Dulcolax Supp) 10 mg DAILY PRN RECTAL 04/19/17 21:15 (Lactulose Liq) 30 ml DAILY PRN PO 04/19/17 21:15 (Tamiflu) 75 mg BID PO 04/19/17 21:45 04/27/17 09:00 04/25/17 08:12 (Pepcid) 20 mg BID PO 04/20/17 09:00 04/25/17 08:13 (Mucinex Er) 600 mg BID PO 04/20/17 21:00 04/25/17 08:13 (NovoLOG SUPPLEMENTAL SCALE) 1 ACHS SLIDING SCALE SQ 04/20/17 12:00 04/25/17 08:32 (Lovenox Inj) 40 mg Q24H SQ 04/20/17 12:00 04/24/17 12:12 (Norvasc) 5 mg BID PO 04/20/17 21:00 04/25/17 08:12 (Aspirin Chew) 81 mg DAILY CHEW 04/21/17 09:00 04/25/17 08:14 (Lipitor) 20 mg HS PO 04/20/17 21:00 04/24/17 21:32 (Tricor) 145 mg DAILY PO 04/21/17 09:00 04/25/17 08:12 (PROzac) 20 mg DAILY PO 04/21/17 09:00 04/25/17 08:12 (Apresoline) 50 mg TID PO 04/20/17 13:00 04/25/17 08:13 (Hydrodiuril) 25 mg DAILY PO 04/21/17 09:00 04/25/17 08:13 (Imdur) 30 mg DAILY PO 04/21/17 09:00 04/25/17 08:12 (Lopressor) 25 mg TID PO 04/20/17 13:00 04/25/17 08:14 (KCl) 10 meq DAILY PO 04/21/17 09:00 04/25/17 08:13 (Xalatan 0.005% Opth Soln) 1 drop HS EACH EYE 04/20/17 21:00 04/24/17 21:31 (Alphagan 0.2% Opth Soln) 1 drop Q12HR EACH EYE 04/20/17 21:00 04/24/17 21:31 (Timoptic 0.5% Opth Soln) 1 drop Q12HR EACH EYE 04/20/17 21:00 04/24/17 21:31 Doxycycline Hyclate 100 mg/ Sodium Chloride 100 ml @ 100 mls/hr Q12H IV 04/22/17 21:00 04/25/17 08:14 Miscellaneous Information Patient in critical care unit? Ass... Q361D .XX 04/22/17 22:00 (Chlorhexidine 2% Cloth) 3 pack DAILY@04 TOPICAL 04/23/17 04:00 04/27/17 04:01 04/24/17 03:06 (Chlorhexidine 2% Cloth) 3 pack UNSCH PRN TOPICAL 04/22/17 22:00 04/27/17 21:47 Potassium Chloride 100 ml @ 50 mls/hr Q2H PRN IV 04/23/17 01:00 Potassium Chloride 100 ml @ 50 mls/hr Q2H PRN IV 04/23/17 01:00 (K-Lyte Cl Eff) 50 meq UNSCH PRN PO 04/23/17 01:00 Potassium Chloride 100 ml @ 25 mls/hr UNSCH PRN IV 04/23/17 01:00 Potassium Chloride 100 ml @ 50 mls/hr Q2H PRN IV 04/23/17 01:00 Magnesium Sulfate 4 gm/Sodium Chloride 100 ml @ 50 mls/hr UNSCH PRN IV 04/23/17 01:00 (Mag-Ox) 800 mg UNSCH PRN PO 04/23/17 01:00 Magnesium Sulfate 2 gm/Sodium Chloride 100 ml @ 50 mls/hr UNSCH PRN IV 04/23/17 01:00 (K-Phos) 2,000 mg Q4H PRN PO 04/23/17 01:00 Sodium Phosphate 30 mmol/Sodium Chloride 250 ml @ 42 mls/hr UNSCH PRN IV 04/23/17 01:00 (K-Phos) 2,000 mg UNSCH PRN PO/TUBE 04/23/17 01:00 Potassium Phosphate 30 mmol/ Sodium Chloride 260 ml @ 42 mls/hr UNSCH PRN IV 04/23/17 01:00 (Pulmicort Respule Neb) 0.5 mg Q12HR NEB NEB 04/23/17 11:15 04/24/17 08:48 (Duoneb Neb) 1 ampule Q4HR NEB PRN NEB 04/24/17 12:30 04/25/17 08:36 (Premarin) 1.25 mg DAILY PO 04/25/17 09:00 (Creon 6-19-30) 1 cap TIDPC PO 04/24/17 13:30 04/25/17 08:31 (Vasotec Inj) 2.5 mg Q6H PRN IV PUSH 04/25/17 11:00 (Deltasone) 20 mg BID PO 04/25/17 21:00 A/P Assessment and Plan Hypoxemic Respiratory failure/ Bronchial asthma exacerbation Influenza A with secondary pneumonia versus ARDS. ID consult appreciated. - Tamiflu, doxycycline per ID recommendation. - d/c IV fluids. - IV Solu-Medrol being transitioned to prednisone. - continue budesonide INH q12. - Follow-up cultures. - oxygen and nebs as needed. - home oxygen walk test. - PT. Hypertension Poorly controlled. History of ROSE. - continue hydralazine, Norvasc, isosorbide, Hydrochlorothiazide and metoprolol. - Vasotec as needed. - wean off steroids. - d/c IVFs. - outpt follow-up. Electrolyte abnormalities The patient has hypokalemia and hypophosphatemia. - Replete and monitor. PPx: Rene Barney DO Apr 25, 2017 10:28
[2017-04-25] MEDS: ENOXAPARIN SODIUM 40 MG/0.4 ML SYRINGE SQ SCH (12:59)
[2017-04-25] MEDS: TIMOLOL MALEATE 0.5% OPHT SOLN 5 ML BTL EACH EYE SCH ×2 (13:05→20:43)
[2017-04-25] MEDS: SODIUM CHLORIDE 0.9% FLUSH 10 ML FLUSH IV FLUSH SCH ×2 (13:05→20:50)
[2017-04-25] MEDS: BRIMONIDINE TARTRATE 0.2% OPHT SOLN 5 ML BTL EACH EYE SCH ×2 (13:05→20:43)
[2017-04-25 13:41] LABS: AUTOMATED NEUTROPHIL # 7.9 TH/MM3 (1.8-7.7); BASOPHIL % 0.4 % (0.0-2.0); HEMATOCRIT 37.9 % (35.0-46.0); LYMPH % 10.2 % (9.0-44.0); LYMPHOCYTE # 1.1 TH/MM3 (1.0-4.8); MEAN CELL VOLUME 93.5 FL (80.0-100.0); MEAN CORPUSCULAR HGB CONC 34.3 % (32.0-36.0); MEAN PLATELET VOLUME 7.7 FL (7.0-11.0); MONO % 16.5 % (0.0-8.0); MONOCYTE # 1.8 TH/MM3 (0-0.9); NEUT % 72.9 % (16.0-70.0); PLATELET COUNT 378 TH/MM3 (150-450); RED BLOOD COUNT 4.06 MIL/MM3 (4.00-5.30); RED CELL DISTRIBUTION WIDTH 13.5 % (11.6-17.2); WHITE BLOOD COUNT 10.9 TH/MM3 (4.0-11.0)
[2017-04-25 14:35] LABS: ALKALINE PHOSPHATASE 51 U/L (45-117); ALT (GPT) 51 U/L (10-53); AST (GOT) 27 U/L (15-37); BICARBONATE 32.3 MEQ/L (21.0-32.0); BLOOD UREA NITROGEN 18 MG/DL (7-18); CALCIUM 8.6 MG/DL (8.5-10.1); CHLORIDE 97 MEQ/L (98-107); CREATININE 0.61 MG/DL (0.50-1.00); FREE T4 1.44 NG/DL (0.76-1.46); GLOMERULAR FILTRATION RATE 96 ML/MIN (>89); GLUCOSE,RANDOM 141 MG/DL (74-106); MAGNESIUM 1.9 MG/DL (1.5-2.5); PHOSPHORUS 2.2 MG/DL (2.5-4.9); SODIUM (NA) 137 MEQ/L (136-145); TOTAL BILIRUBIN ADULT 0.6 MG/DL (0.2-1.0); TOTAL PROTEIN 7.2 GM/DL (6.4-8.2)
[2017-04-25] MEDS ORDERED: SODIUM PHOSPHATE INJ 15 MMOL in SODIUM CHLORIDE 0.9% INJ 150 ML IV ONE (15:00)
[2017-04-25] MEDS: ESTROGENS CONJUGATED 1.25 MG TAB PO SCH (15:52)
[2017-04-25] MEDS: POTASSIUM CHLORIDE 20 MEQ CONTROLLED RELEASE TAB PO SCH ×3 (15:53→22:59)
[2017-04-25] MEDS: ENALAPRILAT 2.5 MG/2 ML VIAL IV PUSH PRN (16:32)
[2017-04-25] MEDS ORDERED: OXYGENDME NAS.CANULA (17:30)
[2017-04-25 19:20] LABS: HEMOGLOBIN A1C 6.7 % (4.3-6.0)
[2017-04-25] MEDS: LATANOPROST 0.005% OPHT SOLN 2.5 ML BTL EACH EYE SCH (20:43)
[2017-04-25] MEDS: ATORVASTATIN 20 MG TAB PO SCH (20:45)
[2017-04-25] MEDS: predniSONE 20 MG TAB PO SCH (20:50)
[2017-04-26] VITALS: BP 187/84; PULSE 69; RESP 18; TEMP 96.5; O2SAT 90
[2017-04-26] MEDS: METOPROLOL TARTRATE 25 MG TAB PO SCH ×2 (06:03→13:46)
[2017-04-26] MEDS: ENALAPRILAT 2.5 MG/2 ML VIAL IV PUSH PRN (06:11)
[2017-04-26 08:00] VITALS: BP 163/88; PULSE 112; RESP 17; TEMP 96.4; O2SAT 92
[2017-04-26] MEDS: INSULIN ASPART SUPPLEMENTAL SCALE SQ SCH ×2 (08:00→13:47)
[2017-04-26 08:19] LABS: BICARBONATE 30.5 MEQ/L (21.0-32.0); CALCIUM 8.5 MG/DL (8.5-10.1); CREATININE 0.5 MG/DL (0.50-1.00); PHOSPHORUS 2.7 MG/DL (2.5-4.9)
[2017-04-26] MEDS: FLUoxetine HCL 20 MG CAP PO SCH (08:39)
[2017-04-26] MEDS: guaiFENesin E.R. 600 MG TAB PO SCH (08:39)
[2017-04-26] MEDS: POTASSIUM CHLORIDE 10 MEQ CAP PO SCH (08:40)
[2017-04-26] MEDS: hydrALAZINE HCL 50 MG TAB PO SCH ×2 (08:40→13:46)
[2017-04-26] MEDS: amLODIPine BESYLATE 5 MG TAB PO SCH (08:40)
[2017-04-26] MEDS: FENOFIBRATE 145 MG TAB PO SCH (08:40)
[2017-04-26] MEDS: OSELTAMIVIR PHOSPHATE 75 MG CAP PO SCH (08:40)
[2017-04-26] MEDS: ASPIRIN 81 MG CHEW TAB CHEW SCH (08:41)
[2017-04-26] MEDS: ESTROGENS CONJUGATED 1.25 MG TAB PO SCH (08:41)
[2017-04-26] MEDS: ISOSORBIDE MONONITRATE 30 MG CR TAB (IMDUR) PO SCH (08:41)
[2017-04-26] MEDS: HYDROCHLOROTHIAZIDE 25 MG TAB PO SCH (08:41)
[2017-04-26] MEDS: FAMOTIDINE 20 MG TAB PO SCH (08:41)
[2017-04-26] MEDS: LIPASE/PROTEASE/AMYLASE (6,000/19,000/30,000) CAP PO SCH ×2 (08:41→13:30)
[2017-04-26] MEDS: predniSONE 20 MG TAB PO SCH (08:42)
[2017-04-26] MEDS: DOCUSATE SODIUM 50 MG/SENNA 8.6 MG TAB PO SCH (09:00)
[2017-04-26] MEDS: SODIUM CHLORIDE 0.9% FLUSH 10 ML FLUSH IV FLUSH SCH (09:00)
[2017-04-26] MEDS: BRIMONIDINE TARTRATE 0.2% OPHT SOLN 5 ML BTL EACH EYE SCH (09:00)
[2017-04-26] MEDS: RESP: BUDESONIDE 0.5 MG/2 ML NEB NEB SCH (09:04)
[2017-04-26 09:12] VITALS: O2SAT 93
[2017-04-26] MEDS ORDERED: LORazepam 1 MG TAB PO PRN (09:30)
[2017-04-26] MEDS: DOXYCYCLINE INJ 100 MG in SODIUM CHLORIDE 0.9% INJ 100 ML IV SCH (10:07)
[2017-04-26] MEDS ORDERED: POTASSIUM CHLORIDE 25 MEQ EFFERVESCENT TAB PO ONE (10:45)
--- NOTE | 2017-04-26 10:58 | HHI.DCPOC ---
Discharge Care Plan Diagnosis: (1) Tachycardia (2) Asthma (3) Influenza (4) Pneumonia (5) Hypoxia (6) Physical deconditioning (7) Hypokalemia (8) HTN (hypertension) Goals to Promote Your Health * To prevent worsening of your condition and complications * To maintain your health at the optimal level Directions to Meet Your Goals Take your medications as prescribed Follow your dietary instruction Follow activity as directed Keep your appointments as scheduled Take your immunizations and boosters as scheduled If your symptoms worsen call your PCP, if no PCP go to Urgent Care Center or Emergency Room Smoking is Dangerous to Your Health. Avoid second hand smoke Call the 24-hour hour crisis hotline for domestic abuse at Rene Villalobos DO Apr 26, 2017 10:58
--- NOTE | 2017-04-26 11:00 | HHI.FF ---
Face to Face Verification Diagnosis: (1) Physical deconditioning (2) HTN (hypertension) (3) Asthma (4) Influenza (5) Tachycardia (6) Hypokalemia (7) Pneumonia (8) Hypoxia Physical Therapy Order: Evaluate and Treat, Improve ambulation, Strength and gait training Home Health Nursing Order: Medical education Signs/symptoms of disease process Oxygen administration education Medication education-adverse effect Nursing assessment with vital signs I have seen patient Neela Latham on 04/26/17. My clinical findings support the need for the requested home health care services because: Ltd mobility - disease progression Patient has SOB Deconditioned w/ increased weakness Limited ability to care for self Infection w/ risk of complications I certify that my clinical findings support that this patient is homebound because: Hx COPD- exertion dyspnea/weakness Unsteady gait/balance Unsafe to leave home unassisted Rene Villalobos DO Apr 26, 2017 11:00
[2017-04-26] MEDS ORDERED: DOXY100C PO (11:06)
[2017-04-26] MEDS ORDERED: VENTAER INH (11:06)
[2017-04-26] MEDS ORDERED: OSEL75 PO (11:06)
[2017-04-26] MEDS ORDERED: HYDR-3133 PO (11:07)
[2017-04-26 11:17] VITALS: PULSE 118
--- NOTE | 2017-04-26 11:19 | RADRPT ---
EXAM DATE/TIME: 04/26/2017 11:04 [facility] COMPARISON: CHEST SINGLE AP, April 24, 2017, 6:43. INDICATIONS : Irregular heart rate MEDICAL HISTORY : Hiatal hernia. Hypertension SURGICAL HISTORY : None. ENCOUNTER: Initial ACUITY: 1 day PAIN SCORE: 0/10 LOCATION: Bilateral chest FINDINGS: A single view of the chest demonstrates the lungs to be symmetrically aerated without evidence of mas s, infiltrate or effusion. The previously noted bilateral pulmonary infiltrates have essentially reso lved. No evidence of pneumothorax. The cardiomediastinal contours are unremarkable. Osseous structur es are intact. CONCLUSION: 1. No new or acute pulmonary infiltrates. Caio Jacobson MD on April 26, 2017 at 11:17 Board Certified Radiologist. This report was verified electronically.
--- NOTE | 2017-04-26 11:54 | HHI.DS ---
Discharge Summary Admission Date Apr 19, 2017 at 21:06 Discharge Date: Apr 26, 2017 Admitting Diagnosis influenza/severe dehydration/hyponatremia (1) Physical deconditioning ICD Code: R53.81 - Other malaise Status: Acute (2) HTN (hypertension) ICD Code: I10 - Essential (primary) hypertension Diagnosis: Principal Status: Chronic (3) Asthma ICD Code: J45.909 - Unspecified asthma, uncomplicated Diagnosis: Principal Status: Acute (4) Influenza ICD Code: J11.1 - Influenza due to unidentified influenza virus with other respiratory manifestations Diagnosis: Principal Status: Acute (5) Tachycardia ICD Code: R00.0 - Tachycardia, unspecified Diagnosis: Principal (6) Hypokalemia ICD Code: E87.6 - Hypokalemia Diagnosis: Principal Status: Acute (7) Pneumonia ICD Code: J18.9 - Pneumonia, unspecified organism Diagnosis: Principal (8) Hypoxia ICD Code: R09.02 - Hypoxemia Diagnosis: Principal Status: Acute Procedures None Brief History - From Admission This is a pleasant 71 y/o Female with Hypertension, DM II, who came to ER with one week history of nausea, vomit, malaise, body aches, Diarrhea, seen by her Primary Care Physician, with diagnosis of Influenza without laboratory confirmation was given Tamiflu, Not improving symptomatology felt more weak, not able to eat or drink, denied abdominal pain, chest pain, No sick contacts, seen in her bedroom as we know she has OA, Asthma Skin Cancer history, Hyperlipidemia, DM II, Hypertension, Depression and Glaucoma, at this time improving, now no Nausea or vomit but she has Diarrhea, states she has IBS, has Hypokalemia and her Hypomagnesemia was not corrected was recommended for correction at this time. CBC/BMP: 04/25/17 1234 04/26/17 0633 Significant Findings Laboratory Tests Test 04/23/17 12:00 04/25/17 12:34 04/26/17 06:33 Potassium Level 3.4 MEQ/L (3.5-5.1) 2.9 MEQ/L (3.5-5.1) 3.4 MEQ/L (3.5-5.1) Neutrophils (%) (Auto) 72.9 % (16.0-70.0) Monocytes (%) (Auto) 16.5 % (0.0-8.0) Neutrophils # (Auto) 7.9 TH/MM3 (1.8-7.7) Monocytes # (Auto) 1.8 TH/MM3 (0-0.9) Random Glucose 141 MG/DL (74-106) 160 MG/DL (74-106) Albumin 3.0 GM/DL (3.4-5.0) Phosphorus Level 2.2 MG/DL (2.5-4.9) Chloride Level 97 MEQ/L (98-107) Carbon Dioxide Level 32.3 MEQ/L (21.0-32.0) Hemoglobin A1c 6.7 % (4.3-6.0) Imaging Last Impressions Chest X-Ray 04/26/17 0000 Signed Impressions: Service Date/Time: Wednesday, April 26, 2017 11:04 - CONCLUSION: 1. No new or acute pulmonary infiltrates. Caio Jacobson MD Abdomen/Pelvis CT 04/19/17 1901 Signed Impressions: Service Date/Time: Wednesday, April 19, 2017 19:48 - CONCLUSION: No acute findings. Mild diverticula throughout the colon without radiographic evidence of diverticulitis. Osmar Leger MD PE at Discharge GENERAL: Well-nourished, well-developed, in no apparent distress. SKIN: Warm and dry. HEAD: Normocephalic. EYES: No scleral icterus. No injection or drainage. NECK: Supple, trachea midline. No JVD or lymphadenopathy. CARDIOVASCULAR: Regular rate and rhythm without murmurs, gallops, or rubs. RESPIRATORY: Breath sounds equal bilaterally. Mild accessory muscle use. Bilateral expiratory wheezes heard. GASTROINTESTINAL: Abdomen soft, non-tender, nondistended. MUSCULOSKELETAL: No cyanosis, or edema. BACK: Nontender without obvious deformity. NEURO: The patient is alert and oriented to person, place, and time with normal speech. Motor Strength is 5/5 bilaterally. PSYCH: Mood and affect appropriate. Pt update on day of discharge The patient was sitting up in bed. She said that she felt better and wanted to go home. She requested a repeat chest x-ray. Discussed with her family at the bedside. Discussed with nursing and case management. Hospital Course Hypoxemic Respiratory failure/ Bronchial asthma exacerbation The pt was found to be influenza A positive. ID was consulted. She was started on Tamiflu, Levaquin and doxycycline. She was started on steroids which have been discontinued. She was continued on budesonide INH q12. She received oxygen and nebs as needed. She required home oxygen per walk test. Case management was consulted and home oxygen was arranged. She worked with PT. She will complete a course of Tamiflu and doxycycline. She will have albuterol as needed. She will follow up with pulmonology. Hypertension/ tachycardia She has a history of renal artery stenosis. She was continued on hydralazine, Norvasc, isosorbide, hydrochlorothiazide and metoprolol. She received Vasotec as needed. She had a bout of tachycardia which the pt follows up with her clinician oncology for. Her heart rate normalized. We weaned off steroids and discontinued IVFs. She will have outpt follow-up with cardiology. Electrolyte abnormalities The patient had hypokalemia and hypophosphatemia. We repleted her electrolytes. She will resume her home potassium regimen. She will follow up with her PCP. Pt Condition on Discharge: Stable Discharge Disposition: Disch w/ Home Health Serv Discharge Time: > 30 minutes Discharge Instructions DIET: Follow Instructions for: As Tolerated, No Restrictions Activities you can perform: Weight Bearing as Nicki Follow up Referrals: Cardiology - [address] Tobar PCP Follow-up - 1 Week Pulmonology - 1 Week New Medications: Albuterol 18 GM Inh (Ventolin Hfa 18 GM Inh) 90 Mcg/Act Aer 2 PUFF INH Q4-6H PRN for SHORTNESS OF BREATH, #1 INHALER 0 Refills Doxycycline Hyclate (Doxycycline Hyclate) 100 Mg Cap 100 MG PO BID for Infection for 2 Days, #4 CAP 0 Refills Hydroxyzine HCl (Hydroxyzine HCl) 25 Mg Tab 25 MG PO QID PRN for ANXIETY, #20 TAB 0 Refills Oxygen (O2) (Oxygen (O2)) Device LITER HERMAN.CANULA CONTINUOUS for Prevent Hypoxemia, #2 Oxygen Concentrator Portable Gaseous 2 L/min via Nasal Canula Continuous For 99 months Oseltamivir (Tamiflu) 75 Mg Cap 75 MG PO BID for Infection for 2 Days, #4 CAP Continued Medications: Amlodipine (Amlodipine) 5 Mg Tab 5 MG PO BID for Blood Pressure Management, #30 TAB 0 Refills Aspirin (Aspirin Low Dose) 81 Mg Chew 81 MG CHEW DAILY, TAB 0 Refills Atorvastatin (Atorvastatin) 20 Mg Tab 20 MG PO HS for Cholesterol Management, #30 TAB 0 Refills Brimonidine-Timolol Opth Drops (Combigan Opth Drops) 0.2-0.5% Soln 1 DROP EACH EYE Q12HR for Glaucoma, BOTTLE 0 Refills Celecoxib (Celecoxib) 200 Mg Cap 200 MG PO DAILY for Pain Management, CAP 0 Refills Diphenoxylate-Atropine (Lomotil) 2.5-0.025 Mg Tab 1 TAB PO Q6H PRN for DIARRHEA, TAB 0 Refills Estrogens, Conjugated (Premarin) 1.25 Mg Tab 1.25 MG PO DAILY for Estrogen Supplements, #30 TAB 0 Refills Fenofibrate (Fenofibrate) 145 Mg Tab 145 MG PO DAILY, #30 TAB 0 Refills Fluoxetine (Fluoxetine) 20 Mg Tab 20 MG PO DAILY, #30 TAB 0 Refills Hydralazine (Hydralazine) 100 Mg Tab 50 MG PO TID for Blood Pressure Management, TAB 0 Refills Take with meals Hydrochlorothiazide (Hydrochlorothiazide) 25 Mg Tab 25 MG PO DAILY, #30 TAB 0 Refills Hydrocodone-Acetaminophen (Hydrocodone-Acetaminophen) 5-325 mg Tab 1 TAB PO Q6H PRN for PAIN, TAB 0 Refills Hyoscyamine Odt (Hyoscyamine Odt) 0.125 Mg Subl 0.125 MG SL Q6H for Gastrointestinal disorders, TAB.SL 0 Refills Isosorbide Mononitrate ER (Isosorbide Mononitrate ER) 30 Mg Silvio 30 MG PO DAILY for Prevent Chest Pain, #30 TAB 0 Refills Metformin (Metformin) 500 Mg Tab 500 MG PO BIDPC for Blood Sugar Management, #60 TAB 0 Refills Metoprolol Tartrate (Metoprolol Tartrate) 25 Mg Tab 25 MG PO TID, #60 TAB 0 Refills Pancrelipase (Creon) 3,000-9,500-15,000 Units Cap 1 CAP PO TIDPC for Digestive Aid, #90 CAP 0 Refills Potassium Chloride ER (Potassium Chloride ER) 10 Meq Cap 10 MEQ PO DAILY for Electrolyte Replacement, #30 CAP 0 Refills Travoprost Opth Drops (Travatan Z Opth Drops) 0.004 % Soln 1 DROP EACH EYE HS for Glaucoma, #1 BOTTLE 0 Refills Discontinued Medications: Hyoscyamine Odt (Hyoscyamine Odt) 0.125 Mg Subl 0.125 MG SL Q6H, TAB.SL 0 Refills Oseltamivir (Tamiflu) 75 Mg Cap 75 MG PO BID for Mgmt Viral Infection, CAP 0 Refills Rene Villalobos DO Apr 26, 2017 11:54
[2017-04-26 12:00] VITALS: BP 172/79; PULSE 68; RESP 17; TEMP 96.1; O2SAT 92
[2017-04-26] MEDS: ENOXAPARIN SODIUM 40 MG/0.4 ML SYRINGE SQ SCH (13:46)
[2017-04-26] MEDS: TIMOLOL MALEATE 0.5% OPHT SOLN 5 ML BTL EACH EYE SCH (13:48)
--- NOTE | 2017-04-27 15:26 | EKG ---
Date Performed: 04/26/2017 Time Performed: 06:18:18 PTAGE: 72 years EKG: Atrial fibrillation Prolonged corrected QT interval Extensive ST-T changes suggest myocardi al injury/ischemia Abnormal ECG PREVIOUS TRACING : 08/27/2015 11.37 DOCTOR: Obed Herrera Interpretating Date/Time 04/27/2017 15:25:24
== END 2017-04-26 15:05 | disposition home health service (06) | DRG 193 ==
LOC: PHED 16:59 → PHEDA 21:06 → PH3B 23:18 → HIMN 04-22 20:40 → N07B 04-24 19:05
PROVIDERS: ADMIT Hospitalist; ATTEND Hospitalist
DX: J10.1 Influenza due to other identified influenza virus with other respiratory manifestations (principal); J96.01 Acute respiratory failure with hypoxia; E87.1 Hypo-osmolality and hyponatremia; J45.901 Unspecified asthma with (acute) exacerbation; E83.39 Other disorders of phosphorus metabolism; I70.1 Atherosclerosis of renal artery; J10.00 Influenza due to other identified influenza virus with unspecified type of pneumonia; E86.0 Dehydration; E11.9 Type 2 diabetes mellitus without complications; Z79.84 Long term (current) use of oral hypoglycemic drugs; I10 Essential (primary) hypertension; M19.90 Unspecified osteoarthritis, unspecified site; H40.9 Unspecified glaucoma; F32.9 Major depressive disorder, single episode, unspecified; E78.5 Hyperlipidemia, unspecified; E87.6 Hypokalemia; R00.0 Tachycardia, unspecified; F41.9 Anxiety disorder, unspecified; E66.9 Obesity, unspecified; Z68.31 Body mass index [BMI] 31.0-31.9, adult; Z79.82 Long term (current) use of aspirin; Z85.828 Personal history of other malignant neoplasm of skin
CPT/HCPCS: 36600; 71045; 71046; 74177; 76937; 80048; 80053; 80061; 80202; 81001; 82565; 82805; 82948; 83036; 83605; 83690; 83735; 84100; 84132; 84145; 84439; 84443; 85007; 85025; 85027; 87040; 87070; 87205; 87641; 87804; 93005; 94150; 94618; 94640; 94664; 96360; 96372; J1650; J1815; J1940; J1956; J2405; J2550; J2930; J3370; J3475; J3480; J7030; J7040; J7512; J7626; Q9967

== ENCOUNTER → 2017-07-01 | Outpatient (CLI) | payer MEDICARE, BC ==
[~2017-07-01] MED LIST changes: -AMLO5 PO; +AMLO5TAB2 PO; +ASPI81CH6 CHEW; -ASPI81TA45 PO; +ATOR20TA15 PO; +CELE1CAP8 PO; -COZA100T PO; +CREO3000 PO; +DOXY100C PO; +ESTR1.25 PO; +FENO145T2 PO; -FENO50TA PO; +FLUO1TAB3 PO; -FLUO20TA20 PO; -GLUCTAB PO; -HYDR-2768 PO; +HYDR-3133 PO; +HYDR-3516 PO; -HYDR-3533 PO; +HYDR-3801 PO; +HYDR25TA5 PO; -HYDRA50 PO; +HYOS1SUB SL; -ISOS30 PO; +ISOS30TA3 PO; -LEVA500T PO; -LIPI20TA PO; +LOMO2.5T PO; +METF500T PO; +METO25TA3 PO; -METO50TA PO; +OSEL75 PO; +OXYGENDME NAS.CANULA; +POTA10CA PO; -PREM1.25 PO; +VENTAER INH
--- NOTE | 2017-07-02 10:59 | RSPPFT ---
DATE OF PROCEDURE: 07/01/17 COMMENTS: VOLUMES DYNAMIC: FVC and FEV1 moderately reduced. STATIC: TLC normal; FRC mildly increased; RV moderately increased. FLOWS: FEV1% mildly reduced; FEF 25-75 severely reduced. DIFFUSION: Moderately reduced. FLOW VOLUME LOOP: Pattern of variable intrathoracic airways obstruction. IMPRESSION: Moderately severe obstructive ventilatory defect with reduction in diffusion and moderate hyperinflation consistent with emphysema or COPD. There is significant improvement post-bronchodilator suggesting a reactive component.
== END ==
LOC: HRSP 10:23
PROVIDERS: ATTEND Family Medicine
DX: R09.02 Hypoxemia (principal); J98.8 Other specified respiratory disorders
CPT/HCPCS: 94060; 94726; 94729

== ENCOUNTER → 2017-09-04 | Outpatient (CLI) | payer MEDICARE, BC | LOC: HRSP 13:43 | PROVIDERS: ATTEND Internal Medicine | DX: J44.9 Chronic obstructive pulmonary disease, unspecified (principal) | CPT/HCPCS: 94618 ==

== ENCOUNTER 2018-01-30 10:19 | Observation (INO) ==
[2018-01-30 11:19] LABS: Baso # (Auto) 0.1 th/mm3 (0.0-0.2); Baso % (Auto) 0.9 % (0.0-2.0); Eos % (Auto) 0.4 % (0.0-4.0); Hematocrit 35.1 % (35.0-46.0); Hemoglobin 11.8 gm/dL (11.6-15.3); Lymph # (Auto) 1.2 th/mm3 (1.0-4.8); Lymph % (Auto) 12.9 % (9.0-44.0); Mean Corpuscular HGB Conc 33.5 % (32.0-36.0); Mean Corpuscular Hemoglobin 29.2 pg (27.0-34.0); Mean Corpuscular Volume 87.3 fL (80.0-100.0); Mean Platelet Volume 7.9 fL (7.0-11.0); Mono % (Auto) 10.8 % (0.0-8.0); Neut # (Auto) 6.7 th/mm3 (1.8-7.7); Platelet Count 311 th/mm3 (150-450); Red Blood Count 4.02 mil/mm3 (4.00-5.30); Red Cell Distribution Width 13.5 % (11.6-17.2)
--- NOTE | 2018-01-30 11:26 | XR ---
EXAM DATE: 01/30/2018 11:03 AM EST AGE/SEX: 72 years / Female INDICATIONS: Cough, left shoulder pain. CLINICAL DATA: This is the patient's initial encounter. Patient reports that signs and symptoms have been present for 4 - 6 days and indicates a pain score of 4/10. MEDICAL/SURGICAL HISTORY: Hiatal hernia. Hypertension. bronchiolitis None. COMPARISON: [facility] – [place], CHEST SINGLE AP, 04/26/2017. . FINDINGS: Central interstitial prominence with mild bronchial wall thickening is noted. There is no evidence of peripheral consolidating airspace disease. Heart is mildly enlarged. Osseous structures appear intact CONCLUSION: Central interstitial prominence with bronchial wall thickening which may represent bronchitis. Mild cardiomegaly No evidence of peripheral consolidating airspace disease. Electronically signed by: Tray Mena MD 01/30/2018 11:24 AM EST
[2018-01-30 11:50] LABS: Clarity,Urine Clear (Clear); Color,Urine Yellow (Yellw/Straw); Glucose,Urine (UA) Negative (Negative); Leukocyte Esterase,Urine Negative (Negative); Nitrite,Urine Negative (Negative); PH,Urine 6.5 (5.0-8.5); Specific Gravity,Urine 1.015 (1.002-1.035); Urobilinogen,Urine 0.2 mg/dL (Less than 2)
[2018-01-30 11:51] LABS: Alanine Aminotransferase 15 U/L (10-53); Albumin 2.6 g/dL (3.4-5.0); Alkaline Phosphatase 43 U/L (45-117); Anion Gap 10 meq/L (5-15); Aspartate Aminotransferase 20 U/L (15-37); Blood Urea Nitrogen 11 mg/dL (7-18); Calcium 7.6 mg/dL (8.5-10.1); Carbon Dioxide 30.6 meq/L (21.0-32.0); Chloride 89 meq/L (98-107); Creatine Kinase 118 U/L (26-192); Glomerular Filtration Rate 84 mL/min (>89); Glucose,Random 169 mg/dL (74-106); Lipase 106 U/L (73-393); Sodium 130 meq/L (136-145); Total Protein 6.8 g/dL (6.4-8.2)
[2018-01-30 11:51] LABS: Bilirubin,Urine Negative (Negative); Ictotest,Urine Negative (Negative)
[2018-01-30 11:54] LABS: Potassium 2.8 meq/L (3.5-5.1)
[2018-01-30 12:02] LABS: Bacteria,Urine Occasional /hpf; Squamous Epithelial Cell,Urine Greater than 10 /hpf (0-5); WBC,Urine 0-5 /hpf (0-5)
[2018-01-30 12:07] LABS: Activated Partial Thrombo Time 31.9 sec (23.4-31.7); INR 1.2 Ratio; Prothrombin Time 12.2 sec (9.8-11.6)
[2018-01-30 12:11] LABS: D-Dimer 0.26 mg/L FEU (0.00-0.50)
[2018-01-30] MEDS: Potassium Chlor 20 mEq Premix 20 MEQ/100 ML PIGGYBACK IV.SIG SCH ×2 (12:30→17:14)
--- NOTE | 2018-01-30 13:08 | ED ---
HPI General Chief complaint: Respiratory Symptoms Stated complaint: sob Time Seen by Provider: 01/30/18 10:22 History of Present Illness HPI narrative: 72 female here for evaluation of chest pain and palpitations that started this morning. She has history of A. fib that she currently takes Xarelto. She has a history of hypertension diabetes and hypokalemia. Patient reports this morning she noticed her heart racing, associated with mild chest pain that was in the left side, rated 3/10, no radiation, symptoms occurred at rest, no fever or chills or night sweats. Patient reports bronchitis symptoms and she currently on day 4 of Z-Adam. Reports that her cough is getting better but she is worried about her palpitations and chest pains. Related Data Home Medications Medication Instructions Recorded Confirmed amlodipine 5 mg PO BID 01/30/18 01/30/18 atorvastatin 20 mg PO DAILY 01/30/18 01/30/18 brimonidine-timolol [Combigan] 1 drp OPHTHALMIC (EYE) BID 01/30/18 01/30/18 budesonide-formoterol [Symbicort] 2 puff INHALATION BID 01/30/18 01/30/18 conjugated estrogens [Premarin] 1.25 mg PO DAILY 01/30/18 01/30/18 fenofibrate nanocrystallized 145 mg PO DAILY 01/30/18 01/30/18 fluoxetine 20 mg PO DAILY 01/30/18 01/30/18 hydralazine 50 mg PO TID 01/30/18 01/30/18 hydrochlorothiazide 25 mg PO DAILY 01/30/18 01/30/18 isosorbide mononitrate 30 mg PO DAILY 01/30/18 01/30/18 metformin 500 mg PO BID 01/30/18 01/30/18 metoprolol succinate 50 mg PO DAILY 01/30/18 01/30/18 potassium chloride 10 meq PO DAILY 01/30/18 01/30/18 rivaroxaban [Xarelto] 20 mg PO DAILY 01/30/18 01/30/18 travoprost [Travatan Z] 1 drp OPHTHALMIC (EYE) QPM 01/30/18 01/30/18 Allergies Allergy/AdvReac Type Severity Reaction Status Date / Time metronidazole Allergy Severe Itching Unverified 04/19/17 17:04 morphine Allergy Severe Itching, Verified 04/19/17 18:17 jittery penicillin G Allergy Severe HIVES Unverified 04/19/17 17:04 Review of Systems ROS: all other systems reviewed are negative [facility] Medical History Medical History Arthritis (Acute) Atrial fibrillation (Acute) Glaucoma (Acute) HTN (hypertension) (Acute) High cholesterol (Acute) History of hysterectomy (Acute) Hypokalemia (Acute) Irritable bowel syndrome (Acute) Lung disease (Acute) T2DM (type 2 diabetes mellitus) (Acute) Surgical History Surgical History History of cholecystectomy (Acute) History of eye surgery (Acute) History of foot surgery (Acute) History of lung biopsy (Acute) Family History Family History Mother Family history of hypertension Social History Social History Substance History: No History of Abuse Second Hand Smoke Exposure: No Smoking Status: Never smoker How Often Do You Have a Drink Containing Alcohol: Never Recent Travel in [facility] within the Last 8 Weeks: No Recent Out of Country Travel within the Last 8 Weeks: No Immunization History Tetanus Immunization: Unsure Exam Narrative Exam Narrative: GENERAL: Alert oriented x3 no acute distress. SKIN: Focused skin assessment warm/dry. HEAD: Atraumatic. Normocephalic. EYES: Pupils equal and round. No scleral icterus. No injection or drainage. ENT: No nasal bleeding or discharge. Mucous membranes pink and moist. NECK: Trachea midline. No JVD. CARDIOVASCULAR: Regular rate and rhythm. No murmur appreciated. RESPIRATORY: No accessory muscle use. Clear to auscultation. Breath sounds equal bilaterally. GASTROINTESTINAL: Abdomen soft, non-tender, nondistended. Hepatic and splenic margins not palpable. MUSCULOSKELETAL: No obvious deformities. No clubbing. No cyanosis. No edema. NEUROLOGICAL: Awake and alert. No obvious cranial nerve deficits. Motor grossly within normal limits. Normal speech. PSYCHIATRIC: Appropriate mood and affect; insight and judgment normal. Course Initial Documented Vital Signs Temperature 98.4 F 01/30/18 10:43 Pulse Rate 100 H 01/30/18 10:43 Respiratory Rate 18 01/30/18 10:43 Blood Pressure 145/67 H 01/30/18 10:43 Pulse Oximetry 90 L 01/30/18 10:43 Last Documented Vital Signs Temperature 97.3 F L 01/31/18 08:00 Pulse Rate 65 01/31/18 08:00 Respiratory Rate 20 01/31/18 08:00 Blood Pressure 150/66 H 01/31/18 08:00 Pulse Oximetry 91 L 01/31/18 08:00 Medical Decision Making MDM Narrative Medical decision making narrative: 72 female here for palpitations and chest pains. She is on day 4 of Z-Adam for her bronchitis. Labs are reasonably within normal limits except for hypokalemia and hyponatremia. EKG shows A. fib with concerning U waves which could be from the hypokalemia. X-ray shows bronchitis but no evidence of pneumonia. Mildly elevated BNP. Given her chest pains and palpitations and EKG findings and her hypokalemia it is warranted to admit the patient for 23 hours obs. Medical Screen Exam Complete: Yes Emergency Medical Condition: Yes Lab Data Result diagrams: 01/31/18 06:45 01/31/18 06:45 Lab Results 01/30/18 01/30/18 01/30/18 Range/Units 11:09 11:09 11:09 CBC w Diff Auto diff final WBC 9.0 (4.0-11.0) th/mm3 RBC 4.02 (4.00-5.30) mil/mm3 Hgb 11.8 (11.6-15.3) gm/dL Hct 35.1 (35.0-46.0) % MCV 87.3 (80.0-100.0) fL MCH 29.2 (27.0-34.0) pg MCHC 33.5 (32.0-36.0) % RDW 13.5 (11.6-17.2) % Plt Count 311 (150-450) th/mm3 MPV 7.9 (7.0-11.0) fL Neut % (Auto) 75.0 H (16.0-70.0) % Lymph % (Auto) 12.9 (9.0-44.0) % [place] % (Auto) 10.8 H (0.0-8.0) % Eos % (Auto) 0.4 (0.0-4.0) % Baso % (Auto) 0.9 (0.0-2.0) % Neut # (Auto) 6.7 (1.8-7.7) th/mm3 Lymph # (Auto) 1.2 (1.0-4.8) th/mm3 [place] # (Auto) 1.0 H (0.0-0.9) th/mm3 Eos # (Auto) 0.0 (0.0-0.4) th/mm3 Baso # (Auto) 0.1 (0.0-0.2) th/mm3 WBC Differential . Differential Comment . PT 12.2 H (9.8-11.6) sec INR 1.2 Ratio APTT 31.9 H (23.4-31.7) sec D-Dimer Quant (PE/DVT) 0.26 (0.00-0.50) mg/L FEU Sodium 130 L (136-145) meq/L Potassium 2.8 L* (3.5-5.1) meq/L Chloride 89 L (98-107) meq/L Carbon Dioxide 30.6 (21.0-32.0) meq/L Anion Gap 10 (5-15) meq/L BUN 11 (7-18) mg/dL Creatinine 0.69 (0.50-1.00) mg/dL Estimated GFR 84 L (>89) mL/min POC Glucose (68-110) mg/dl Random Glucose 169 H (74-106) mg/dL Calcium 7.6 L (8.5-10.1) mg/dL Total Bilirubin 0.3 (0.2-1.0) mg/dL AST 20 (15-37) U/L ALT 15 (10-53) U/L Alkaline Phosphatase 43 L (45-117) U/L Total Creatine Kinase 118 (26-192) U/L CK-MB (CK-2) Less than 1.0 (0.5-3.6) ng/mL Troponin I Less than 0.02 L (0.02-0.05) ng/mL B-Natriuretic Peptide (0-100) pg/mL Total Protein 6.8 (6.4-8.2) g/dL Albumin 2.6 L (3.4-5.0) g/dL Triglycerides (42-150) mg/dL Cholesterol (120-200) mg/dL LDL Cholesterol, Calc (0-99) mg/dL HDL Cholesterol (40.0-60.0) mg/dL Cholesterol/HDL Ratio Ratio Lipase 106 (73-393) U/L Ur Collection Type Urine Color (Yellw/Straw) Urine Clarity (Clear) Urine pH (5.0-8.5) Ur Specific [place] (1.002-1.035) Urine Protein (Neg-Trace) mg/dL Urine Glucose (UA) (Negative) mg/dL Urine Ketones (Negative) mg/dL Urine Occult Blood (Negative) Urine Nitrate (Negative) Urine Bilirubin (Negative) Urine Ictotest (Negative) Urine Urobilinogen (Less than 2) mg/dL Ur Leukocyte Esterase (Negative) Urine WBC (0-5) /hpf Ur Squamous Epith Cells (0-5) /hpf Urine Bacteria (None) /hpf Micro UA Comment Ur Microscopic Review Urine Culture Comments 01/30/18 01/30/18 01/30/18 Range/Units 11:09 11:09 11:32 CBC w Diff WBC (4.0-11.0) th/mm3 RBC (4.00-5.30) mil/mm3 Hgb (11.6-15.3) gm/dL Hct (35.0-46.0) % MCV (80.0-100.0) fL MCH (27.0-34.0) pg MCHC (32.0-36.0) % RDW (11.6-17.2) % Plt Count (150-450) th/mm3 MPV (7.0-11.0) fL Neut % (Auto) (16.0-70.0) % Lymph % (Auto) (9.0-44.0) % [place] % (Auto) (0.0-8.0) % Eos % (Auto) (0.0-4.0) % Baso % (Auto) (0.0-2.0) % Neut # (Auto) (1.8-7.7) th/mm3 Lymph # (Auto) (1.0-4.8) th/mm3 [place] # (Auto) (0.0-0.9) th/mm3 Eos # (Auto) (0.0-0.4) th/mm3 Baso # (Auto) (0.0-0.2) th/mm3 WBC Differential Differential Comment PT (9.8-11.6) sec INR Ratio APTT Cancelled (23.4-31.7) sec D-Dimer Quant (PE/DVT) (0.00-0.50) mg/L FEU Sodium (136-145) meq/L Potassium (3.5-5.1) meq/L Chloride (98-107) meq/L Carbon Dioxide (21.0-32.0) meq/L Anion Gap (5-15) meq/L BUN (7-18) mg/dL Creatinine (0.50-1.00) mg/dL Estimated GFR (>89) mL/min POC Glucose (68-110) mg/dl Random Glucose (74-106) mg/dL Calcium (8.5-10.1) mg/dL Total Bilirubin (0.2-1.0) mg/dL AST (15-37) U/L ALT (10-53) U/L Alkaline Phosphatase (45-117) U/L Total Creatine Kinase (26-192) U/L CK-MB (CK-2) (0.5-3.6) ng/mL Troponin I (0.02-0.05) ng/mL B-Natriuretic Peptide 370 H (0-100) pg/mL Total Protein (6.4-8.2) g/dL Albumin (3.4-5.0) g/dL Triglycerides (42-150) mg/dL Cholesterol (120-200) mg/dL LDL Cholesterol, Calc (0-99) mg/dL HDL Cholesterol (40.0-60.0) mg/dL Cholesterol/HDL Ratio Ratio Lipase (73-393) U/L Ur Collection Type Clean catch Urine Color Yellow (Yellw/Straw) Urine Clarity Clear (Clear) Urine pH 6.5 (5.0-8.5) Ur Specific [place] 1.015 (1.002-1.035) Urine Protein 30 H (Neg-Trace) mg/dL Urine Glucose (UA) Negative (Negative) mg/dL Urine Ketones Trace H (Negative) mg/dL Urine Occult Blood Negative (Negative) Urine Nitrate Negative (Negative) Urine Bilirubin Negative (Negative) Urine Ictotest Negative (Negative) Urine Urobilinogen 0.2 (Less than 2) mg/dL Ur Leukocyte Esterase Negative (Negative) Urine WBC 0-5 (0-5) /hpf Ur Squamous Epith Cells Greater than 10 H (0-5) /hpf Urine Bacteria Occasional H (None) /hpf Micro UA Comment Culture not ind Ur Microscopic Review Microscopic reviewed Urine Culture Comments Culture not ind 01/30/18 01/30/18 01/31/18 Range/Units 17:20 21:17 06:45 CBC w Diff Auto diff final WBC 6.9 (4.0-11.0) th/mm3 RBC 3.28 L (4.00-5.30) mil/mm3 Hgb 10.6 L (11.6-15.3) gm/dL Hct 31.0 L (35.0-46.0) % MCV 94.7 D (80.0-100.0) fL MCH 32.4 (27.0-34.0) pg MCHC 34.2 (32.0-36.0) % RDW 14.2 (11.6-17.2) % Plt Count 267 (150-450) th/mm3 MPV 8.2 (7.0-11.0) fL Neut % (Auto) 58.7 (16.0-70.0) % Lymph % (Auto) 23.6 (9.0-44.0) % [place] % (Auto) 15.4 H (0.0-8.0) % Eos % (Auto) 2.0 (0.0-4.0) % Baso % (Auto) 0.3 (0.0-2.0) % Neut # (Auto) 4.1 (1.8-7.7) th/mm3 Lymph # (Auto) 1.6 (1.0-4.8) th/mm3 [place] # (Auto) 1.1 H (0.0-0.9) th/mm3 Eos # (Auto) 0.1 (0.0-0.4) th/mm3 Baso # (Auto) 0.0 (0.0-0.2) th/mm3 WBC Differential . Differential Comment . PT (9.8-11.6) sec INR Ratio APTT (23.4-31.7) sec D-Dimer Quant (PE/DVT) (0.00-0.50) mg/L FEU Sodium 127 L (136-145) meq/L Potassium 3.5 (3.5-5.1) meq/L Chloride 91 L (98-107) meq/L Carbon Dioxide 28.8 (21.0-32.0) meq/L Anion Gap 7 (5-15) meq/L BUN 11 (7-18) mg/dL Creatinine 0.65 (0.50-1.00) mg/dL Estimated GFR Greater than 89 (>89) mL/min POC Glucose 139 H (68-110) mg/dl Random Glucose 116 H (74-106) mg/dL Calcium 7.5 L (8.5-10.1) mg/dL Total Bilirubin (0.2-1.0) mg/dL AST (15-37) U/L ALT (10-53) U/L Alkaline Phosphatase (45-117) U/L Total Creatine Kinase 119 (26-192) U/L CK-MB (CK-2) (0.5-3.6) ng/mL Troponin I 0.03 (0.02-0.05) ng/mL B-Natriuretic Peptide (0-100) pg/mL Total Protein (6.4-8.2) g/dL Albumin (3.4-5.0) g/dL Triglycerides (42-150) mg/dL Cholesterol (120-200) mg/dL LDL Cholesterol, Calc (0-99) mg/dL HDL Cholesterol (40.0-60.0) mg/dL Cholesterol/HDL Ratio Ratio Lipase (73-393) U/L Ur Collection Type Urine Color (Yellw/Straw) Urine Clarity (Clear) Urine pH (5.0-8.5) Ur Specific [place] (1.002-1.035) Urine Protein (Neg-Trace) mg/dL Urine Glucose (UA) (Negative) mg/dL Urine Ketones (Negative) mg/dL Urine Occult Blood (Negative) Urine Nitrate (Negative) Urine Bilirubin (Negative) Urine Ictotest (Negative) Urine Urobilinogen (Less than 2) mg/dL Ur Leukocyte Esterase (Negative) Urine WBC (0-5) /hpf Ur Squamous Epith Cells (0-5) /hpf Urine Bacteria (None) /hpf Micro UA Comment Ur Microscopic Review Urine Culture Comments 01/31/18 01/31/18 01/31/18 Range/Units 06:45 06:45 06:45 CBC w Diff WBC (4.0-11.0) th/mm3 RBC (4.00-5.30) mil/mm3 Hgb (11.6-15.3) gm/dL Hct (35.0-46.0) % MCV (80.0-100.0) fL MCH (27.0-34.0) pg MCHC (32.0-36.0) % RDW (11.6-17.2) % Plt Count (150-450) th/mm3 MPV (7.0-11.0) fL Neut % (Auto) (16.0-70.0) % Lymph % (Auto) (9.0-44.0) % [place] % (Auto) (0.0-8.0) % Eos % (Auto) (0.0-4.0) % Baso % (Auto) (0.0-2.0) % Neut # (Auto) (1.8-7.7) th/mm3 Lymph # (Auto) (1.0-4.8) th/mm3 [place] # (Auto) (0.0-0.9) th/mm3 Eos # (Auto) (0.0-0.4) th/mm3 Baso # (Auto) (0.0-0.2) th/mm3 WBC Differential Differential Comment PT (9.8-11.6) sec INR Ratio APTT (23.4-31.7) sec D-Dimer Quant (PE/DVT) (0.00-0.50) mg/L FEU Sodium 136 (136-145) meq/L Potassium 3.6 (3.5-5.1) meq/L Chloride 99 D (98-107) meq/L Carbon Dioxide 28.4 (21.0-32.0) meq/L Anion Gap 9 (5-15) meq/L BUN 10 (7-18) mg/dL Creatinine 0.42 L (0.50-1.00) mg/dL Estimated GFR Greater than 89 (>89) mL/min POC Glucose (68-110) mg/dl Random Glucose 102 (74-106) mg/dL Calcium 7.6 L (8.5-10.1) mg/dL Total Bilirubin (0.2-1.0) mg/dL AST (15-37) U/L ALT (10-53) U/L Alkaline Phosphatase (45-117) U/L Total Creatine Kinase 102 (26-192) U/L CK-MB (CK-2) 1.5 (0.5-3.6) ng/mL Troponin I Less than 0.02 L (0.02-0.05) ng/mL B-Natriuretic Peptide (0-100) pg/mL Total Protein (6.4-8.2) g/dL Albumin (3.4-5.0) g/dL Triglycerides 138 (42-150) mg/dL Cholesterol 97 L (120-200) mg/dL LDL Cholesterol, Calc 28 (0-99) mg/dL HDL Cholesterol 41.3 (40.0-60.0) mg/dL Cholesterol/HDL Ratio 2.34 Ratio Lipase (73-393) U/L Ur Collection Type Urine Color (Yellw/Straw) Urine Clarity (Clear) Urine pH (5.0-8.5) Ur Specific [place] (1.002-1.035) Urine Protein (Neg-Trace) mg/dL Urine Glucose (UA) (Negative) mg/dL Urine Ketones (Negative) mg/dL Urine Occult Blood (Negative) Urine Nitrate (Negative) Urine Bilirubin (Negative) Urine Ictotest (Negative) Urine Urobilinogen (Less than 2) mg/dL Ur Leukocyte Esterase (Negative) Urine WBC (0-5) /hpf Ur Squamous Epith Cells (0-5) /hpf Urine Bacteria (None) /hpf Micro UA Comment Ur Microscopic Review Urine Culture Comments Imaging Data Radiologist's impression: Chest X-Ray 01/30/18 10:45 CONCLUSION: Central interstitial prominence with bronchial wall thickening which may represent bronchitis. Mild cardiomegaly No evidence of peripheral consolidating airspace disease. Discharge Plan Discharge Disposition Patient Disposition: 01 Discharge Home Discharge Condition Condition: Stable Discharge Order Discharge Orders: Discharge Order (Routine); Ordered 01/31/18 Ordered By: Rl Soares Discharge Details Anticipated Discharge Date: 01/31/18 Physicians Team ED Provider: Mike Patiño Primary Care Provider: Torito Mojica Attending Provider: Jovon Mcmanus Status ED Status: Left Department Discharge Information Discharge Date/Time: 01/30/18 14:23
--- NOTE | 2018-01-30 14:01 | P.HP ---
History of Present Illness Primary Care Physician: Torito Mojica MD Chief Complaint: Chest pain History of Present Illness: 72-year-old female with known history of atrial fibrillation, hyperlipidemia, hypertension, irritable bowel syndrome who presented to hospital for evaluation of fast heart rate, chest pain. Patient states that she was in normal state of health until this morning when she started having excessive amount of loose stools. She is contributing this to her irritable bowel syndrome then she started feeling her heart racing she put on her pulse oximeter and noticed that her heart rate was anywhere from 90-140. She started developing pain on the left side of her chest radiating into her back behind her left shoulder blade without any nausea, vomiting, shortness of breath, dyspnea, lightheadedness, dizziness. The patient came to the emergency department and she indicates that the pain was still in her chest when she got here her heart rate was 100 at the time. She states that the pain resolved after they started infusing potassium. Patient states that she does have a long history of hypokalemia in which she does take replacement on a daily basis. She has had increased amount of loose stools over the last few hours. States that she is been on the toilet at least 7 times with loose stools. Patient denies any hematochezia, melena. Presently the patient is asymptomatic. Heart rate is controlled. Patient denies any chest pain. It was recommended by the ER physician the patient be observed in the hospital for further evaluation and management. Patient is followed by Dr. Tobar on a regular basis. - Diagnosis (1) Chest pain (2) Hypokalemia Review of Systems All other systems reviewed negative except as stated in HPI Cardiovascular: Reports chest pain, Reports radiating jaw, neck or arm pain Gastrointestinal: Reports loose stools PMFSH - History History Provided By: Patient - Medical History Medical History: Medical History (Last Updated 01/30/18 @ 13:59 by ELANA Milian) Arthritis Atrial fibrillation Glaucoma HTN (hypertension) High cholesterol History of hysterectomy Hypokalemia Irritable bowel syndrome Lung disease T2DM (type 2 diabetes mellitus) - Surgical History Surgical History: Surgical History (Last Updated 01/30/18 @ 10:53 by Michael Blair RN) History of cholecystectomy History of eye surgery History of foot surgery History of lung biopsy - Family History Family History: Family History (Last Updated 01/30/18 @ 14:00 by ELANA Milian) Mother Family history of hypertension - Tobacco History Smoking Status: Never smoker - Alcohol History How Often Do You Have a Drink Containing Alcohol: Never - Substance Use History Substance History: No History of Abuse - Travel History Recent Travel in the [place] Within the Last 8 Weeks: No Recent Travel Out of the Country Within the Last 8 Weeks: No - Immunization History Tetanus Immunization: Unsure Medications and Allergies Active Medications: Active Medications Potassium Chloride (Kcl 20 Meq Premix Inj) 20 meq in 100 mls @ 50 mls/hr IV.SIG Q2H GRANT Stop: 01/30/18 16:14 Last Infusion: 01/30/18 13:15 Dose: 25 mls/hr Allergies Allergy/AdvReac Type Severity Reaction Status Date / Time metronidazole Allergy Severe Itching Unverified 04/19/17 17:04 morphine Allergy Severe Itching, Verified 04/19/17 18:17 jittery penicillin G Allergy Severe HIVES Unverified 04/19/17 17:04 Home Medications Medication Instructions Recorded Confirmed Type amlodipine 5 mg PO BID 01/30/18 01/30/18 History atorvastatin 20 mg PO DAILY 01/30/18 01/30/18 History brimonidine-timolol [Combigan] 1 drp OPHTHALMIC (EYE) BID 01/30/18 01/30/18 History budesonide-formoterol [Symbicort] 2 puff INHALATION BID 01/30/18 01/30/18 History conjugated estrogens [Premarin] 1.25 mg PO DAILY 01/30/18 01/30/18 History fenofibrate nanocrystallized 145 mg PO DAILY 01/30/18 01/30/18 History fluoxetine 20 mg PO DAILY 01/30/18 01/30/18 History hydralazine 50 mg PO TID 01/30/18 01/30/18 History hydrochlorothiazide 25 mg PO DAILY 01/30/18 01/30/18 History isosorbide mononitrate 30 mg PO DAILY 01/30/18 01/30/18 History metformin 500 mg PO BID 01/30/18 01/30/18 History metoprolol succinate 50 mg PO DAILY 01/30/18 01/30/18 History potassium chloride 10 meq PO DAILY 01/30/18 01/30/18 History rivaroxaban [Xarelto] 20 mg PO DAILY 01/30/18 01/30/18 History travoprost [Travatan Z] 1 drp OPHTHALMIC (EYE) QPM 01/30/18 01/30/18 History Exam Vital signs: Vital Signs 01/30/18 10:43 01/30/18 11:37 01/30/18 13:15 Temperature 98.4 F Pulse Rate 100 H 115 H 63 Respiratory Rate 18 16 16 Blood Pressure 145/67 H 125/80 140/68 Pulse Oximetry 90 L 94 L 93 L Intake & Output 01/29/18 01/30/18 01/30/18 18:59 06:59 18:59 Weight 84 kg Narrative: GENERAL: Well-developed, well-nourished, in no acute distress. alert and orientated HEENT: Head is normocephalic without any lesions or masses noted. Facial features are symmetric. Eyes: Pupils equal round reactive to light. Extraocular muscles are intact. Conjunctivae were clear. Oropharyngeal: Pharynx without any erythema edema. Tongue is midline without deviation. Buccal mucosa is moist without any masses or lesions NECK: Supple without any masses. Trachea midline no deviation. No JVD, no bruits are appreciated CARDIAC: Irregular rhythm, irregular rate. S1/S2 are heard. No murmurs gallops or rubs. LUNGS: Clear to auscultation bilaterally. No wheeze, rhonchi or rales. No use of accessory muscles on inspiration or expiration. ABDOMEN: Soft, nontender. Nondistended. Bowel sounds heard in all 4 quadrants. No organomegaly or masses. Negative rebound, negative guarding EXTREMITIES: No edema, pulses are equal bilaterally. No cyanosis or clubbing NEUROLOGY: Mood and affect appear appropriate. Cranial nerves II through XII grossly intact. Muscle strength 5/5 in upper and lower extremities bilaterally. Deep tendon reflexes are 2+ in upper and lower extremities bilaterally. Results - Labs CBC & Chem 7: 01/30/18 11:09 01/30/18 11:09 Labs: Laboratory Results - last 24 hr 01/30/18 01/30/18 01/30/18 11:09 11:09 11:09 CBC w Diff Auto diff final WBC 9.0 RBC 4.02 Hgb 11.8 Hct 35.1 MCV 87.3 MCH 29.2 MCHC 33.5 RDW 13.5 Plt Count 311 MPV 7.9 Neut % (Auto) 75.0 H Lymph % (Auto) 12.9 [place] % (Auto) 10.8 H Eos % (Auto) 0.4 Baso % (Auto) 0.9 Neut # (Auto) 6.7 Lymph # (Auto) 1.2 [place] # (Auto) 1.0 H Eos # (Auto) 0.0 Baso # (Auto) 0.1 WBC Differential . Differential Comment . PT 12.2 H INR 1.2 APTT 31.9 H D-Dimer Quant (PE/DVT) 0.26 Sodium 130 L Potassium 2.8 L* Chloride 89 L Carbon Dioxide 30.6 Anion Gap 10 BUN 11 Creatinine 0.69 Estimated GFR 84 L Random Glucose 169 H Calcium 7.6 L Total Bilirubin 0.3 AST 20 ALT 15 Alkaline Phosphatase 43 L Total Creatine Kinase 118 CK-MB (CK-2) Less than 1.0 Troponin I Less than 0.02 L B-Natriuretic Peptide Total Protein 6.8 Albumin 2.6 L Lipase 106 Ur Collection Type Urine Color Urine Clarity Urine pH Ur Specific [place] Urine Protein Urine Glucose (UA) Urine Ketones Urine Occult Blood Urine Nitrate Urine Bilirubin Urine Ictotest Urine Urobilinogen Ur Leukocyte Esterase Urine WBC Ur Squamous Epith Cells Urine Bacteria Micro UA Comment Ur Microscopic Review Urine Culture Comments 01/30/18 01/30/18 01/30/18 11:09 11:09 11:32 CBC w Diff WBC RBC Hgb Hct MCV MCH MCHC RDW Plt Count MPV Neut % (Auto) Lymph % (Auto) [place] % (Auto) Eos % (Auto) Baso % (Auto) Neut # (Auto) Lymph # (Auto) [place] # (Auto) Eos # (Auto) Baso # (Auto) WBC Differential Differential Comment PT INR APTT Cancelled D-Dimer Quant (PE/DVT) Sodium Potassium Chloride Carbon Dioxide Anion Gap BUN Creatinine Estimated GFR Random Glucose Calcium Total Bilirubin AST ALT Alkaline Phosphatase Total Creatine Kinase CK-MB (CK-2) Troponin I B-Natriuretic Peptide 370 H Total Protein Albumin Lipase Ur Collection Type Clean catch Urine Color Yellow Urine Clarity Clear Urine pH 6.5 Ur Specific [place] 1.015 Urine Protein 30 H Urine Glucose (UA) Negative Urine Ketones Trace H Urine Occult Blood Negative Urine Nitrate Negative Urine Bilirubin Negative Urine Ictotest Negative Urine Urobilinogen 0.2 Ur Leukocyte Esterase Negative Urine WBC 0-5 Ur Squamous Epith Cells Greater than 10 H Urine Bacteria Occasional H Micro UA Comment Culture not ind Ur Microscopic Review Microscopic reviewed Urine Culture Comments Culture not ind - Imaging Impressions Chest X-Ray 01/30/18 10:45 CONCLUSION: Central interstitial prominence with bronchial wall thickening which may represent bronchitis. Mild cardiomegaly No evidence of peripheral consolidating airspace disease. Caprini VTE Risk Assessment Caprini VTE Risk Assessment: No/Low Risk (score <= 1) Caprini Risk Assessment Model: Point Value = 1 Point Value = 2 Point Value = 3 Point Value = 5 Age 41-60 Minor surgery BMI > 25 kg/m2 Swollen legs Varicose veins or History of unexplained or recurrent spontaneous Oral contraceptives or hormone replacement Sepsis (< 1 month) Serious lung disease, including pneumonia (< 1 month) Abnormal pulmonary function Acute myocardial infarction Congestive heart failure (< 1 month) History of inflammatory bowel disease Medical patient at bed rest Age 61-74 Arthroscopic surgery Major open surgery (> 45 min) Laparoscopic surgery (> 45 min) Malignancy Confined to bed (> 72 hours) Immobilizing plaster cast Central venous access Age >= 75 History of VTE Family history of VTE Factor V Leiden Prothrombin [id number] Lupus anticoagulant Anticardiolipin antibodies Elevated serum homocysteine Heparin-induced thrombocytopenia Other congenital or acquired thrombophilia Stroke (< 1 month) Elective arthroplasty Hip, pelvis, or leg fracture Acute spinal cord injury (< 1 month) Prophylaxis Regimen: Total Risk Factor Score Risk Level Prophylaxis Regimen 0-1 Low Early ambulation 2 Moderate Order ONE of the following: *Sequential Compression Device (SCD) *Heparin 5000 units SQ BID 3-4 Higher Order ONE of the following medications: *Heparin 5000 units SQ TID *Enoxaparin/Lovenox 40 mg SQ daily (WT < 150 kg, CrCl > 30 mL/min) *Enoxaparin/Lovenox 30 mg SQ daily (WT < 150 kg, CrCl > 10-29 mL/min) *Enoxaparin/Lovenox 30 mg SQ BID (WT < 150 kg, CrCl > 30 mL/min) AND/OR *Sequential Compression Device (SCD) 5 or more Highest Order ONE of the following medications: *Heparin 5000 units SQ TID (Preferred with Epidurals) *Enoxaparin/Lovenox 40 mg SQ daily (WT < 150 kg, CrCl > 30 mL/min) *Enoxaparin/Lovenox 30 mg SQ daily (WT < 150 kg, CrCl > 10-29 mL/min) *Enoxaparin/Lovenox 30 mg SQ BID (WT < 150 kg, CrCl > 30 mL/min) AND *Sequential Compression Device (SCD) Assessment and Plan - Assessment (1) Chest pain Code(s): R07.9 - Chest pain, unspecified Status: Acute (2) Hypokalemia Code(s): E87.6 - Hypokalemia Status: Acute - Plan Chest pain, atypical -Could be secondary to A. fib with RVR, however patient does have increased risk factors include age, hypertension, hyperlipidemia, family history of heart disease, diabetes -Thus far workup is negative for acute coronary event. We will continue to trend cardiac enzymes and EKGs. Initial EKG showing atrial fibrillation -Patient will be continued on beta-malcolm, nitroglycerin, statin. -Continue monitor telemetry -Oxygen as needed Atrial fibrillation with RVR -At home patient did have heart rate up to 150. However 110 in the emergency department here. Heart rate is improved after administration of potassium -Likely worsening of her atrial relation secondary to significant hypokalemia -Continue monitor telemetry -Home medications were continued for rate control to include metoprolol -Anticoagulation with Xarelto Hypokalemia -Patient does have chronic hypokalemia usually on KCl 10 mEq daily, however she has had increased amount of loose stools lately which could contribute to potassium loss -Continue to replete and monitor as needed Irritable bowel syndrome with loose stools -Imodium as needed Diabetes -Accu-Cheks with sliding scale insulin Hypertension, hyperlipidemia -Home medications were continued DVT prevention -Patient is on Xarelto -Sequential compression devices
[2018-01-30] MEDS ORDERED: Potassium Chloride 10 MEQ ER Capsule PO SCH (14:15)
[2018-01-30] MEDS ORDERED: Non-Formulary Drug (Brimonidine-Timolol [Combigan] 1 DRP) EACH EYE SCH (14:15)
[2018-01-30] MEDS ORDERED: Loperamide 2 MG Capsule PO PRN (14:16)
[2018-01-30] MEDS: Rivaroxaban 20 MG Tablet PO SCH (14:34)
[2018-01-30] MEDS: Fenofibrate 145 MG Tablet PO SCH (14:34)
[2018-01-30] MEDS: amLODIPine 5 MG Tablet PO SCH ×2 (14:34→21:11)
[2018-01-30] MEDS: FLUoxetine 20 MG Capsule PO SCH (14:35)
[2018-01-30] MEDS: Isosorbide Mononitrate 30 MG ER 24HR Tablet (Imdur) PO SCH (14:35)
[2018-01-30] MEDS: hydroCHLOROthiazide 25 MG Tablet PO SCH (14:42)
[2018-01-30] MEDS ORDERED: Potassium Chloride Inj 10 MEQ in Sod Chloride 0.9% Inj 1,000 ML IV.CONT SCH (15:00)
[2018-01-30] MEDS: Budesonide-Formoterol 160/4.5 MCG 6 GM Inhaler INH SCH ×2 (15:51→21:19)
[2018-01-30] MEDS ORDERED: Temazepam 15 MG Capsule PO PRN (17:14)
[2018-01-30 17:41] LABS: Chloride 91 meq/L (98-107); Potassium 3.5 meq/L (3.5-5.1); Sodium 127 meq/L (136-145)
[2018-01-30 17:43] LABS: Calcium 7.5 mg/dL (8.5-10.1)
[2018-01-30 17:44] LABS: Anion Gap 7 meq/L (5-15); Blood Urea Nitrogen 11 mg/dL (7-18); Carbon Dioxide 28.8 meq/L (21.0-32.0); Glucose,Random 116 mg/dL (74-106)
[2018-01-30 17:47] LABS: Glomerular Filtration Rate Greater Than 89 mL/min (>89)
[2018-01-30] MEDS: hydrALAZINE 50 MG Tablet PO SCH (17:48)
[2018-01-30 17:51] LABS: Creatine Kinase 119 U/L (26-192)
[2018-01-30 17:52] LABS: Troponin I 0.03 ng/mL (0.02-0.05)
[2018-01-30] MEDS ORDERED: Dextrose 50% in Water 50 ML Vial IV.PUSH PRN (18:59)
[2018-01-30] MEDS ORDERED: Latanoprost 0.005% Opth Drops 2.5 ML Bottle EACH EYE SCH (21:00)
[2018-01-30] MEDS: Brimonidine 0.2% Opth Drops 5 ML Bottle EACH EYE SCH (21:10)
[2018-01-30] MEDS: Timolol 0.5% Drops 5 ML Bottle EACH EYE SCH (21:10)
[2018-01-30] MEDS: Insulin NovoLOG Aspart Correctional Sugar Inj SQ SCH (21:18)
[2018-01-31 07:38] LABS: Baso % (Auto) 0.3 % (0.0-2.0); Eos # (Auto) 0.1 th/mm3 (0.0-0.4); Hemoglobin 10.6 gm/dL (11.6-15.3); Lymph # (Auto) 1.6 th/mm3 (1.0-4.8); Lymph % (Auto) 23.6 % (9.0-44.0); Mean Corpuscular HGB Conc 34.2 % (32.0-36.0); Mean Corpuscular Hemoglobin 32.4 pg (27.0-34.0); Mean Corpuscular Volume 94.7 fL (80.0-100.0); Mean Platelet Volume 8.2 fL (7.0-11.0); Mono # (Auto) 1.1 th/mm3 (0.0-0.9); Mono % (Auto) 15.4 % (0.0-8.0); Neut # (Auto) 4.1 th/mm3 (1.8-7.7); Neut % (Auto) 58.7 % (16.0-70.0); Platelet Count 267 th/mm3 (150-450); Red Blood Count 3.28 mil/mm3 (4.00-5.30); Red Cell Distribution Width 14.2 % (11.6-17.2); White Blood Count 6.9 th/mm3 (4.0-11.0)
[2018-01-31 07:48] LABS: Creatine Kinase 102 U/L (26-192)
--- NOTE | 2018-01-31 07:52 | P.PNIM ---
Subjective Interval history: 72-year-old female who is seen today for follow-up on chest pain, hypokalemia. Patient states that she is doing much better. She is having less frequency of stools. Denies any recurrent chest pain. Vital signs remained stable. Patient remains afebrile. Physical Exam Vital signs: Vital Signs 01/30/18 10:43 01/30/18 11:37 01/30/18 13:15 Temperature 98.4 F Pulse Rate 100 H 115 H 63 Respiratory Rate 18 16 16 Blood Pressure 145/67 H 125/80 140/68 Pulse Oximetry 90 L 94 L 93 L 01/30/18 14:13 01/30/18 15:48 01/30/18 16:00 Temperature 97.4 F L 97.4 F L Pulse Rate 75 75 64 Respiratory Rate 18 18 Blood Pressure 146/63 H 133/60 Pulse Oximetry 91 L 93 L 01/30/18 20:00 01/31/18 00:00 01/31/18 04:00 Temperature 97.2 F L 97.4 F L 96.1 F L Pulse Rate 58 L 60 57 L Respiratory Rate 16 16 16 Blood Pressure 127/63 117/56 L 108/52 L Pulse Oximetry 90 L 91 L 90 L Intake & Output 01/30/18 01/31/18 01/31/18 18:59 06:59 18:59 Intake Total 100 / 100 1580 / 1580 Balance 100 / 100 1580 / 1580 Weight 88.6 kg 90.6 kg Intake: IV 100 / 100 1100 / 1100 NS + KCl 20 mEq Inj 1,000 ML @ 1000 / 1000 84 mls/hr IV.CONT .[id number] GRANT Rx#:[id number] KCl 20 mEq Premix Inj 20 meq In 100 / 100 100 / 100 100 ml @ 50 mls/hr IV.SIG Q2H GRANT Rx#:[id number] Oral 480 / 480 Other: # Voids 3 4 # Bowel Movements 1 Weight On Admission 84 kg Narrative: GENERAL: Well-developed, well-nourished, in no acute distress. alert and orientated HEENT: Head is normocephalic without any lesions or masses noted. Facial features are symmetric. Eyes: Extraocular muscles are intact. Conjunctivae were clear. NECK: Supple without any masses. Trachea midline no deviation. No JVD, CARDIAC: Irregular rhythm, irregular rate. S1/S2 are heard. No murmurs gallops or rubs. LUNGS: Clear to auscultation bilaterally. No wheeze, rhonchi or rales. No use of accessory muscles on inspiration or expiration. ABDOMEN: Soft, nontender. Nondistended. Bowel sounds heard in all 4 quadrants. No organomegaly or masses. Negative rebound, negative guarding EXTREMITIES: No edema, pulses are equal bilaterally. No cyanosis or clubbing NEUROLOGY: Mood and affect appear appropriate. Cranial nerves II through XII grossly intact. Moving all extremities, speech is clear Results - Labs CBC & Chem 7: 01/31/18 06:45 01/31/18 06:45 Laboratory Results - last 24 hr 01/30/18 01/30/18 01/30/18 11:09 11:09 11:09 CBC w Diff Auto diff final WBC 9.0 RBC 4.02 Hgb 11.8 Hct 35.1 MCV 87.3 MCH 29.2 MCHC 33.5 RDW 13.5 Plt Count 311 MPV 7.9 Neut % (Auto) 75.0 H Lymph % (Auto) 12.9 [place] % (Auto) 10.8 H Eos % (Auto) 0.4 Baso % (Auto) 0.9 Neut # (Auto) 6.7 Lymph # (Auto) 1.2 [place] # (Auto) 1.0 H Eos # (Auto) 0.0 Baso # (Auto) 0.1 WBC Differential . Differential Comment . PT 12.2 H INR 1.2 APTT 31.9 H D-Dimer Quant (PE/DVT) 0.26 Sodium 130 L Potassium 2.8 L* Chloride 89 L Carbon Dioxide 30.6 Anion Gap 10 BUN 11 Creatinine 0.69 Estimated GFR 84 L POC Glucose Random Glucose 169 H Calcium 7.6 L Total Bilirubin 0.3 AST 20 ALT 15 Alkaline Phosphatase 43 L Total Creatine Kinase 118 CK-MB (CK-2) Less than 1.0 Troponin I Less than 0.02 L B-Natriuretic Peptide Total Protein 6.8 Albumin 2.6 L Lipase 106 Ur Collection Type Urine Color Urine Clarity Urine pH Ur Specific [place] Urine Protein Urine Glucose (UA) Urine Ketones Urine Occult Blood Urine Nitrate Urine Bilirubin Urine Ictotest Urine Urobilinogen Ur Leukocyte Esterase Urine WBC Ur Squamous Epith Cells Urine Bacteria Micro UA Comment Ur Microscopic Review Urine Culture Comments 01/30/18 01/30/18 01/30/18 11:09 11:09 11:32 CBC w Diff WBC RBC Hgb Hct MCV MCH MCHC RDW Plt Count MPV Neut % (Auto) Lymph % (Auto) [place] % (Auto) Eos % (Auto) Baso % (Auto) Neut # (Auto) Lymph # (Auto) [place] # (Auto) Eos # (Auto) Baso # (Auto) WBC Differential Differential Comment PT INR APTT Cancelled D-Dimer Quant (PE/DVT) Sodium Potassium Chloride Carbon Dioxide Anion Gap BUN Creatinine Estimated GFR POC Glucose Random Glucose Calcium Total Bilirubin AST ALT Alkaline Phosphatase Total Creatine Kinase CK-MB (CK-2) Troponin I B-Natriuretic Peptide 370 H Total Protein Albumin Lipase Ur Collection Type Clean catch Urine Color Yellow Urine Clarity Clear Urine pH 6.5 Ur Specific [place] 1.015 Urine Protein 30 H Urine Glucose (UA) Negative Urine Ketones Trace H Urine Occult Blood Negative Urine Nitrate Negative Urine Bilirubin Negative Urine Ictotest Negative Urine Urobilinogen 0.2 Ur Leukocyte Esterase Negative Urine WBC 0-5 Ur Squamous Epith Cells Greater than 10 H Urine Bacteria Occasional H Micro UA Comment Culture not ind Ur Microscopic Review Microscopic reviewed Urine Culture Comments Culture not ind 01/30/18 01/30/18 01/31/18 17:20 21:17 06:45 CBC w Diff Auto diff final WBC 6.9 RBC 3.28 L Hgb 10.6 L Hct 31.0 L MCV 94.7 D MCH 32.4 MCHC 34.2 RDW 14.2 Plt Count 267 MPV 8.2 Neut % (Auto) 58.7 Lymph % (Auto) 23.6 [place] % (Auto) 15.4 H Eos % (Auto) 2.0 Baso % (Auto) 0.3 Neut # (Auto) 4.1 Lymph # (Auto) 1.6 [place] # (Auto) 1.1 H Eos # (Auto) 0.1 Baso # (Auto) 0.0 WBC Differential . Differential Comment . PT INR APTT D-Dimer Quant (PE/DVT) Sodium 127 L Potassium 3.5 Chloride 91 L Carbon Dioxide 28.8 Anion Gap 7 BUN 11 Creatinine 0.65 Estimated GFR Greater than 89 POC Glucose 139 H Random Glucose 116 H Calcium 7.5 L Total Bilirubin AST ALT Alkaline Phosphatase Total Creatine Kinase 119 CK-MB (CK-2) Troponin I 0.03 B-Natriuretic Peptide Total Protein Albumin Lipase Ur Collection Type Urine Color Urine Clarity Urine pH Ur Specific [place] Urine Protein Urine Glucose (UA) Urine Ketones Urine Occult Blood Urine Nitrate Urine Bilirubin Urine Ictotest Urine Urobilinogen Ur Leukocyte Esterase Urine WBC Ur Squamous Epith Cells Urine Bacteria Micro UA Comment Ur Microscopic Review Urine Culture Comments 01/31/18 06:45 CBC w Diff WBC RBC Hgb Hct MCV MCH MCHC RDW Plt Count MPV Neut % (Auto) Lymph % (Auto) [place] % (Auto) Eos % (Auto) Baso % (Auto) Neut # (Auto) Lymph # (Auto) [place] # (Auto) Eos # (Auto) Baso # (Auto) WBC Differential Differential Comment PT INR APTT D-Dimer Quant (PE/DVT) Sodium Potassium Chloride Carbon Dioxide Anion Gap BUN Creatinine Estimated GFR POC Glucose Random Glucose Calcium Total Bilirubin AST ALT Alkaline Phosphatase Total Creatine Kinase 102 CK-MB (CK-2) Troponin I Less than 0.02 L B-Natriuretic Peptide Total Protein Albumin Lipase Ur Collection Type Urine Color Urine Clarity Urine pH Ur Specific [place] Urine Protein Urine Glucose (UA) Urine Ketones Urine Occult Blood Urine Nitrate Urine Bilirubin Urine Ictotest Urine Urobilinogen Ur Leukocyte Esterase Urine WBC Ur Squamous Epith Cells Urine Bacteria Micro UA Comment Ur Microscopic Review Urine Culture Comments - Imaging Impressions Chest X-Ray 01/30/18 10:45 CONCLUSION: Central interstitial prominence with bronchial wall thickening which may represent bronchitis. Mild cardiomegaly No evidence of peripheral consolidating airspace disease. Assessment and Plan - Assessment (1) Chest pain Code(s): R07.9 - Chest pain, unspecified Status: Acute (2) Hypokalemia Code(s): E87.6 - Hypokalemia Status: Acute - Plan Chest pain, atypical -Could be secondary to A. fib with RVR, however patient does have increased risk factors include age, hypertension, hyperlipidemia, family history of heart disease, diabetes -Patient has been ruled out for acute coronary event with serial cardiac enzymes and have remained negative -Serial EKGs reviewed by myself that shows atrial fibrillation without any changes -Discussed with . Notified him of her presenting symptoms, negative workup. Negative troponin. Indicated that the patient can be discharged home with outpatient follow-up. -Patient will be continued on beta-malcolm, nitroglycerin, statin. -Continue monitor telemetry -Oxygen as needed Atrial fibrillation with RVR -At home patient did have heart rate up to 150. However 110 in the emergency department here. Heart rate is improved after administration of potassium -Likely worsening of her atrial fibrillation secondary to significant hypokalemia -Continue monitor telemetry -Home medications were continued for rate control to include metoprolol -Anticoagulation with Xarelto Hypokalemia -Patient does have chronic hypokalemia usually on KCl 10 mEq daily, however she has had increased amount of loose stools lately which could contribute to potassium loss -Continue to replete and monitor as needed Irritable bowel syndrome with loose stools -Imodium as needed Diabetes -Accu-Cheks with sliding scale insulin Hypertension, hyperlipidemia -Home medications were continued DVT prevention -Patient is on Xarelto -Sequential compression devices Discharge Planning: Discharge home in stable condition Activity: Ad doron. Diet: Healthy heart/diabetic diet Medication per medication reconciliation Follow-up with primary medical doctor in 1 week
[2018-01-31 08:00] LABS: Creatine Kinase MB 1.5 ng/mL (0.5-3.6)
[2018-01-31 09:30] VITALS: BP 150/66; PULSE 65; RESP 20; TEMP 97.3; O2SAT 91
[2018-01-31 10:16] LABS: Anion Gap 9 meq/L (5-15); Blood Urea Nitrogen 10 mg/dL (7-18); Calcium 7.6 mg/dL (8.5-10.1); Carbon Dioxide 28.4 meq/L (21.0-32.0); Chloride 99 meq/L (98-107); Glomerular Filtration Rate Greater Than 89 mL/min (>89); Glucose,Random 102 mg/dL (74-106); Potassium 3.6 meq/L (3.5-5.1); Sodium 136 meq/L (136-145)
[2018-01-31] MEDS: Insulin NovoLOG Aspart Correctional Sugar Inj SQ SCH (10:45)
[2018-01-31] MEDS: Rivaroxaban 20 MG Tablet PO SCH (10:47)
[2018-01-31] MEDS: Fenofibrate 145 MG Tablet PO SCH (10:47)
[2018-01-31] MEDS: FLUoxetine 20 MG Capsule PO SCH (10:47)
[2018-01-31] MEDS: hydrALAZINE 50 MG Tablet PO SCH (10:47)
[2018-01-31] MEDS: hydroCHLOROthiazide 25 MG Tablet PO SCH (10:48)
[2018-01-31] MEDS: Isosorbide Mononitrate 30 MG ER 24HR Tablet (Imdur) PO SCH (10:48)
[2018-01-31] MEDS: amLODIPine 5 MG Tablet PO SCH (10:48)
[2018-01-31] MEDS: Brimonidine 0.2% Opth Drops 5 ML Bottle EACH EYE SCH (10:51)
[2018-01-31] MEDS: Timolol 0.5% Drops 5 ML Bottle EACH EYE SCH (10:51)
[2018-01-31] MEDS: Budesonide-Formoterol 160/4.5 MCG 6 GM Inhaler INH SCH (10:51)
[2018-01-31 13:04] LABS: Chol/HDL Ratio 2.34 Ratio; HDL Cholesterol 41.3 mg/dL (40.0-60.0)
--- NOTE | 2018-01-31 14:13 | ECG ---
Date Performed: 01/30/2018 Time Performed: 10:24:50 PTAGE: 72 years EKG: ATRIAL FIBRILLATION WITH RAPID VENTRICULAR RESPONSE NONSPECIFIC ST & T-WAVE ABNORMALITY CON HEALTHCARE SCIENCE SPECIALIST INFEROLATERAL ISCHEMIA ABNORMAL RHYTHM ECG PREVIOUS TRACING : 04/26/2017 06.18 DOCTOR: Obed Herrera Interpretating Date/Time 01/31/2018 14:12:00
--- NOTE | 2018-01-31 14:13 | ECG ---
Date Performed: 01/30/2018 Time Performed: 17:23:13 PTAGE: 72 years EKG: SINUS BRADYCARDIA MODERATE ST DEPRESSION PROLONGED QT INTERVAL ABNORMAL ECG CONSIDER INFERO LATERAL ISCHEMIA PREVIOUS TRACING : 01/30/2018 10.24 DOCTOR: Obed Herrera Interpretating Date/Time 01/31/2018 14:12:09
--- NOTE | 2018-01-31 14:13 | ECG ---
Date Performed: 01/31/2018 Time Performed: 08:48:18 PTAGE: 72 years EKG: Sinus rhythm POSSIBLE LEFT ATRIAL ENLARGEMENT MODERATE ST DEPRESSION PROLONGED QT INTERVAL CONSIDER INFEROLATERAL ISCHEMIA ABNORMAL ECG PREVIOUS TRACING : 01/30/2018 17.23 DOCTOR: Obed Herrera Interpretating Date/Time 01/31/2018 14:17:56
== END 2018-01-31 13:25 | disposition home or self-care (01) ==
LOC: PHED 10:19 → PHEDA 10:19 → PH3 14:02
PROVIDERS: ADMIT Hospitalist; ATTEND Hospitalist
DX: E78.00 Pure hypercholesterolemia, unspecified; I48.91 Unspecified atrial fibrillation; Z83.3 Family history of diabetes mellitus; J40 Bronchitis, not specified as acute or chronic; Z90.710 Acquired absence of both cervix and uterus; E87.6 Hypokalemia; Z82.49 Family history of ischemic heart disease and other diseases of the circulatory system; L29.9 Pruritus, unspecified; Z88.5 Allergy status to narcotic agent; K58.9 Irritable bowel syndrome, unspecified; Z90.49 Acquired absence of other specified parts of digestive tract; Z79.51 Long term (current) use of inhaled steroids; I11.9 Hypertensive heart disease without heart failure; Z79.84 Long term (current) use of oral hypoglycemic drugs; E11.9 Type 2 diabetes mellitus without complications; E78.5 Hyperlipidemia, unspecified; Z79.01 Long term (current) use of anticoagulants; R07.9 Chest pain, unspecified; M19.90 Unspecified osteoarthritis, unspecified site